=== PATIENT | male | born 1970 | race Caucasian/White ===

== ENCOUNTER 2017-12-05 10:55 | Emergency (ER) | payer MEDICAID, SELFPAY ==
[2017-12-05 10:56] VITALS: BP 152/94; PULSE 109; RESP 16; TEMP 36.4; O2SAT 96; BMI 31.8
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
[2017-12-05] MEDS: Tetracaine 0.5% Ophthalmic Bottle 1 DRP LEFT EYE (11:30)
--- NOTE | 2017-12-05 13:10 | ED.DEP ---
ED Disposition - Plan for ED Patient: Disposition: Home or Assisted Living Chief Complaint: Eye Problem Instructions: ED Eye Injury Corneal Abrasion Referrals: Care Physician,No Primary [Primary Care Provider] - Dio Arredondo MD [STAFF PHYSICIAN] - As soon as possible Additional Instructions: Go to Dr. Arredondo' office immediately for an eye exam. Do not go home first or go get lunch. [address] [place] [address]
== END 2017-12-05 13:18 | disposition home or self-care (01) ==
PROVIDERS: Emergency Provider Emergency Medicine
DX: S05.02XA Injury of conjunctiva and corneal abrasion without foreign body, left eye, initial encounter (principal); H57.12 Ocular pain, left eye; W22.8XXA Striking against or struck by other objects, initial encounter; Y93.9 Activity, unspecified; Y92.9 Unspecified place or not applicable; Y99.0 Civilian activity done for income or pay; Z72.0 Tobacco use
CPT/HCPCS: 99281

== ENCOUNTER 2018-09-23 13:52 | Emergency (ER) | payer MEDICAID, SELFPAY ==
[2018-09-23 13:54] VITALS: BP 164/77; PULSE 106; RESP 17; TEMP 37.1; O2SAT 98; BMI 36.3
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
--- NOTE | 2018-09-23 15:19 | ED.DEP ---
ED Disposition - Plan for ED Patient: Instructions: ED Tooth Pain Prescriptions: Oxycodone HCl/Acetaminophen [Percocet 5/325] 1 tablet PO Q6H PRN PRN 3 Days #12 tablet PRN Reason: Pain Penicillin V Potassium 500 mg PO 4X/DAY #40 tablet
--- NOTE | 2018-09-23 15:31 | ED.VISSUMM ---
- ER Visit Summary Date of Service: 09/23/18 Chief Complaint: Toothache History of Present Illness: The patient is a 48 M presenting with dental pain. He states this started yesterday. He has pain right lower jaw. He has an appointment with his dentist next Sunday. He has tried Tylenol at home. Denies other complaints. Physical Examination: Vitals are stable. Patient is afebrile. Alert no acute distress. HEENT exam right lower molar tenderness with no surrounding fluctuance. No sublingual edema Neck is supple. Lungs are clear and equal bilaterally. Heart is regular rate and rhythm. Extremities are unremarkable. Skin is warm and dry. No focal neurologic deficit. Remainder of exam is unremarkable. Emergency Department Course and Treatment: Patient was given Percocet x1, penicillin. He is advised to follow-up with his dentist as scheduled. Advised return to ED if worsening complaints. Disposition: Discharge home Impression: Odontalgia This note was generated with [employer] dictation software. It may contain incorrect words, spelling, and punctuation that were not noted in review of the chart prior to signing ED Disposition - Plan for ED Patient: Instructions: ED Tooth Pain Prescriptions: Oxycodone HCl/Acetaminophen [Percocet 5/325] 1 tablet PO Q6H PRN PRN 3 Days #12 tablet PRN Reason: Pain Penicillin V Potassium 500 mg PO 4X/DAY #40 tablet
[2018-09-23] MEDS: oxyCODONE 5 MG Tablet PO (15:37)
[2018-09-23] MEDS: Penicillin Vk 250 MG Tablet 500 MG PO (15:37)
== END 2018-09-23 15:42 | disposition home or self-care (01) ==
PROVIDERS: Emergency Provider Emergency Medicine
DX: K08.89 Other specified disorders of teeth and supporting structures (principal); Z72.0 Tobacco use
CPT/HCPCS: 99283

== ENCOUNTER 2018-10-22 02:03 | Emergency (ER) | payer MEDICAID, SELFPAY ==
[2018-10-22 02:05] VITALS: BP 151/126; PULSE 102; RESP 18; TEMP 36.9; O2SAT 96; BMI 33.0
[2018-10-22 02:10] VITALS: BP 158/81
[2018-10-22] MEDS: HYDROcodone Bitartrate/Apap 5/325 Tablet PO (03:33)
[2018-10-22] MEDS: Clindamycin HCl 150 MG Capsule 300 MG PO (03:40)
[2018-10-22 03:43] VITALS: BP 145/82; PULSE 92; RESP 18; O2SAT 94
--- NOTE | 2018-10-22 03:44 | ED.DCSUM_ITS ---
- ER Visit Summary Date of Service: 10/22/18 Chief Complaint: Dental pain and right leg pain History of Present Illness: The patient is a 48 M who presents with dental pain and right leg pain. His dental pain is been present for 3 days. He complains of left lower dental pain. He has an appointment with a dentist next week. He also was recently treated with penicillin for right-sided dental pain about 2-3 weeks ago. He also complains of right leg pain and swelling for the past 4 days. This is isolated to the calf. He is concerned because he has a history of prior DVT. However these were always provoked and related to recent surgery. He denies any injury or surgery. Physical Examination: Heart rate 102 vitals otherwise unremarkable Moist mucous membranes Patient has widespread dental decay no focal dental abscess no facial or jaw swelling Heart regular rate and rhythm Lungs are clear Abdomen soft Patient has edema of the lower extremities, he has some mild baseline edema but notes that it is increased from baseline on the right. 2+ edema on the right, 1+ on the left Patient does have calf tenderness on the right Easily palpable dorsalis pedis pulse with brisk capillary refill skin is warm and no pallor he does not have exam findings suggestive of phlegmasia cerulea dolens Test Results: Declined Emergency Department Course and Treatment: Initial plan was to obtain screening laboratory studies and empirically treat with Lovenox until he can return for venous duplex later today. A venous duplex is not available overnight. However patient states that his ride is here and has to be at work. He states that he needs to leave. I explained that I do not feel empirically getting anticoagulation without having laboratory studies is safe. Given that he can have an ultrasound in several hours I feel empiric Lovenox at this point versus several hours from now is likely of only minimal benefit regardless. He does understand to return for new or worsening. Venous duplex was ordered for once ultrasound is available this morning. Patient discharged. Treatment Plan: [] Disposition: Discharge Impression: Odontalgia Right leg pain and swelling This note was generated with [employer] dictation software. It may contain incorrect words, spelling, and punctuation that were not noted in review of the chart prior to signing ED Disposition - Plan for ED Patient: Referrals: Care Physician,No Primary [Primary Care Provider] -
--- NOTE | 2018-10-22 03:46 | DCINST.ED_ITS ---
ED Disposition - Plan for ED Patient: Instructions: ED Tooth Pain, ED Leg Swelling Unilateral Prescriptions: Hydrocodone Bitart/Apap 5-325 [[place] 5MG-325MG] 1 tab PO Q6H PRN PRN 3 Days #10 tab PRN Reason: Pain Clindamycin HCl [Cleocin] 300 mg PO TID #30 cap Referrals: Care Physician,No Primary [Primary Care Provider] -
--- NOTE | 2018-10-22 03:50 | ED.RN ---
PATIENT DID NOT HAVE A RIDE TO GET HOME SO HE DID NOT WANT TO STAY AND GET THE BLOOD WORK DONE. HE IS GOING TO COME BACK FOR THE VENOUS DOPPLER LATER TODAY THOUGH.
== END 2018-10-22 03:50 | disposition home or self-care (01) ==
PROVIDERS: Emergency Provider Emergency Medicine
DX: K08.89 Other specified disorders of teeth and supporting structures (principal); K02.9 Dental caries, unspecified; R19.7 Diarrhea, unspecified; M79.604 Pain in right leg; R60.0 Localized edema; M79.89 Other specified soft tissue disorders; Z72.0 Tobacco use; Z86.718 Personal history of other venous thrombosis and embolism
CPT/HCPCS: 99283

== ENCOUNTER → 2018-10-23 15:23 | Outpatient (CLI) | payer MEDICAID, SELFPAY ==
[2018-10-22 02:05] VITALS: BMI 33.0
--- NOTE | 2018-10-23 15:27 | VDLE_ITS ---
Reason For Study: SWELLING RIGHT LEFT GSV is normal. CFV is compressible, spontaneous, phasic, CFV is compressible, spontaneous, phasic, competent, and demonstrates normal competent and demonstrates normal augmentation. augmentation. FV is compressible, spontaneous, phasic, competent and demonstrates normal augmentation. POP V is compressible, spontaneous, phasic, competent and demonstrates normal augmentation. T/P Trunk is compressible. PTV is compressible. RT PerV is compressible. Procedure Exam performed in department. The exam was diagnostic. A preliminary report was called and/or faxed to Dr. Calderon ED. Interpretation Summary Deep veins of the right lower extremity are patent and compressible segmentally. There is no evidence of right lower extremity deep vein thrombosis. Valvular competence appears intact within the proximal deep venous system on the right . The right greater saphenous vein appears patent and compressible segmentally. Ordering Physician: Lance Calderon Referring Physician: LEANA PCP Performed By: Jinny Bustamante, MCKENZIE, RVT
== END ==
PROVIDERS: Referring Provider Emergency Medicine; Visit Provider Emergency Medicine
DX: M79.89 Other specified soft tissue disorders (principal)
CPT/HCPCS: 93971

== ENCOUNTER 2018-12-02 13:09 | Emergency (ER) | payer MEDICAID, SELFPAY ==
[2018-12-02 13:10] VITALS: BP 143/93; PULSE 101; RESP 18; TEMP 36.7; O2SAT 95; BMI 30.9
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
[2018-12-02] MEDS: Famotidine 20 MG Tablet 40 MG PO (14:32)
[2018-12-02] MEDS: Erythromycin Base 1 OPTH.TUBE 1 APPLIC EACH EYE ×2 (14:33→16:14)
[2018-12-02] MEDS: DiphenhydrAMINE 25 MG Capsule 50 MG PO (14:33)
[2018-12-02 15:11] LABS: Absolute Lymphocyte Count 1.46 X10^3/ul (0.83-4.51); Basophil# 0.04 X10^3/uL; Basophil% 0.5 % (0-1); Eosinophil# 0.23 X10^3/uL; Hematocrit 46.1 % (40-54); Hemoglobin 15.4 g/dl (13.0-16.5); Lymphocyte # 1.46 X10^3/ul (4.0); Lymphocyte % 19.3 % (19-41); Mean Corp Hgb Conc 33.4 g/gl (32-36); Mean Corpuscular Hgb 32.3 pg (27.0-32.0); Mean Corpuscular Volume 96.6 fL (80-94); Mean Platelet Vol. 10.5 fl (6.2-12.0); Monocyte# 0.82 X10^3/uL; Monocyte% 10.8 % (0-10); Neutrophil # 4.99 X10^3/uL (2.7-7.7); Neutrophil % 66.1 % (47-70); Platelet Count 195 K/mm3 (150-450); RBC Distribution Width CV 13.1 % (11.6-14.6); RBC Distribution Width SD 46.3 fl (35.1-43.9); Red Blood Count 4.77 M/mm3 (4.6-6.2); White Blood Count 7.6 K/mm3 (4.4-11.0)
[2018-12-02] MEDS: Ondansetron 4 MG/2 ML Vial IV (15:12)
[2018-12-02] MEDS: Morphine 4 MG/ML Syringe IV (15:12)
[2018-12-02 15:13] LABS: POSITIVE COUNT NO; POSITIVE DIFFERENTIAL NO; POSITIVE MORPHOLOGY NO
[2018-12-02] MEDS: 0.9% Normal Saline 1,000 ML 30 ML IV (15:13)
[2018-12-02 15:24] LABS: AST(SGOT) 147 U/L (15-37); Albumin, Serum 3.6 g/dL (3.2-5.0); Alkaline Phosphatase 108 U/L (45-117); BUN 11 mg/dL (7-18); BUN/Creat Ratio 13.7 RATIO (10-20); Calcium,Total 8.8 mg/dL (8.5-10.1); EST Glomerular Filtration Rate 108 mL/min (>60); Est Glom Filt Rate - Afr Amer 131 mL/min (>60); Estimated Creatinine Clearance 124.84 ml/min; Globulin 4.2 g/dL (2.2-4.2); Glucose 115 mg/dL (74-106); Lipase 123 U/L (73-393); Protein, Total 7.8 g/dL (6.4-8.2)
[2018-12-02 15:25] LABS: Alanine Aminotransfer ALT/SGPT 267 U/L (16-61); Anion Gap 3 (5-15); Bilirubin, Direct 0.16 mg/dL (0.00-0.30); Chloride 105 mmol/L (98-107); Sodium Level 136 mmol/L (136-145)
--- NOTE | 2018-12-02 16:02 | ED.DEP ---
ED Disposition - Plan for ED Patient: Instructions: ED Bite Sting Insect Gen Allergic React Referrals: Care Physician,No Primary [Primary Care Provider] - Additional Instructions: Please take Benadryl [id number] every 6 hours, Pepcid 20 mg twice a day [id number], consider using Aveeno bath to help with the rash follow-up with your outpatient providers tomorrow
--- NOTE | 2018-12-02 16:03 | DCINST.ED_ITS ---
ED Disposition - Plan for ED Patient: Instructions: ED Bite Sting Insect Gen Allergic React Referrals: Care Physician,No Primary [Primary Care Provider] - Additional Instructions: Please take Benadryl [id number] every 6 hours, Pepcid 20 mg twice a day [id number], consider using Aveeno bath to help with the rash follow-up with your outpatient providers tomorrow
[2018-12-02 16:28] VITALS: BP 136/77; PULSE 79; RESP 18; O2SAT 95
== END 2018-12-02 16:28 | disposition home or self-care (01) ==
LOC: ED 14:36
PROVIDERS: Emergency Provider Emergency Medicine
DX: L50.0 Allergic urticaria (principal); H10.9 Unspecified conjunctivitis; R10.9 Unspecified abdominal pain; G89.29 Other chronic pain
CPT/HCPCS: 80048; 80076; 83690; 85025; 96374; 96375; 99285; J7030; A4216; J2405

== ENCOUNTER 2019-03-11 09:08 | Emergency (ER) | payer MEDICAID, SELFPAY ==
[2019-03-11 09:09] VITALS: BP 154/93; PULSE 109; RESP 17; TEMP 36.7; O2SAT 96; BMI 33.6
--- NOTE | 2019-03-11 09:22 | ED.VISSUMM ---
- ER Visit Summary Date of Service: 03/11/19 Chief Complaint: Left lower lip swelling History of Present Illness: The patient is a 48 M no significant past medical history. Patient just takes [id number] medication. He states that he has a cold sore on his left lower lip. He lanced it last night and is developed swelling in his left lower lip today. Said he used a needle and he lanced it twice. Physical Examination: Middle-aged male no acute distress vital signs stable afebrile. HEENT exam very poor dentition. Mild gum swelling. His left lower lip is swollen. Mildly tender. This may just be swelling and bruising and soft tissue versus an early infection. Otherwise his face is unremarkable. He has no trouble swallowing or breathing. No signs of Scott's angina. Neck is nontender without lymphadenopathy. Lungs are clear to auscultation. Heart is regular rhythm without murmur. Abdomen is soft and nontender. He has chronic 1+ edema both lower extremities. He is moving all 4 extremities. Neurologically he is awake and alert with no focal motor deficits. Test Results: None Emergency Department Course and Treatment: Clinically this may just be soft tissue swelling from bleeding into the gum after he lanced it to be cautious I will start him on antibiotic due to his poor dentition and the risk that this is an early infection after he lanced himself. Will be given a dose of Pen-Vee K in the ER. He has a dental appointment later this week. Treatment Plan: Pen-Vee K 4 times daily for 7 days. Ice to the area. Motrin for pain and swelling. Disposition: Discharge Impression: Left lower lip swelling after lancing a blister Left lower lip hematoma rule out infection This note was generated with [employer] dictation software. It may contain incorrect words, spelling, and punctuation that were not noted in review of the chart prior to signing ED Disposition - Plan for ED Patient: Referrals: Care Physician,No Primary [Primary Care Provider] -
--- NOTE | 2019-03-11 09:25 | ED.DEP ---
ED Disposition - Plan for ED Patient: Disposition: Home or Assisted Living Prescriptions: Penicillin Vk [Pen-Vee K , V-Cillin K] 500 mg PO 4X/DAY #30 tab Prescription Printed Referrals: Fadi Landin MD [NON-STAFF] - As Needed Additional Instructions: Ice to your lip 4 times a day for the next 2 days for 30 minutes to an hour each time. Motrin for pain and swelling. Penicillin 1 pill 4 times a day for the next 7 days in case this is an early infection. This may just be soft tissue swelling from you lancing the blister. Follow-up with your dentist.
[2019-03-11 09:45] VITALS: BP 113/77; PULSE 62; RESP 15; O2SAT 98
[2019-03-11] MEDS: Penicillin Vk 250 MG Tablet 500 MG PO (09:53)
== END 2019-03-11 09:54 | disposition home or self-care (01) ==
LOC: ED 09:32
PROVIDERS: Emergency Provider Emergency Medicine
DX: S00.531A Contusion of lip, initial encounter (principal); X58.XXXA Exposure to other specified factors, initial encounter; Y92.9 Unspecified place or not applicable; Z72.0 Tobacco use
CPT/HCPCS: 99283

== ENCOUNTER 2019-03-29 16:30 | Emergency (ER) | payer MEDICAID, SELFPAY ==
[2019-03-29 16:32] VITALS: BP 127/89; PULSE 114; RESP 18; TEMP 36.9; O2SAT 96; BMI 39.2
--- NOTE | 2019-03-29 16:53 | CT_ITS ---
STUDY: CT ABDOMEN AND PELVIS WITHOUT CONTRAST REASON FOR EXAM: Male, 48 years old. Left testicular left flank pain, prior bowel surgery RADIATION DOSAGE (If Supplied By Facility): CTDIvol = ( 23.58 ) mGy, DLP = ( 1437.42 ) mGycm TECHNIQUE: Transaxial images were obtained from the dome of the diaphragm to the symphysis pubis without oral contrast, and without intravenous contrast. Sagittal and coronal images were reconstructed. Individualized dose optimization techniques were used for this CT. COMPARISON: 09 November 2014 FINDINGS: The visualized lung bases are unremarkable. The visualized portions of the heart are within normal limits. The liver is fatty infiltrated without focal lesions.. Normal gallbladder and extrahepatic biliary system. Normal spleen. Normal pancreas. Normal bilateral adrenal glands. Normal right kidney. Normal left kidney. There is no intestinal obstruction. Normal abdominal aorta. Normal inferior vena cava. Normal retroperitoneum. Normal urinary bladder. There is ventral abdominal mesh hernia repair. There is a left inguinal fat hernia.. Normal osseous structures. There is possible scrotal hydrocele. Refer to dedicated ultrasonographic examination. CT/Abdomen/Pelvis without Cont IMPRESSION: 1. No acute abdominal findings. 2. No urinary stones. 3. Left inguinal fat hernia, not containing bowel. Electronically Signed: Liset Orellana, at 18:07 EDT Tel , Service support ,
--- NOTE | 2019-03-29 16:54 | US_ITS ---
STUDY: TESTICULAR ULTRASONOGRAPHY REASON FOR EXAM: Male, 48 years old. TECHNIQUE: Grayscale and Doppler ultrasonography of the scrotum was performed. COMPARISON: None. FINDINGS: The right testis measures 4.3 x 3.6 x 2.8 cm. Vascular flow is normal. The left testis measures 4.3 x 3.5 x 3 cm. There is increased blood flow to the left testicle and epididymis. There is a 5 mm epididymal cyst. There is a loculated left hydrocele. US/Testicular with Arterial Flow IMPRESSION: 1. Possible left epididymoorchitis. 2. Loculated left hydrocele. Electronically Signed: Liset Orellana, at 18:23 EDT Tel , Service support ,
[2019-03-29] MEDS: 0.9% Normal Saline 1,000 ML 1000 ML IV (17:08)
[2019-03-29] MEDS: Morphine 4 MG/ML Syringe IV ×2 (17:08→18:11)
[2019-03-29] MEDS: Ondansetron 4 MG/2 ML Vial IV (17:08)
--- NOTE | 2019-03-29 17:17 | ED.VIS.GEN ---
History of Present Illness Informant: Patient Onset: Days - 2 days Context: Gradual Onset Timing: Continuous Quality: sharp Location: left testicle Current Severity: Severe Maximum Severity: Severe Worsened by: movement, palpation Relieved by: nothing Associated Symptoms: flank back and low back pain Narrative: 48-year-old male presents to the emergency department with 2 days of progressively worsening left testicular pain. He states it woke him up from sleep 2 days ago in the morning. It is been constant since that time. They radiates to his left lower quadrant and left flank and he is also having left lower back pain. Is worse with any type of palpation or movement. Nothing that he is tried is made it feel better. He states that he has been having hematuria since this morning, total of 2 episodes. He is also having some pressure with urination. No frequency or urgency. No nausea vomiting or diarrhea. No fevers. He denies abdominal or testicular trauma. He states that he is not concerned for an STD but he is sexually active but he states with only one partner. Denies history of testicular torsion, STD. Denies history of kidney stones. He has a history of multiple abdominal surgeries secondary to right inguinal hernia, as well as a volvulus. He denies any other review of systems. Prior similar symptoms: No Recent Illness/Hospitalization: No <Liam Cordoba - Last Filed: 03/29/19 17:17> <Mireya Macedo - Last Filed: 03/29/19 21:49> Chief Complaint: Male Pain/Injury Past Medical History Prior records reviewed: Yes Past Medical History: - - Hep C, Fatty liver disease, Surgical History: colectomy, herniorrhaphy Lives: Alone Smoking Status: Current every day smoker Alcohol: Occasional Drugs: Marijuana <Liam Cordoba - Last Filed: 03/29/19 17:17> <Mireya Macedo - Last Filed: 03/29/19 21:49> - Allergies and Home Meds Allergies/Adverse Reactions: Allergies No Known Allergies Allergy (Verified 03/29/19 16:31) Primary Care Physician: Care Physician,No Primary [Primary Care Provider] - Review of Systems All systems negative except as indicated General: Denies: Chills, Fever Gastrointestinal: Reports: Abdominal pain Genitourinary: Reports: Dysuria, Hematuria, - - left testicular pain <Liam Cordoba - Last Filed: 03/29/19 17:17> Physical Exam Vital Signs/Narrative: Vital Signs Temp Pulse Resp BP Pulse Ox 03/29/19 16:32 98.4 F 114 H 18 127/89 H 96 Inital Vital Signs reviewed: Yes General: Well nourished, Well developed, Obese, No Acute Distress Head: Normocephalic, Atraumatic Eyes: Perrl, EOMI ENT: Moist mucous membranes Neck: Supple, Nontender Cardiovascular: Regular rate, Regular rhythm, No murmurs Respiratory: No distress, CTA bilaterally, Chest nontender Abdomen: Soft, Nondistended, Normal bowel sounds, No masses, Tender. Negative for: Umbilical hernia, Hernia irreducible : - - Scrotum is swollen worse on the left. Left testicle is tender on palpation. No masses are palpated. There is no scrotal warmth or erythema, rash, or gangrenous changes. There is no palpable inguinal lymphadenopathy. I do not appreciate an obvious hernia. Back: Nontender, Normal Inspection Extremities: Nontender, No edema Skin: Normal color, No rash Neurological: Alert, Oriented x3 Psychological: Normal affect <Liam Cordoba - Last Filed: 03/29/19 17:17> Vital Signs/Narrative: Vital Signs Temp Pulse Resp BP Pulse Ox 03/29/19 20:39 100.0 F H 03/29/19 20:00 18 03/29/19 18:30 111 H 18 145/87 H 93 <Mireya Macedo - Last Filed: 03/29/19 21:49> Diagnostic/Tx/Re-eval Impressions Abdomen/Pelvis CT 03/29/19 16:53 IMPRESSION: 1. No acute abdominal findings. 2. No urinary stones. 3. Left inguinal fat hernia, not containing bowel. Electronically Signed: Liset Orellana, at 18:07 EDT Tel , Service support , Testicular Ultrasound 03/29/19 16:54 IMPRESSION: 1. Possible left epididymoorchitis. 2. Loculated left hydrocele. Electronically Signed: Liset Orellana, at 18:23 EDT Tel , Service support , 03/29/19 16:53 Abdomen/Pelvis without Cont [CT] Stat 03/29/19 16:54 US Testicular [Testicular with Arterial Flow] [US] Stat Laboratory Results 03/29/19 03/29/19 03/29/19 17:08 17:08 18:16 WBC 21.4 H RBC 4.84 Hgb 16.0 Hct 47.7 MCV 98.6 H MCH 33.1 H MCHC 33.5 RDW Std Deviation 44.1 H RDW Coeff of Tg 12.2 Plt Count 261 MPV 10.1 Immature Gran % (Auto) 0.700 Neut % (Auto) 83.7 H Lymph % (Auto) 6.0 L [place] % (Auto) 8.9 Eos % (Auto) 0.4 Baso % (Auto) 0.3 Absolute Neuts (auto) 17.9 H Absolute Lymphs (auto) 1.29 Nucleated RBC % 0 Differential Comment SCANNED Diff Path Review May foll Sodium 134 L Potassium 3.8 Chloride 100 Carbon Dioxide 30.0 Anion Gap 4 L BUN 9 Creatinine 0.85 Estim Creat Clear Calc 114.12 Est GFR (MDRD) Af Amer 122 Est GFR (MDRD) Non-Af 101 BUN/Creatinine Ratio 10.5 Glucose 143 H Lactic Acid 1.4 Calcium 9.4 Urine Color Urine Clarity Urine pH Ur Specific Gabriels Urine Protein Urine Glucose (UA) Urine Ketones Urine Occult Blood Urine Nitrite Urine Bilirubin Urine Urobilinogen Ur Leukocyte Esterase Urine RBC Urine WBC Ur Squamous Epith Cells Urine Bacteria Urine Mucus 03/29/19 20:40 WBC RBC Hgb Hct MCV MCH MCHC RDW Std Deviation RDW Coeff of Tg Plt Count MPV Immature Gran % (Auto) Neut % (Auto) Lymph % (Auto) [place] % (Auto) Eos % (Auto) Baso % (Auto) Absolute Neuts (auto) Absolute Lymphs (auto) Nucleated RBC % Differential Comment Diff Path Review Sodium Potassium Chloride Carbon Dioxide Anion Gap BUN Creatinine Estim Creat Clear Calc Est GFR (MDRD) Af Amer Est GFR (MDRD) Non-Af BUN/Creatinine Ratio Glucose Lactic Acid Calcium Urine Color Yellow Urine Clarity Sl. Cloudy Urine pH 7.0 Ur Specific Gabriels 1.005 Urine Protein Negative Urine Glucose (UA) Normal Urine Ketones Negative Urine Occult Blood 25 H Urine Nitrite Positive H Urine Bilirubin Negative Urine Urobilinogen Normal Ur Leukocyte Esterase 500 H Urine RBC 0 SEEN Urine WBC 50-100 SEEN Ur Squamous Epith Cells 0-5 SEEN Urine Bacteria 4+ Urine Mucus 0 SEEN - Medical Decision Making Patient was given morphine, Zofran, and IV fluids. He was given a p.o. dose of Levaquin. I spoke with Dr. Segura to help arrange close follow-up. He states that it would be reasonable to try outpatient treatment, but if the patient worsens he may require inpatient treatment. Patient and family at bedside are comfortable with this plan. <Mireya Macedo - Last Filed: 03/29/19 21:49> ED Disposition <Liam Cordoba - Last Filed: 03/29/19 17:17> <Mierya Macedo - Last Filed: 03/29/19 21:49> - Plan for ED Patient: Disposition: Home or Assisted Living Diagnosis: Epididymoorchitis Instructions: Epididymitis, Orchitis Prescriptions: levoFLOXacin tablet [Levaquin] 500 mg PO DAILY #10 tablet Oxycodone HCl/Acetaminophen [Percocet 5/325] 1 tablet PO Q6H PRN PRN 3 Days #12 tablet PRN Reason: Pain Referrals: Levi Segura MD [STAFF PHYSICIAN] - 3-5 Days
[2019-03-29 17:26] LABS: Absolute Lymphocyte Count 1.29 X10^3/uL (0.83-4.51); Absolute Neutrophil Count 17.9 X10^3/uL (2.0-7.7); Basophil# 0.07 X10^3/uL; Basophil% 0.3 % (0-1); Eosinophil# 0.09 X10^3/uL; Eosinophils% 0.4 % (0-5); Hematocrit 47.7 % (40-54); Lymphocyte # 1.29 X10^3/ul (4.0); Mean Corp Hgb Conc 33.5 g/dL (32-36); Mean Corpuscular Hgb 33.1 pg (27.0-32.0); Mean Corpuscular Volume 98.6 fL (80-94); Mean Platelet Vol. 10.1 fl (6.2-12.0); Monocyte% 8.9 % (0-10); NRBC Flagged by Analyzer 0 % (0-5); Neutrophil # 17.92 X10^3/uL (2.7-7.7); Neutrophil % 83.7 % (47-70); POSITIVE DIFFERENTIAL YES; Platelet Count 261 K/mm3 (150-450); RBC Distribution Width CV 12.2 % (11.6-14.6); RBC Distribution Width SD 44.1 fl (35.1-43.9); Red Blood Count 4.84 M/mm3 (4.6-6.2); White Blood Count 21.4 K/mm3 (4.4-11.0)
[2019-03-29 17:27] LABS: Differential Indicated SCAN CRITERIA MET
[2019-03-29 17:32] LABS: Anion Gap 4 (5-15); BUN 9 mg/dL (7-18); BUN/Creat Ratio 10.5 RATIO (10-20); Calcium,Total 9.4 mg/dL (8.5-10.1); Chloride 100 mmol/L (98-107); Creatinine, Serum 0.85 mg/dL (0.70-1.30); EST Glomerular Filtration Rate 101 mL/min (>60); Est Glom Filt Rate - Afr Amer 122 mL/min (>60); Estimated Creatinine Clearance 114.12 ml/min; Glucose 143 mg/dL (74-106); Potassium 3.8 mmol/L (3.5-5.1); Sodium Level 134 mmol/L (136-145)
[2019-03-29 18:04] LABS: Differential Comment SCANNED
[2019-03-29 18:30] VITALS: BP 145/87; PULSE 111; RESP 18; O2SAT 93
[2019-03-29] MEDS: levoFLOXacin 500 MG Tablet PO (18:51)
[2019-03-29 18:53] LABS: Lactic Acid 1.4 mmol/L (0.4-2.0)
[2019-03-29 20:00] VITALS: RESP 18
[2019-03-29 20:39] VITALS: TEMP 37.8
[2019-03-29 20:47] LABS: Mucous, Urine 0 SEEN /hpf (<or=2+); Red Blood Cells-Urine 0 SEEN /hpf (0-5)
[2019-03-29 20:53] LABS: Color, Urine Yellow (Yellow); Glucose, Dipstick Normal (Normal); Ketone-Dipstick Negative (Negative); Leukocyte Esterase-Dipstick 500 /ul (Negative); Nitrite-Dipstick Positive (Negative); Occult Blood-Urine 25 /ul (Negative); Protein-Dipstick Negative (Negative); Specific Gravity, Urine 1.005 (1.002-1.030); Urine Bilirubin Dipstick Negative (Negative); Urine Clarity Sl. Cloudy (Clear); Urine Urobilinogen Normal (Normal)
[2019-03-29 20:58] LABS: White Blood Cells 50-100 SEEN /hpf (0-5)
[2019-03-29 20:59] LABS: Bacteria 4+ /hpf (None Seen); Squamous Epithelial Cells - UA 0-5 SEEN /hpf (0-5)
[2019-03-29 22:25] LABS: Chlamydia Trachomatis by PCR Negative (Negative); Neisserai gonorrhoeae by PCR Negative (Negative); Probe Check PASS; Sample Adequacy Control PASS; Specimen Processing Control PASS
[2019-04-01 12:19] LABS: Pathologist Review Reviewed
== END 2019-03-29 22:00 | disposition home or self-care (01) ==
PROVIDERS: Emergency Medicine; Emergency Provider Physician Assistant Medical
DX: N45.3 Epididymo-orchitis (principal); R31.9 Hematuria, unspecified; E66.9 Obesity, unspecified; F17.200 Nicotine dependence, unspecified, uncomplicated; Z86.19 Personal history of other infectious and parasitic diseases; Z90.49 Acquired absence of other specified parts of digestive tract
CPT/HCPCS: 74176; 76870; 80048; 81001; 83605; 85025; 87491; 87591; 93976; 96361; 96374; 96375; 96376; 99284; J7030; A4216; J2405

== ENCOUNTER 2019-03-30 23:19 | Emergency (ER) | payer MEDICAID, SELFPAY ==
[2019-03-29 16:32] VITALS: BMI 39.2
[2019-03-30 23:20] VITALS: BP 153/94; PULSE 112; RESP 15; TEMP 36.7; O2SAT 99; BMI 34.9
--- NOTE | 2019-03-31 00:14 | ED.VIS.GEN ---
History of Present Illness Chief Complaint: Male Pain/Injury Informant: Patient Narrative: Patient presents with left testicular swelling. He was seen in the emergency department yesterday with a full work-up and diagnosed with epididymitis orchitis with hydrocele. Lab work showed a white count of 21,000. 4+ bacteria. He is on Levaquin. He has had 2 doses. He comes in because of increased swelling in his left testicle. He was concerned about this. Denies any other new symptoms. He was concerned that his antibiotics are working. Past Medical History - Allergies and Home Meds Allergies/Adverse Reactions: Allergies No Known Allergies Allergy (Verified 03/30/19 23:22) Primary Care Physician: Care Physician,No Primary [Primary Care Provider] - Prior records reviewed: Yes Past Medical History: - - Epididymitis, orchitis Surgical History: colectomy, herniorrhaphy Smoking Status: Current every day smoker Alcohol: None Drugs: None Review of Systems General: Denies: Chills, Fever, Sweats Eyes: Denies: Visual changes - bilaterally, Diplopia ENT: Denies: Rhinorrhea, Sore throat Cardiovascular: Denies: Chest pain, Palpitations Respiratory: Denies: Dyspnea, Cough, Dyspnea on exertion Gastrointestinal: Denies: Abdominal pain, Nausea, Vomiting, Diarrhea, Melena, Hematochezia Genitourinary: Reports: - - See HPI. Denies: Dysuria, Hematuria, Frequency Musculoskeletal: Denies: Back pain, Extremity Pain Skin: Denies: Rash, Wounds Neurological: Denies: Headache, Weakness, Numbness Physical Exam Vital Signs/Narrative: Vital Signs Temp Pulse Resp BP Pulse Ox 03/30/19 23:20 98.0 F 112 H 15 153/94 H 99 General: Well nourished, Well developed, No Acute Distress Head: Normocephalic, Atraumatic Eyes: Perrl, EOMI ENT: Moist mucous membranes, No rhinorrhea Neck: Supple, Nontender Cardiovascular: Regular rate, Regular rhythm, No murmurs Respiratory: No distress, CTA bilaterally, Chest nontender Abdomen: Soft, Nontender, Nondistended, Normal bowel sounds : - - Patient's penis exam is normal. Right testicle and scrotum normal. Left testicle is swollen with a hydrocele and tender in the epididymis as well as the testicle. It is able to be moved around. Negative cremasteric reflex. No evidence of cellulitis or gangrene. At this time patient stated that the swelling is worse and thinks it is double. Back: Nontender, Normal Inspection Extremities: Nontender, No edema Skin: Normal color, No rash Neurological: Alert, Oriented x3, Cranial nerves II-XII grossly intact, Normal Strength, Normal Sensation Psychological: Normal affect, Normal Mood Diagnostic/Tx/Re-eval - Medical Decision Making I discussed care with the patient. He does have an epididymitis orchitis of the left testicle and hydrocele. Yesterday his white count was 21,000. He had 4+ bacteria. He has had 2 doses of levofloxacin. He was concerned because he had increased swelling in his left testicle area. He has been using Percocet with good relief of symptoms. I discussed IV antibiotics and admission with the patient and further lab work. At this time he would like to hold off on this. He wants to give it more time to have the levofloxacin start working. I think this is reasonable. He is not toxic. He does not appear septic. He has more pain medicine at home. He has a follow-up with urology. He will return if he continues to worsen. I do not suspect a testicular torsion. Patient was reassured that his gonorrhea and Chlamydia testing were negative from yesterday. ED Disposition - Plan for ED Patient: Disposition: Home or Assisted Living Diagnosis: Epididymoorchitis Instructions: Orchitis, Epididymitis Referrals: Levi Segura MD [STAFF PHYSICIAN] -
== END 2019-03-31 00:24 | disposition home or self-care (01) ==
PROVIDERS: Emergency Provider Emergency Medicine
DX: N45.3 Epididymo-orchitis (principal); N43.3 Hydrocele, unspecified; F17.200 Nicotine dependence, unspecified, uncomplicated; Z90.49 Acquired absence of other specified parts of digestive tract
CPT/HCPCS: 99282

== ENCOUNTER → 2019-04-15 16:10 | Outpatient (CLI) | payer MEDICAID, SELFPAY ==
[2019-03-30 23:20] VITALS: BMI 34.9
[2019-04-15 17:31] LABS: Absolute Neutrophil Count 4.9 X10^3/uL (2.0-7.7); Basophil# 0.04 X10^3/uL; Basophil% 0.5 % (0-1); Eosinophils% 2.7 % (0-5); Hematocrit 47.2 % (40-54); Hemoglobin 15.3 g/dL (13.0-16.5); Mean Corp Hgb Conc 32.4 g/dL (32-36); Mean Corpuscular Hgb 32.2 pg (27.0-32.0); Mean Corpuscular Volume 99.4 fL (80-94); Mean Platelet Vol. 10.6 fl (6.2-12.0); Monocyte# 0.83 X10^3/uL; Monocyte% 11.1 % (0-10); NRBC Flagged by Analyzer 0 % (0-5); Neutrophil % 65.4 % (47-70); Platelet Count 220 K/mm3 (150-450); RBC Distribution Width CV 12.3 % (11.6-14.6); RBC Distribution Width SD 45.4 fl (35.1-43.9); Red Blood Count 4.75 M/mm3 (4.6-6.2); White Blood Count 7.5 K/mm3 (4.4-11.0)
[2019-04-15 17:47] LABS: ALB/GLOB Ratio 0.6 RATIO (0.9-2.4); AST(SGOT) 150 U/L (15-37); Alanine Aminotransfer ALT/SGPT 185 U/L (16-61); Albumin, Serum 3.1 g/dL (3.2-5.0); Alkaline Phosphatase 164 U/L (45-117); Anion Gap 8 (5-15); BUN 10 mg/dL (7-18); BUN/Creat Ratio 11.5 RATIO (10-20); Calcium,Total 9.4 mg/dL (8.5-10.1); Chloride 102 mmol/L (98-107); Creatinine, Serum 0.87 mg/dL (0.70-1.30); EST Glomerular Filtration Rate 98 mL/min (>60); Est Glom Filt Rate - Afr Amer 119 mL/min (>60); Glucose 148 mg/dL (74-106); Potassium 3.9 mmol/L (3.5-5.1); Protein, Total 8.1 g/dL (6.4-8.2); Sodium Level 140 mmol/L (136-145)
[2019-04-15 18:05] LABS: BNP,B-Type NATRIURETIC PEPTIDE 7.4 pg/mL (0-100)
== END ==
PROVIDERS: Family Provider Family Medicine; PCP Family Medicine; Referring Provider Family Medicine; Visit Provider Family Medicine
DX: N45.1 Epididymitis (principal); M79.89 Other specified soft tissue disorders
CPT/HCPCS: 36415; 80053; 83880; 85025

== ENCOUNTER 2019-09-16 10:21 | Emergency (ER) | payer MEDICAID, SELFPAY ==
[2019-09-16 10:23] VITALS: BP 92/76; PULSE 83; RESP 17; TEMP 36.8; O2SAT 96; BMI 39.6
--- NOTE | 2019-09-16 10:27 | EKG12_ITS ---
Test Reason : Blood Pressure : / mmHG Vent. Rate : 085 BPM Atrial Rate : 085 BPM P-R Int : 144 ms QRS Dur : 096 ms QT Int : 408 ms P-R-T Axes : 051 -08 029 degrees QTc Int : 485 ms Normal sinus rhythm Minimal voltage criteria for LVH, may be normal variant Prolonged QT Abnormal ECG Confirmed by JUNIOR TOTH ([id number]), managing editor JAMAICA ESTRADA ([id number]) on 09/18/2019 1:45:23 PM Referred By: ELDON Confirmed By:JUNIOR TOTH
[2019-09-16 10:28] VITALS: BP 104/64; PULSE 88; RESP 20; O2SAT 97
[2019-09-16 11:21] VITALS: BP 103/74; PULSE 68; RESP 18; O2SAT 99
[2019-09-16 11:25] LABS: Absolute Lymphocyte Count 1.05 X10^3/uL (0.83-4.51); Absolute Neutrophil Count 3.9 X10^3/uL (2.0-7.7); Basophil# 0.03 X10^3/uL; Basophil% 0.5 % (0-1); Eosinophil# 0.17 X10^3/uL; Hematocrit 44.9 % (40-54); Hemoglobin 15.1 g/dL (13.0-16.5); Lymphocyte # 1.05 X10^3/ul (4.0); Lymphocyte % 18.5 % (19-41); Mean Corp Hgb Conc 33.6 g/dL (32-36); Mean Corpuscular Volume 98.2 fL (80-94); Mean Platelet Vol. 11.3 fl (6.2-12.0); Monocyte# 0.57 X10^3/uL; NRBC Flagged by Analyzer 0 % (0-5); Neutrophil # 3.85 X10^3/uL (2.7-7.7); Neutrophil % 67.8 % (47-70); Platelet Count 152 K/mm3 (150-450); RBC Distribution Width CV 12.8 % (11.6-14.6); RBC Distribution Width SD 45.8 fl (35.1-43.9); Red Blood Count 4.57 M/mm3 (4.6-6.2); White Blood Count 5.7 K/mm3 (4.4-11.0)
--- NOTE | 2019-09-16 11:30 | RAD_ITS ---
STUDY: X-RAY CHEST REASON FOR EXAM: Male, 49 years old. chest pain, also recent N/V/D TECHNIQUE: PA and lateral views of the chest. COMPARISON: November 28, 2011 FINDINGS: The lungs are clear and expanded. There is no demonstrated pleural abnormality. Normal size heart. Normal mediastinum and andie. Normal visualized pulmonary arteries. Normal visualized aortic arch and descending thoracic aorta. Normal visualized thoracic spine. Normal visualized ribs, clavicles, and shoulders. There is no demonstrated abnormality of the visualized soft tissue structures of the upper abdomen. RAD/Chest PA and Lateral IMPRESSION: Normal x-ray examination of the chest. Electronically Signed: Mike Murrell DO at 11:56 EST Tel , Service support ,
[2019-09-16 11:39] LABS: ALB/GLOB Ratio 0.8 RATIO (0.9-2.4); AST(SGOT) 271 U/L (15-37); Alanine Aminotransfer ALT/SGPT 345 U/L (16-61); Albumin, Serum 3.2 g/dL (3.2-5.0); Alkaline Phosphatase 142 U/L (45-117); Anion Gap 5 (5-15); BUN 13 mg/dL (7-18); BUN/Creat Ratio 18.4 RATIO (10-20); Calcium,Total 8.5 mg/dL (8.5-10.1); Chloride 105 mmol/L (98-107); Creatinine, Serum 0.71 mg/dL (0.70-1.30); EST Glomerular Filtration Rate 125 mL/min (>60); Est Glom Filt Rate - Afr Amer 151 mL/min (>60); Estimated Creatinine Clearance 139.11 ml/min; Globulin 3.9 g/dL (2.2-4.2); Glucose 159 mg/dL (74-106); Potassium 3.7 mmol/L (3.5-5.1); Protein, Total 7.1 g/dL (6.4-8.2); Sodium Level 138 mmol/L (136-145)
[2019-09-16 12:00] VITALS: BP 119/69; PULSE 70; RESP 16; O2SAT 99
[2019-09-16 13:00] VITALS: BP 128/78; PULSE 73; RESP 16; O2SAT 99
--- NOTE | 2019-09-16 13:45 | ED.VISSUMM ---
- ER Visit Summary Date of Service: 09/16/19 Chief Complaint: Chest pain History of Present Illness: The patient is a 49 M who presents with chest pain that began yesterday. Patient states pain is over the left parasternal area. Patient states the pain is sharp. Patient states the pain comes and goes. Patient states he did have some nausea and vomiting with it. Patient admits to some shortness of breath as well as a cough. Patient also admits to some lightheadedness. Patient denies any diaphoresis, palpitations, fevers, chills, or reflux. Patient states nothing makes his pain worse but it is better with rest. Patient admits to some tingling in his right hand but denies any pain down his left arm. Patient's only cardiac risk factor is smoking. Patient has a prior history of DVT but no pulmonary embolism. Physical Examination: Vital signs are stable. Patient is afebrile. Patient is in no acute distress. Oral mucosa is pink and moist. Neck is supple. Trachea is midline. There is no JVD. Heart was regular rate and rhythm. Lungs are clear and equal bilaterally. Abdomen is soft. Bowel sounds are normal. There is no tenderness. Extremities are intact. There is 1+ edema of the lower extremities bilaterally. There is no calf tenderness. Cranial nerves II through XII are intact. There are no focal motor or sensory deficits noted. Test Results: EKG showed normal sinus rhythm with a rate of 85. There are no acute ST or T wave changes. PA and lateral chest x-ray was obtained. There is no acute cardiopulmonary process. This was interpreted by the radiologist and myself. CBC and comprehensive metabolic profile were obtained and were essentially within normal limits with the exception of a slightly elevated bilirubin of 1.1, slightly elevated alk phos of 142, and slightly elevated AST of 271 and ALT of 345. Troponin was normal. Emergency Department Course and Treatment: Patient was feeling better on reevaluation. Patient has a HEART score of 3. Patient has a LUCIANO risk score of 0. Patient was advised that this is low risk for acute cardiac event. Patient was instructed to follow-up with his primary care physician in 5 to 7 days. Patient understood and was agreeable with the plan. All questions were answered. Disposition: Discharge home Impression: Chest pain This note was generated with Eyel[employer] dictation software. It may contain incorrect words, spelling, and punctuation that were not noted in review of the chart prior to signing ED Disposition - Plan for ED Patient: Disposition: Home or Assisted Living Diagnosis: Chest pain of uncertain etiology Instructions: CHEST PAIN, Uncertain Cause Referrals: David Erwin MD [Primary Care Provider] - 3-5 Days
[2019-09-16 13:56] VITALS: BP 116/82; PULSE 70; RESP 16; O2SAT 98
--- NOTE | 2019-09-16 13:56 | ED.RN ---
REVIEWED D/C INSTRUCTIONS, FOLLOW UP CARE, AND S/S THAT WOULD WARRANT A RETURN TO THE ED WITH PT. PT VERBALIZED AN UNDERSTANDING AND DENIES FURTHER QUESTIONS FOR THIS RN. PT SKIN P/W/D, RESP EVEN AND UNLABORED, PT A&O X 3, NO DISTRESS NOTED. PT AMBULATED OUT OF ED, GAIT STEADY.
== END 2019-09-16 13:57 | disposition home or self-care (01) ==
PROVIDERS: Emergency Provider Emergency Medicine; PCP Family Medicine
DX: R07.9 Chest pain, unspecified (principal); R74.8 Abnormal levels of other serum enzymes; E80.6 Other disorders of bilirubin metabolism; R11.2 Nausea with vomiting, unspecified; R05 Cough; R06.02 Shortness of breath; R42 Dizziness and giddiness; R20.2 Paresthesia of skin; R60.0 Localized edema; M54.2 Cervicalgia; M54.9 Dorsalgia, unspecified; E66.9 Obesity, unspecified; F17.200 Nicotine dependence, unspecified, uncomplicated; Z86.718 Personal history of other venous thrombosis and embolism
CPT/HCPCS: 71046; 80053; 84484; 85025; 93005; 99285; J7030; A4216

== ENCOUNTER → 2020-03-01 13:57 | Outpatient (CLI) | payer MEDICAID, SELFPAY ==
--- NOTE | 2020-03-01 14:02 | ART_ITS ---
Reason For Study: PVD Procedure A bilateral lower extremity continuous wave Doppler with analog waveform analysis,segmental pressures,and ankle brachial indexes without exercise. Left Segmental Pressures Left brachial= 141mmHg. Left posterior tibial artery = 167mmHg. Left dorsalis pedis artery = 152mmHg. Left digit = 148 mmHg. The left ankle waveforms are triphasic. Right Segmental Pressures Right brachial= 133mmHg. Right posterior tibial artery = 175mmHg. Right dorsalis pedis artery = 163mmHg. Right digit = 115 mmHg. The right ankle waveforms are triphasic. Indices The right ankle brachial index by the posterior tibial artery is 1.24. The right ankle brachial index by the dorsalis pedis is 1.16. The right digital-brachial index is 0.82. The left ankle brachial index by the posterior tibial artery is 1.18. The left ankle brachial index by the dorsalis pedis is 1.08. The left digital-brachial index is 1.05. Interpretation Summary Triphasic Doppler waveforms are noted at ankle level bilaterally. Pulse-volume recordings appear satisfactory at all levels bilaterally, including low-thigh, calf, ankle, and digital levels. Resting ankle-brachial indices are normal bilaterally. Digital-brachial indices are normal bilaterally. There is no evidence of significant arterial occlusive disease in the lower extremities bilaterally. Ordering Physician: Gabrielle Yang Referring Physician: Gabrielle Yang Performed By: Tia Ling RVT, RDCS and Student
--- NOTE | 2020-03-01 14:28 | CT_ITS ---
STUDY: CTA CHEST REASON FOR EXAM: Male, 49 years old. CHEST PAIN . H/O VENOUS THROMBOSIS AND EMBOLISM, BILAT LEG SWELLING, CHF, SMOKER, DB, SURG-APPY,HERNIA REPAIR WITH MESH, 6/5 BOWEL RESECTION WITH MESH REVISION -- DUE TO GANGREEN, right knee hardware PT RE INJECTED D/T POOR CONTRAST ENHANCEMENT PER DR AGUILAR RADIATION DOSAGE (If Supplied By Facility): CTDIvol = ( 16.30 ) mGy, DLP = ( 1023.11 ) mGycm TECHNIQUE: The examination was performed with the intravenous administration of 200ML ISOVUE 370. Post-processing of the angiographic images was performed, with multiplanar reformation and 3D reconstruction. Individualized dose optimization techniques were used for this CT. COMPARISON: None. FINDINGS: Evaluation for pulmonary embolus is limited due to the contrast bolus primarily being in the aorta rather than in the pulmonary artery. There is no central or proximal segmental pulmonary embolus. The remainder of the examination is nondiagnostic. There is no thoracic aortic aneurysm or dissection. The great vessels are patent and normal in caliber. The heart and pericardium are within normal limits. There is no thoracic lymphadenopathy. There are mild emphysematous changes noted. There are no pulmonary infiltrates or pleural effusions. There are no pulmonary nodules or masses. There is no pneumothorax. Images through the upper abdomen demonstrate fatty infiltration of the liver. There are no destructive osseous lesions. CT/CTA Chest W/WO Contrast IMPRESSION: Evaluation for pulmonary embolus limited due to poor contrast bolus. No central or proximal segmental pulmonary embolus. No thoracic aortic aneurysm or dissection. Mild emphysema. Otherwise, clear lungs. Fatty liver. Electronically Signed: Brad Balderrama, at 19:57 EDT Tel , Service support ,
[2020-03-01 14:51] LABS: CREATININE FINGERSTICK 0.6 mg/dL (0.70-1.30); EGFR FINGERSTICK > 60.0000 mL/min (>60)
== END ==
PROVIDERS: PCP Family Medicine
DX: I73.9 Peripheral vascular disease, unspecified (principal); R07.9 Chest pain, unspecified; Z86.718 Personal history of other venous thrombosis and embolism; F17.200 Nicotine dependence, unspecified, uncomplicated
CPT/HCPCS: 71275; 93923; Q9967

== ENCOUNTER → 2020-04-08 13:15 | Outpatient (CLI) | payer MEDICAID, SELFPAY ==
[2020-04-08 14:51] LABS: Cholesterol 176 mg/dL (200); High Density Lipoprotein 64 mg/dL; Triglycerides 96 mg/dL; Very Low Density Lipoprotein 19 mg/dL (5-40)
[2020-04-11 07:41] LABS: Anti-Mitochondrial AB <20.0 Units (0.0-20.0)
[2020-04-15 16:09] LABS: Ceruloplasmin 34.1 mg/dL (16.0-31.0); Comment 3 (.); HCV Quant. RNA PCR 1850000 IU/mL (.)
[2020-04-16 02:20] LABS: Copper, Serum or Plasma 151 ug/dL (72-166); HCV log 10 6.267 (.)
== END ==
PROVIDERS: Referring Provider Nurse Practitioner Family; Visit Provider Nurse Practitioner Family
DX: E11.42 Type 2 diabetes mellitus with diabetic polyneuropathy (principal); B18.2 Chronic viral hepatitis C; K74.60 Unspecified cirrhosis of liver
CPT/HCPCS: 36415; 80061; 82390; 82525; 83516; 87522; 87902

== ENCOUNTER → 2020-05-03 12:23 | Outpatient (CLI) | payer MEDICAID, SELFPAY ==
[2020-04-21 11:25] VITALS: BMI 40.9
[2020-05-03 11:27] VITALS: BMI 39.6
--- NOTE | 2020-05-03 14:54 | ECHOCS_ITS ---
Reason For Study: DYSPNEA Procedure This was a 2D Doppler, Color Flow transthoracic echocardiogram. The study was technically difficult. Contrast injection was performed. Exam performed in department. Left Ventricle Normal LV size. Left ventricular systolic function is normal. The estimated ejection fraction is 60 %. No regional wall motion abnormalities noted. Right Ventricle Normal RV size. Normal systolic function. Atria The left atrium is mildly enlarged. Normal right atrium. Mitral Valve Normal mitral valve. Tricuspid Valve Normal tricuspid valve. Aortic Valve Normal aortic valve. Trisinus/trileaflet aortic valve. Pulmonic Valve The pulmonic valve is not well visualized. Great Vessels Mildly dilated aortic root. The pulmonary artery is normal size. Normal inferior vena cava. Pericardium/Pleural No pericardial effusion. Medication 22 gauge I.V. with prn adaptor inserted into right arm. Diluted definity 3.0ml given slow IV push to enhance endocardial definition. MMode/2D Measurements & Calculations LVIDd: 5.4 cm IVSd: 0.96 cm Ao root diam: 4.0 cm LVIDs: 4.2 cm LVPWd: 0.92 cm RVDd: 4.6 cm FS: 22.0 % LAV(MOD-bp): 70.9 ml LA A4 area: 21.4 cm2 LA dimension(2D): 3.6 cm LAV(MOD-bp) Indexed: 28.0 ml/m2 LAV(MOD-sp2): 79.9 ml LAV(MOD-sp4): 62.1 ml RA A4 area: 16.8 cm2 Time Measurements MV dec time: 0.22 sec Doppler Measurements & Calculations MV E max yogi: 90.7 cm/sec Lat Peak E' Yogi: 12.8 cm/sec Med Peak E' Yogi: 8.7 cm/sec MV A max yogi: 80.0 cm/sec E/E' lat: 7.1 E/E' med: 10.4 MV E/A: 1.1 Ao V2 max: 171.0 cm/sec LV V1 max: 104.9 cm/sec Ao max P.7 mmHg LV V1 max P.4 mmHg Interpretation Summary Normal LV size. Left ventricular systolic function is normal. The estimated ejection fraction is 60 %. Mildly dilated aortic root. Contrast injection was performed. Ordering Physician: Rambo Arguello Performed By: Stephie Rivera, MCKENZIE, RVT
[2020-05-03 15:25] LABS: Absolute Lymphocyte Count 1.37 X10^3/uL (0.83-4.51); Absolute Neutrophil Count 4.6 X10^3/uL (2.0-7.7); Basophil# 0.05 X10^3/uL; Basophil% 0.7 % (0-1); Eosinophil# 0.18 X10^3/uL; Eosinophils% 2.5 % (0-5); Hematocrit 47.8 % (40-54); Hemoglobin 15.6 g/dL (13.0-16.5); Lymphocyte # 1.37 X10^3/ul (4.0); Lymphocyte % 19.3 % (19-41); Mean Corp Hgb Conc 32.6 g/dL (32-36); Mean Corpuscular Hgb 32.9 pg (27.0-32.0); Mean Corpuscular Volume 100.8 fL (80-94); Mean Platelet Vol. 10.7 fl (6.2-12.0); Monocyte# 0.87 X10^3/uL; Monocyte% 12.2 % (0-10); NRBC Flagged by Analyzer 0 % (0-5); Neutrophil # 4.62 X10^3/uL (2.7-7.7); Platelet Count 165 K/mm3 (150-450); RBC Distribution Width CV 12.7 % (11.6-14.6); RBC Distribution Width SD 48.1 fl (35.1-43.9); Red Blood Count 4.74 M/mm3 (4.6-6.2); White Blood Count 7.1 K/mm3 (4.4-11.0)
[2020-05-03 15:33] LABS: ALB/GLOB Ratio 0.7 RATIO (0.9-2.4); AST(SGOT) 131 U/L (15-37); Alanine Aminotransfer ALT/SGPT 180 U/L (16-61); Albumin, Serum 3.3 g/dL (3.2-5.0); Alkaline Phosphatase 180 U/L (45-117); Anion Gap 3 (5-15); BUN 10 mg/dL (7-18); BUN/Creat Ratio 13.3 RATIO (10-20); Calcium,Total 9.6 mg/dL (8.5-10.1); Chloride 105 mmol/L (98-107); Creatinine, Serum 0.75 mg/dL (0.70-1.30); EST Glomerular Filtration Rate 116 mL/min (>60); Est Glom Filt Rate - Afr Amer 140 mL/min (>60); Globulin 4.7 g/dL (2.2-4.2); Glucose 196 mg/dL (74-106); Potassium 4.1 mmol/L (3.5-5.1); Sodium Level 138 mmol/L (136-145)
[2020-05-03 15:42] LABS: Erythrocyte Sedimentation Rate 17 mm/hr (0-20)
[2020-05-03 16:00] LABS: CRP < 2.90 mg/L (0.0-3.0)
== END ==
PROVIDERS: PCP Internal Medicine; Visit Provider Internal Medicine Cardiovascular Disease
DX: I89.0 Lymphedema, not elsewhere classified (principal); I87.8 Other specified disorders of veins; K76.9 Liver disease, unspecified; J91.8 Pleural effusion in other conditions classified elsewhere; R06.00 Dyspnea, unspecified; R06.02 Shortness of breath
CPT/HCPCS: 36415; 80053; 85025; 85652; 86140; 93306; Q9957; A4216; C8929

== ENCOUNTER → 2020-05-10 10:53 | Outpatient (CLI) | payer MEDICAID, SELFPAY ==
[2020-05-03 11:27] VITALS: BMI 39.6
--- NOTE | 2020-05-10 10:55 | US_ITS ---
STUDY: ABDOMINAL ULTRASOUND REASON FOR EXAM: Male, 50 years old. Hepatitis C, abdominal mass. TECHNIQUE: Transabdominal ultrasound was performed with real-time and static mendoza scale imaging. TECHNICAL QUALITY: Adequate. COMPARISON: CT abdomen and pelvis 03/29/2019. FINDINGS: Liver: The liver measures 21.6 cm. There is increased echogenicity consistent with fatty infiltration. The bile ducts are within normal limits. There is hepatic color flow. The direction of portal flow is hepatopetal. There is no demonstrated mass lesion. Gallbladder: Normal distended gallbladder. The gallbladder wall measures 2.8 mm. There is a negative sonographic Thacker''s sign. There is no pericholecystic fluid. There are no gallstones. Common Bile Duct (C.B.D.): The common bile duct measures 4.1 mm. Pancreas: The pancreas is obscured by bowel gas. Spleen: Normal size of the spleen. The spleen measures 11.5 cm. Right Kidney: Normal size of the right kidney. The right kidney measures 13.9 cm There is no demonstrated renal mass or cyst. There is no right hydronephrosis. Left Kidney: Normal size of the left kidney. The left kidney measures 14.2 cm There is no demonstrated renal mass or cyst. There is no left hydronephrosis. Aorta: The aorta is obscured by bowel gas and patient body habitus. I.V.C.: The IVC is patent. There is no ascites. US/Abdomen Complete IMPRESSION: There is fibrofatty infiltration of the liver and hepatomegaly. Normal gallbladder. Exam is somewhat limited by bowel gas and patient body habitus. Electronically Signed: Grace Currie, at 10:35 EDT Tel , Service support ,
--- NOTE | 2020-05-10 11:50 | RAD_ITS ---
STUDY: X-RAY CHEST REASON FOR EXAM: Male, 50 years old. Shortness of breath and cough, history of hepatitis C TECHNIQUE: PA and lateral views of the chest. COMPARISON: 09/16/2019 FINDINGS: The lungs are clear and expanded. There is no demonstrated pleural abnormality. Normal size heart. Normal mediastinum and andie. Normal visualized pulmonary arteries. Normal visualized aortic arch and descending thoracic aorta. Normal visualized thoracic spine. Normal visualized ribs, clavicles, and shoulders. There is no demonstrated abnormality of the visualized soft tissue structures of the upper abdomen. RAD/Chest PA and Lateral IMPRESSION: No acute pulmonary process, no interval change Electronically Signed: Pravin Vidales MD at 15:09 EDT , Service support ,
== END ==
PROVIDERS: PCP Internal Medicine; Referring Provider Internal Medicine Infectious Disease; Visit Provider Internal Medicine Infectious Disease
DX: J90 Pleural effusion, not elsewhere classified (principal); B18.2 Chronic viral hepatitis C
CPT/HCPCS: 71046; 76700

== ENCOUNTER → 2020-09-10 15:53 | Outpatient (CLI) | payer MEDICAID, SELFPAY ==
[2020-05-03 11:27] VITALS: BMI 39.6
== END ==
PROVIDERS: PCP Internal Medicine
DX: B18.2 Chronic viral hepatitis C (principal)
CPT/HCPCS: 36415; 87902

== ENCOUNTER → 2020-11-01 13:33 | Outpatient (CLI) | payer MEDICAID, SELFPAY ==
[2020-05-03 11:27] VITALS: BMI 39.6
[2020-11-01 14:28] LABS: Absolute Lymphocyte Count 1.37 X10^3/uL (0.83-4.51); Basophil# 0.05 X10^3/uL; Basophil% 0.7 % (0-1); Hematocrit 46.9 % (40-54); Hemoglobin 15.5 g/dL (13.0-16.5); Lymphocyte # 1.37 X10^3/ul (4.0); Lymphocyte % 18.3 % (19-41); Mean Corpuscular Hgb 33.1 pg (27.0-32.0); Mean Corpuscular Volume 100.2 fL (80-94); Mean Platelet Vol. 10.8 fl (6.2-12.0); Monocyte# 0.74 X10^3/uL; Monocyte% 9.9 % (0-10); NRBC Flagged by Analyzer 0 % (0-5); Neutrophil # 5.02 X10^3/uL (2.7-7.7); Neutrophil % 66.8 % (47-70); Platelet Count 168 K/mm3 (150-450); RBC Distribution Width CV 12.5 % (11.6-14.6); RBC Distribution Width SD 46.1 fl (35.1-43.9); Red Blood Count 4.68 M/mm3 (4.6-6.2); White Blood Count 7.5 K/mm3 (4.4-11.0)
[2020-11-01 14:43] LABS: International Normalized Ratio 1.1; Prothrombin Time (Protime)PT. 13.8 SECONDS (11.7-14.9)
[2020-11-01 14:54] LABS: AST(SGOT) 38 U/L (15-37); Alanine Aminotransfer ALT/SGPT 54 U/L (16-61); Albumin, Serum 3.5 g/dL (3.2-5.0); Alkaline Phosphatase 164 U/L (45-117); Bilirubin, Direct 0.19 mg/dL (0.00-0.30); Globulin 4.7 g/dL (2.2-4.2); Protein, Total 8.2 g/dL (6.4-8.2)
== END ==
PROVIDERS: PCP Internal Medicine; Referring Provider Internal Medicine Infectious Disease; Visit Provider Internal Medicine Infectious Disease
DX: B18.2 Chronic viral hepatitis C (principal)
CPT/HCPCS: 36415; 80076; 85025; 85610; 85730

== ENCOUNTER → 2020-11-08 13:59 | Outpatient (CLI) | payer MEDICAID, SELFPAY ==
[2020-05-03 11:27] VITALS: BMI 39.6
[2020-11-08 15:14] LABS: Absolute Neutrophil Count 5.6 X10^3/uL (2.0-7.7); Basophil# 0.04 X10^3/uL; Basophil% 0.5 % (0-1); Eosinophil# 0.27 X10^3/uL; Eosinophils% 3.2 % (0-5); Hematocrit 47.9 % (40-54); Hemoglobin 15.4 g/dL (13.0-16.5); Lymphocyte % 19.2 % (19-41); Mean Corp Hgb Conc 32.2 g/dL (32-36); Mean Corpuscular Hgb 32.3 pg (27.0-32.0); Mean Corpuscular Volume 100.4 fL (80-94); Mean Platelet Vol. 10.9 fl (6.2-12.0); Monocyte# 0.76 X10^3/uL; Monocyte% 9.1 % (0-10); NRBC Flagged by Analyzer 0 % (0-5); Neutrophil # 5.61 X10^3/uL (2.7-7.7); Neutrophil % 67.5 % (47-70); Platelet Count 140 K/mm3 (150-450); RBC Distribution Width CV 12.3 % (11.6-14.6); RBC Distribution Width SD 46.6 fl (35.1-43.9); Red Blood Count 4.77 M/mm3 (4.6-6.2); White Blood Count 8.3 K/mm3 (4.4-11.0)
[2020-11-08 15:56] LABS: ALB/GLOB Ratio 0.7 RATIO (0.9-2.4); AST(SGOT) 36 U/L (15-37); Alanine Aminotransfer ALT/SGPT 52 U/L (16-61); Albumin, Serum 3.3 g/dL (3.2-5.0); Alkaline Phosphatase 172 U/L (45-117); Anion Gap 3 (5-15); BUN 12 mg/dL (7-18); BUN/Creat Ratio 14.5 RATIO (10-20); Calcium,Total 9.4 mg/dL (8.5-10.1); Chloride 98 mmol/L (98-107); Cholesterol 203 mg/dL (200); Creatinine, Serum 0.83 mg/dL (0.70-1.30); EST Glomerular Filtration Rate 104 mL/min (>60); Est Glom Filt Rate - Afr Amer 126 mL/min (>60); Globulin 4.7 g/dL (2.2-4.2); Glucose 366 mg/dL (74-106); High Density Lipoprotein 71 mg/dL; Magnesium 2.1 mg/dL (1.6-2.6); Sodium Level 133 mmol/L (136-145); T4 Free Direct 1.11 ng/dL (0.76-1.46); Thyroid Stim Hormone (TSH) 1.44 uIU/mL (0.358-3.74); Triglycerides 201 mg/dL; Very Low Density Lipoprotein 40 mg/dL (5-40)
== END ==
PROVIDERS: PCP Internal Medicine
DX: R60.9 Edema, unspecified (principal)
CPT/HCPCS: 36415; 80053; 80061; 83735; 83880; 84439; 84443; 85025

== ENCOUNTER → 2020-11-09 13:32 | Outpatient (CLI) | payer MEDICAID, SELFPAY ==
[2020-05-03 11:27] VITALS: BMI 39.6
--- NOTE | 2020-11-09 13:37 | EKG12_ITS ---
Test Reason : ROUTINE Blood Pressure : / mmHG Vent. Rate : 102 BPM Atrial Rate : 102 BPM P-R Int : 144 ms QRS Dur : 092 ms QT Int : 352 ms P-R-T Axes : 044 006 005 degrees QTc Int : 458 ms Sinus tachycardia Nonspecific T wave abnormality Confirmed by LEI ARRIAZA, ANTONIO ([id number]), health editor KALEY MENEZES ([id number]) on 11/10/2020 11:30:19 AM Referred By: [facility] Confirmed By:ANTONIO ODOM MD
--- NOTE | 2020-11-09 13:53 | RAD_ITS ---
STUDY: X-RAY CHEST REASON FOR EXAM: Male, 50 years old. Chest pain, history of smoking TECHNIQUE: PA and lateral views of the chest. COMPARISON: 05/10/2020 FINDINGS: There are interstitial changes of the lungs. There is no demonstrated pleural abnormality. Normal size heart. Normal mediastinum and andie. Normal visualized pulmonary arteries. Normal visualized aortic arch and descending thoracic aorta. Normal visualized thoracic spine. Normal visualized ribs, clavicles, and shoulders. There is no demonstrated abnormality of the visualized soft tissue structures of the upper abdomen. RAD/Chest PA and Lateral IMPRESSION: Chronic interstitial changes, no superimposed acute pulmonary process Electronically Signed: Pravin Vidales MD at 16:45 EDT , Service support ,
== END ==
PROVIDERS: PCP Internal Medicine
DX: I50.22 Chronic systolic (congestive) heart failure (principal); F17.200 Nicotine dependence, unspecified, uncomplicated
CPT/HCPCS: 71046; 93005

== ENCOUNTER → 2020-12-29 15:52 | Outpatient (CLI) | payer MEDICAID, SELFPAY ==
[2020-05-03 11:27] VITALS: BMI 39.6
[2020-12-29 17:57] LABS: Vitamin B12 758 pg/mL (211-911)
[2021-01-01 12:07] LABS: HCV Quant. RNA PCR HCV Not Detected IU/mL (.)
== END ==
DX: E11.42 Type 2 diabetes mellitus with diabetic polyneuropathy (principal); B18.2 Chronic viral hepatitis C
CPT/HCPCS: 36415; 82607; 82746; 83735; 87522

== ENCOUNTER 2021-04-14 15:30 | Outpatient (RCR) | payer MEDICAID, SELFPAY ==
[2020-05-03 11:27] VITALS: BMI 39.6
--- NOTE | 2021-02-17 14:54 | HP.OTEVAL ---
Patient's Visit Information ANATOLY MCGRAW is a 50 year old M, referred to Occupational Therapy by BILLIE Babin, with a diagnosis of LE lymphedema. Date of Evaluation: 02/17/21 Occupational Therapist: Maribel Hernandez, LEFTYR/Alfredo, CHT - Subjective This 50 year old male was seen for OT eval with dx. of LE lymphedema. Pt was in good health until he woke up one day and couldn't breath and went to hospital- Pt states he was dx with CHF about two years. pt is on dietetic for swelling in LE . pt was also dx with DMII and on medication. pt states he was wearing compression socks- states they are 20-30mmHg and Medi brand. pt sates he was told not to wear his compression socks by one dr and then told by another dr. he need to use them. pt states he sleeps in a recliner. pt states in the morning his legs are smaller in the morning. pt states he would like to know what more he can do to mtg. his leg swelling. - Pain bilateral LE 4 Pain Intensity Range: 3, 8 - Lymphedema (Circumferential Measure) Mid-foot: right 30.5 left 31cm Ankle: right 37.5 left 38cm Lower calf: right 38 left 37 Largest calf: right 47cm left 49cm Below knee: right 44cm left 40cm - Lower Limb Functional Index Lower Extremity Functional Score: 19 - Goals Demonstrate a 20% reduction in edema by d/c: Yes Demonstrate adequate knowledge of self-bangaging by 1st week: Yes Demonstrate adequate knowledge of self-massage by 2nd week: Yes Demonstrate adequate knowledge skin care/prec by 2nd week: Yes Demonstrate adequate knowledge therapeutic exercises by d/c: Yes Select approp compression garment w/donning/care/wear by d/c: Yes Voice need to replace compression garment every 4-6mo by dc: Yes - Rehabilitation General Assessment: pt demo with edema in BLE with skin thickness. Due to fluid in LE pt has increase difficulty with his mobility and is unable to perform IADls or other home mtg. tasks. pt would benefit from skilled OT service 1-2x week for 3 weeks to ed. pt on mtg of LE lymphedema. Today Rehabilitation Potential: Questionable - Anticipated Interventions Education re Diagnosis, Manual Lymph Drainage, Education re Life-long lymphedema Management, Education re Self-Bandaging Techniques, Education re Skin Care and Precautions, Education re Self Massage Techniques, Education re Correct Donning Tech,Care&Wearing Sched Comp Garments, Home Program - Visit Plan Frequency: 1x/Week Duration: 3 Weeks General Plan: Therapy will ed, pt on skin care, lymph stim ex. and ed, pt on self manual lymph drainage. Therapist will ed. pt on need of compression garments 20-30mmHg along with compression alternatives like Velcro closures devices. TEXT: Thank you for the opportunity to evaluate your patient. For Medicare and Medicare HMO plans, please review the plan of care and approve it. It will need to be FAXED BACK to us at [phone] for Medicare purposes. Please let me know if there are questions or concerns regarding this plan of care. Physician Signature: Date:
--- NOTE | 2021-08-15 14:45 | HP.OT.NRP ---
ANATOLY MCGRAW was seen in my office for initial evaluation on 02/17/21. The following Plan of Care was established for this patient: Initial Frequency: 1x/Week Initial Duration: 3 Weeks Plan: therapist recd pt go to [facility] or for pain and redness Anticipated Interventions: Education re Diagnosis, Manual Lymph Drainage, Education re Life-long lymphedema Management, Education re Self-Bandaging Techniques, Education re Skin Care and Precautions, Education re Self Massage Techniques, Education re Correct Donning Tech,Care&Wearing Sched Comp Garments, Home Program This patient was last seen in our office 04/14/21. Pertinent comments regarding their Occupational therapy will appear below: pt was seen for 1 follow up visit- pt has not scheduled further apts. due to time laps in service pt d/c. At this point I will be discontinuing this patient from occupational therapy. I would be happy to see this patient again in the future if found appropriate by the physician. Thank you! Maribel Hernandez, OTR/L, CHT
== END 2021-04-14 19:00 | disposition home or self-care (01) ==
LOC: OT 15:30
PROVIDERS: Referring Provider Nurse Practitioner Adult Health; Visit Provider Nurse Practitioner Adult Health
DX: I89.0 Lymphedema, not elsewhere classified (principal); I73.9 Peripheral vascular disease, unspecified; I87.8 Other specified disorders of veins
CPT/HCPCS: 97166; 97530

== ENCOUNTER 2021-05-27 17:11 | Outpatient (CLI) | payer MEDICAID, SELFPAY ==
[2021-05-27] MEDS: 0.9% Saline Lock 10 ML Syringe IV (17:24)
[2021-05-27 17:29] VITALS: BP 123/75; PULSE 83; RESP 16; TEMP 36.8; O2SAT 95; BMI 29.0
[2021-05-27 18:30] VITALS: BP 131/79; PULSE 77; RESP 16; TEMP 36.9; O2SAT 96
[2021-05-27 19:17] VITALS: BP 132/75; PULSE 77; RESP 16; TEMP 36.9; O2SAT 97
== END 2021-05-27 19:36 | disposition home or self-care (01) ==
LOC: MS3OUT 17:12 → MS3 17:12
PROVIDERS: PCP Nurse Practitioner Adult Health; Referring Provider Nurse Practitioner Acute Care; Visit Provider Nurse Practitioner Acute Care
DX: Z23 Encounter for immunization (principal); U07.1 COVID-19
CPT/HCPCS: J7050; M0245; Q0245; A4216

== ENCOUNTER 2021-07-26 15:50 | Inpatient (IN) | payer MEDICAID, SELFPAY ==
[2021-07-26] VITALS (11 sets, daily range): BP systolic 106–133; BP diastolic 67–105; PULSE 99–110; RESP 16–20; TEMP 36.8–37.1; O2SAT 80–100; BMI 35.6; BMI 33.6
--- NOTE | 2021-07-26 16:37 | ED.RN ---
THIS NURSE TOLD BOTH DR THAT THE PT IS YELLING OUT IN PAIN. THE SIGNIFICANT OTHER IS ALSO SCREAMING AND YELLING AT STAFF. PT YELLING I DON'T WANT TO LOSE MY LEG
--- NOTE | 2021-07-26 16:39 | ED.RN ---
patient brought back from triage via triage cot, patient screaming all the way back to ED room 8. Pt assisted into the bed, still screaming. IV started. ED physicians notified.
--- NOTE | 2021-07-26 16:50 | ED.RN ---
pt calling out in pain, ED physicians notified. Emotional support provided.
--- NOTE | 2021-07-26 16:55 | RAD_ITS ---
STUDY: X-RAY CHEST REASON FOR EXAM: Male, 51 years old. CHEST PAIN dyspnea TECHNIQUE: XR Chest 1 View COMPARISON: 11.09.20 FINDINGS: There is no demonstrated pleural abnormality. Normal size heart. Normal mediastinum and andie. Normal visualized pulmonary arteries. Normal visualized aortic arch and descending thoracic aorta. There are diffuse degenerative changes of the visualized thoracic spine. There is degenerative osteoarthritis of the bilateral shoulders. There is no demonstrated abnormality of the visualized soft tissue structures of the upper abdomen. RAD/Chest 1 View (Portable) IMPRESSION: There are no acute findings. Electronically Signed: Jeffery Bonds MD at 17:38 EST , Service support ,
--- NOTE | 2021-07-26 16:57 | EDS_ITS ---
HPI History of Present Illness Chief Complaint: Edema Detail of Chief Complaint: Pain and swelling to right leg that started today Informant: patient Narrative Narrative: Patient has history of of lymphedema and he is noticed increased swelling and worsening pain to the right leg today. Patient also complaining of some chest discomfort and some shortness of breath. thinks that patient also may have a blood infection because he has bad teeth and an abscess. Patient also is been complaining of urinary symptoms of dysuria and frequency. Patient is a diabetic. Patient has prior history of DVT but not currently anticoagulated. He denies fever or cough. Patient rates his pain 10 out of 10. [facility] Medical History (Updated 07/26/21 @ 19:[address] Yuridia Adame DO) Chronic venous stasis Emphysema, unspecified Hepatitis C History of deep venous thrombosis Lymphedema Nicotine dependence Type 2 diabetes mellitus without complication Home Medications cholecalciferol (vitamin D3) 1,250 mcg (50,000 unit) tablet 1,250 mcg PO QWEEK 04/09/20 [History Last Taken Unknown] furosemide 20 mg tablet 40 mg PO DAILY tab 04/21/20 [History Last Taken Unknown] albuterol sulfate 1 - 2 mcg INHALATION Q4H PRN PRN 05/27/21 [History Last Taken Unknown] insulin detemir U-100 [Levemir FlexTouch U-100 Insuln] 34 unit SUBCUT QHS 05/27/21 [History Last Taken Unknown] metformin 1,000 mg PO BID 05/27/21 [History Last Taken Unknown] Allergy/AdvReac Type Severity Reaction Status Date / Time No Known Allergies Allergy Verified 07/26/21 15:58 Family History Brother Diabetes Sister Cirrhosis Surgical History History of appendectomy History of arthroscopic knee surgery History of bowel resection History of facial surgery History of inguinal hernia repair History of tibial fracture Social History (Updated 05/03/20 @ 12:[address] Romina Vyas MD) Smoking Status: Current every day smoker tobacco type: cigarettes alcohol intake: never substance use type: does not use caffeine: Yes Type: coffee Number of servings: 1 ROS ROS ED Constitutional Constitutional ED: Reports systems reviewed and no addt'l complaints, except as documented; Denies body ache(s), change in weight or chills Eyes Eyes: Denies acute decrease in peripheral vision, change in vision, double vision or loss of vision ENT ENT ED: Reports none; Denies ear pain, lip swelling, loss taste/smell, neck pain, otalgia or sore throat Cardiovascular Cardiovascular: Reports none and chest pain; Denies abdominal pain, chest pain with activity, leg edema, lightheadedness, palpitations, rapid heart rate or syncope Respiratory/Chest Respiratory/Chest: Reports none and dyspnea; Denies change in mental status, dry cough, hemoptysis, shortness of breath at rest or shortness of breath with exertion Gastrointestinal Gastrointestinal: Reports none; Denies abdominal pain, change in stool character, diarrhea, hematemesis, hematochezia, melena, rectal bleeding or vomiting Genitourinary Genitourinary ED: Reports none; Denies abdominal discomfort, anuria, dysuria, genital pain or polyuria Musculoskeletal Musculoskeletal: Reports none and other Details: Right leg pain ; Denies arthralgias, back pain, difficulty walking, extremity pain, muscle weakness or myalgias Integumentary Reports none; Denies abscess or rash Neurologic Neurologic: Reports none; Denies abnormal gait, confusion, focal weakness, frequent falls, headache(s), loss of vision, numbness, paresthesias, radicular pain, vertigo or weakness Psychiatric Psychiatric: Reports systems reviewed and no addt'l complaints, except as documented and none; Denies behavioral changes, confusion, difficulty concentrating, hallucinations, suicidal ideation, tactile hallucinations or visual hallucinations Endocrine Endocrinology: Denies none, cold intolerance, excessive sweating, fatigue or heat intolerance Hematologic/Lymphatic Hematologic/Lymphatic: Reports none; Denies anemia, easy bleeding or easy bruising Allergic/Immunologic Allergic/Immunologic ED: Denies as per HPI, none, lip swelling, mouth swelling, throat swelling, tongue swelling or hives EXAM Physical Exam Const Vital Signs: 07/26/21 15:50 07/26/21 17:07 07/26/21 18:00 Temperature 98.3 F Temperature Source Temporal Pulse Rate 110 H 100 102 H Respiratory Rate 20 H 16 20 H Blood Pressure 118/105 H 129/77 H Blood Pressure Mean 109 94 Pulse Ox 80 98 100 Oxygen Delivery Method Room Air Nasal Cannula Nasal Cannula Oxygen Flow Rate (L/min) 4 4 07/26/21 19:10 Temperature 98.3 F Temperature Source Temporal Pulse Rate 108 H Respiratory Rate 18 Blood Pressure 112/67 Blood Pressure Mean 82 Pulse Ox 100 Oxygen Delivery Method Nasal Cannula Oxygen Flow Rate (L/min) 5 Positive well nourished and well developed General Appearance ED: well developed and NAD HEENT Reports TM's clear and moist mucous membranes normocephalic and atraumatic; Negative for trauma or tenderness Tympanic Membrane ED: Yes TM's clear Eyes PERRL and EOMs intact bilaterally General Eye ED: Negative for pale conjunctiva or scleral icterus Neck no lymphadenopathy, supple and no JVD General: Negative for tenderness Chest Wall inspection of chest normal and palpation of chest normal Chest: Negative for tenderness Resp normal respiratory effort and clear to auscultation bilaterally Effort and Inspection: Negative for respiratory distress or pain with movement Auscultation: Negative for rhonchi, wheezes or diminished lung sounds Cardio regular rate, regular rhythm, S1 normal heart sound, S2 normal heart sound and no murmurs Peripheral Pulses: pulses 2+ throughout GI normal to inspection, nondistended, normoactive bowel sounds, soft to palpation, non-tender, non-distended and no masses Back/Spine no CVA tenderness and no thoracic nor lumbar tenderness Extremity Extremity Narrative: Patient has diffuse tenderness palpation of the right lower extremity to the dorsum of the foot and anterior tibial region. There is no significant erythema or cellulitic changes noted. Patient has significant lymphedema. He does have palpable dorsal pedal and posterior tibial pulses in the foot is warm to touch. He moves the extremity without difficulty. Normal cap refill. General Extremety ED: Negative for edema General Extremity: Negative for edema Neuro oriented x3, CN's II-XII intact bilaterally, no sensory deficits noted and gait normal Sensorium / Orientation: awake, alert, oriented to person, oriented to place and oriented to time Motor Exam: strength 5/5 throughout and strength abnormal Psych mental status grossly normal Skin no rashes or lesions noted and no wounds MDM MDM MDM Narrative Medical decision making narrative: IV line established on arrival. Patient was medicated with Dilaudid and Zofran. Patient started on Zosyn and vancomycin IV. Patient was given subcu insulin 12 units for his elevated glucose. CT scan was negative for PE but did show faint bilateral infiltrates. Patient has been coughing for about 3 days. Patient tells me that he had COVID-19 about 2 months ago. The etiology of patient's pain is unclear although he does appear to be developing a cellulitis of that leg. Given his hypoxemia as well as hyperglycemia and cellulitis he will be admitted for pain control as well as IV antibiotics and oxygen. Lab Data Attestation: I reviewed the patient's lab results. Labs: Laboratory Results - last 24 hr 07/26/21 07/26/21 07/26/21 16:24 17:05 17:05 WBC 12.4 H RBC 4.75 Hgb 15.5 Hct 45.6 MCV 96.0 H MCH 32.6 H MCHC 34.0 RDW Std Deviation 44.7 H RDW Coeff of Tg 12.5 Plt Count 162 MPV 11.0 Immature Gran % (Auto) 0.200 Neut % (Auto) 89.1 H Lymph % (Auto) 5.9 L [place] % (Auto) 4.0 Eos % (Auto) 0.5 Baso % (Auto) 0.3 Absolute Neuts (auto) 11.1 H Absolute Lymphs (auto) 0.73 L Nucleated RBC % 0 Sodium 131 L Potassium 4.0 Chloride 91 L Carbon Dioxide 30.0 Anion Gap 10 BUN 12 Creatinine 0.81 Estim Creat Clear Calc 119.19 Est GFR (MDRD) Af Amer 128 Est GFR (MDRD) Non-Af 106 BUN/Creatinine Ratio 14.8 Glucose 459 H* Lactic Acid 2.0 Calcium 9.5 Total Bilirubin 1.10 H AST 128 H ALT 238 H Alkaline Phosphatase 260 H Total Protein 8.3 H Albumin 3.5 Globulin 4.8 H Albumin/Globulin Ratio 0.7 L Radiography Diagnostic Testing: Clinical Impression(s) from Imaging Studies Chest X-Ray 07/26/21 16:55 IMPRESSION: There are no acute findings. Electronically Signed: Jeffery Bonds MD at 17:38 EST , Service support , Venous Duplex 07/26/21 16:59 IMPRESSION: There is no demonstrated deep venous thrombosis. Please see technologist report in PACS for further details for their impression/ worksheet/ details/ etc. Electronically Signed: Jeffery Bonds MD at 18:14 EST , Service support , Chest CTA 07/26/21 18:46 IMPRESSION: 1. No demonstrated pulmonary embolism or arterial dissection. 2. There is bilateral minimal infiltrates suggesting an early pneumonia. Electronically Signed: Jeffery Bonds MD at 19:41 EST , Service support , Discharge Plan Triage Chief Complaint: Edema ED Provider: Yuridia Adame Dx/Rx/DC Orders Clinical Impression: Cellulitis of leg, right, Acute hyperglycemia, Hypoxemia Prescriptions: No Action furosemide 20 mg tablet 40 mg PO DAILY RF: 0 cholecalciferol (vitamin D3) 1,250 mcg (50,000 unit) tablet 1,250 mcg PO QWEEK RF: 0 metformin 1,000 mg tablet 1,000 mg PO BID RF: 0 albuterol sulfate 90 mcg/actuation HFA aerosol inhaler 1 - 2 mcg INHALATION Q4H PRN PRN (Reason: Shortness Of Breath) RF: 0 Levemir FlexTouch U-100 Insuln 100 unit/mL (3 mL) insulin pen 34 unit SUBCUT QHS RF: 0 Primary Care Provider: Wanda Mallory Referrals: Wanda Mallory, [facility] [Primary Care Provider] - Disposition Disposition: [facility]
--- NOTE | 2021-07-26 16:59 | US_ITS ---
STUDY: VENOUS DOPPLER ULTRASOUND - RIGHT LOWER EXTREMITY REASON FOR EXAM: Male, 51 years old. LEG PAIN AND SWELLING RT LEG PAIN AND SWELLING TECHNIQUE: Ultrasound evaluation of the deep vein system to include magaña-scale imaging and compression was performed. Magaña-scale imaging and Doppler sonographic evaluation, including duplex spectral analysis and qualitative color flow sonography, was performed. COMPARISON: None. FINDINGS: Common Femoral Vein: Normal compression, spontaneity and augmentation. Normal color Doppler. Common Femoral Vein/Greater Saphenous Junction: Normal compression, spontaneity and augmentation. Normal color Doppler. Superficial Femoral Proximal: Normal compression, spontaneity and augmentation. Normal color Doppler. Superficial Femoral Middle: Normal compression, spontaneity and augmentation. Normal color Doppler. Superficial Femoral Distal: Normal compression, spontaneity and augmentation. Normal color Doppler. Popliteal Vein: Normal compression, spontaneity and augmentation. Normal color Doppler. Posterior Tibial Vein: Normal compression, spontaneity and augmentation. Normal color Doppler. Peroneal Vein: Normal compression, spontaneity and augmentation. Normal color Doppler. There is no demonstrated deep venous thrombosis. US/Venous Duplex Imag/Limited/Uni IMPRESSION: There is no demonstrated deep venous thrombosis. Please see technologist report in PACS for further details for their impression/ worksheet/ details/ etc. Electronically Signed: Jeffery Bonds MD at 18:14 EST , Service support ,
[2021-07-26] MEDS: 0.9% Normal Saline 1,000 ML 150 ML IV (17:03)
[2021-07-26] MEDS: Ondansetron 4 MG/2 ML Vial IV (17:05)
[2021-07-26] MEDS: HYDROmorphone 1 MG/ML Syringe IV ×2 (17:06→19:42)
[2021-07-26 17:13] LABS: Absolute Lymphocyte Count 0.73 X10^3/uL (0.83-4.51); Absolute Neutrophil Count 11.1 X10^3/uL (2.0-7.7); Basophil# 0.04 X10^3/uL; Basophil% 0.3 % (0-1); Eosinophil# 0.06 X10^3/uL; Eosinophils% 0.5 % (0-5); Hematocrit 45.6 % (40-54); Hemoglobin 15.5 g/dL (13.0-16.5); Lymphocyte # 0.73 X10^3/ul (0.83-4.51); Lymphocyte % 5.9 % (19-41); Mean Corpuscular Hgb 32.6 pg (27.0-32.0); NRBC Flagged by Analyzer 0 % (0-5); Neutrophil # 11.05 X10^3/uL (2.7-7.7); Neutrophil % 89.1 % (47-70); Platelet Count 162 K/mm3 (150-450); RBC Distribution Width CV 12.5 % (11.6-14.6); RBC Distribution Width SD 44.7 fl (35.1-43.9); Red Blood Count 4.75 M/mm3 (4.6-6.2); White Blood Count 12.4 K/mm3 (4.4-11.0)
[2021-07-26 17:46] LABS: ALB/GLOB Ratio 0.7 RATIO (0.9-2.4); AST(SGOT) 128 U/L (15-37); Alanine Aminotransfer ALT/SGPT 238 U/L (16-61); Albumin, Serum 3.5 g/dL (3.2-5.0); Alkaline Phosphatase 260 U/L (45-117); Anion Gap 10 (5-15); BUN 12 mg/dL (7-18); BUN/Creat Ratio 14.8 RATIO (10-20); Calcium,Total 9.5 mg/dL (8.5-10.1); Chloride 91 mmol/L (98-107); Creatinine, Serum 0.81 mg/dL (0.70-1.30); EST Glomerular Filtration Rate 106 mL/min (>60); Est Glom Filt Rate - Afr Amer 128 mL/min (>60); Estimated Creatinine Clearance 119.19 ml/min; Globulin 4.8 g/dL (2.2-4.2); Glucose 459 mg/dL (74-106); Protein, Total 8.3 g/dL (6.4-8.2); Sodium Level 131 mmol/L (136-145)
--- NOTE | 2021-07-26 18:46 | CT_ITS ---
EXAM: CT ANGIOGRAPHY CHEST WITHOUT AND WITH INTRAVENOUS CONTRAST CLINICAL INDICATION: hypoxia Technologist Notes RT LEG SWELLING, CP, DM TECHNIQUE: Helically acquired angiography images were obtained of the chest without and with intravenous contrast. This CT exam was performed using one or more of the following dose reduction techniques: automated exposure control, adjustment of the mA and/or kV according to patient size, and/or use of iterative reconstruction technique. This report was created using Object [employer] report generation technology. MIP reconstructed images were created and reviewed. CONTRAST: IV 100mL [id number] COMPARISON: None. FINDINGS: PULMONARY ARTERIES: No demonstrated pulmonary embolism or arterial dissection. AORTA: Unremarkable. Normal in caliber. No evidence of dissection. GREAT VESSELS OF AORTIC ARCH: Unremarkable. Normal in caliber. No evidence of dissection. LUNGS AND PLEURAL SPACES: There is bilateral minimal infiltrates suggesting an early pneumonia. No mass. No pleural effusion or thickening. HEART: Unremarkable. Heart size is normal. No pericardial effusion. No signs of right heart strain, ratio of right ventricle to left ventricle measures less than 1. MEDIASTINUM: Unremarkable. No mediastinal or hilar adenopathy. Esophagus is unremarkable. No hiatal hernia. THYROID: Unremarkable. No thyroid lesions. BONES/JOINTS: There are degenerative findings of the thoracic spine. No suspicious lytic or blastic abnormality. CT/CTA Chest W/WO Contrast IMPRESSION: 1. No demonstrated pulmonary embolism or arterial dissection. 2. There is bilateral minimal infiltrates suggesting an early pneumonia. Electronically Signed: Jeffery Bonds MD at 19:41 EST , Service support ,
[2021-07-26] MEDS: Insulin Lispro 100 UNIT/ML INSULN.PEN 12 UNIT SC (19:47)
[2021-07-26 19:56] LABS: Bedside Glucose 330 mg/dL (70-110)
--- NOTE | 2021-07-26 20:18 | NURSING ---
Patient states he still cannot pee. Have prompted to pee 3 times since 1899. He declines a straight cath.
--- NOTE | 2021-07-26 20:23 | PCM.HP.STD ---
HPI - General General Date of Admission: 07/26/21 Date of Service: 07/26/21 Chief Complaint: Right lower extremity pain HPI Narrative ANATOLY MCGRAW, is a 51 M who presented to the emergency department was [facility] on 07/26/2021 with a chief complaint of right lower extremity pain. He reports that it started yesterday. He states the pain is mostly anterior in the right lower extremity and is associated with increased swelling and redness. He does indicate he has been treated twice in the past 12 months for cellulitis but never had a problem previous to this. He states he has a history of chronic lymphedema in bilateral lower extremities but the right leg is more swollen and red compared to his baseline. He is somewhat sleepy during my evaluation from pain medications given but is able to answer questions appropriately although he does fall asleep during our conversation. He indicates he has had chills but no documented fever, some nausea and vomiting with no vomiting in the last 24 hours, cough productive of sputum with color change, mild shortness of breath, and right lower extremity pain as noted above. His vital signs in the emergency department showed that he is afebrile but mildly tachycardic with heart rates in the low 100s, his blood pressure were normal, he had mild tachypnea with respiratory rates from 16-20, his sats on room air were 80% but improved to 98 to 100% on 4 to 5 L and this was able to be weaned to 2 L prior to admission with oxygen saturations at 97 to 98%. His CBC shows a mildly elevated white count at 12.4 with a left shift but is otherwise unremarkable. His CMP shows mild hyponatremia natremia with a sodium of 131 however when corrected for glucose it corrects to 136.7, which is normal. His blood glucose level in the emergency department was 459. His LFTs were elevated with an ALT of 238/AST of 128/bilirubin of 1.10. He does have a history of hepatitis C for which she was treated and the disease process was eradicated with the most recent hep C RNA quant at negative. These are new elevations for him as he had normals prior to this. Given his hypoxia a CTA of his chest was performed and was negative for acute PE. It does show some bilateral patchy infiltrates which may be residual from his recent COVID-19 infection. With his right lower extremity swelling a venous duplex was performed and negative for DVT. In the emergency department he was treated with ampicillin and vancomycin and given IV fluids. [facility] Medical History Chronic venous stasis Emphysema, unspecified Hepatitis C History of deep venous thrombosis Hyponatremia Lymphedema Nicotine dependence Type 2 diabetes mellitus without complication Home Medications cholecalciferol (vitamin D3) 1,250 mcg (50,000 unit) tablet 1,250 mcg PO QWEEK 04/09/20 [History Last Taken Unknown] furosemide 20 mg tablet 40 mg PO DAILY tab 04/21/20 [History Last Taken Unknown] albuterol sulfate 1 - 2 mcg INHALATION Q4H PRN PRN 05/27/21 [History Last Taken Unknown] insulin detemir U-100 [Levemir FlexTouch U-100 Insuln] 34 unit SUBCUT QHS 05/27/21 [History Last Taken Unknown] metformin 1,000 mg PO BID 05/27/21 [History Last Taken Unknown] Allergy/AdvReac Type Severity Reaction Status Date / Time No Known Allergies Allergy Verified 07/26/21 15:58 Family History Brother Diabetes Sister Cirrhosis Surgical History History of appendectomy History of arthroscopic knee surgery History of bowel resection History of facial surgery History of inguinal hernia repair History of tibial fracture Social History Smoking Status: Current every day smoker tobacco type: cigarettes alcohol intake: never substance use type: does not use caffeine: Yes Type: coffee Number of servings: 1 ROS Constitutional Constitutional: Reports chills, fatigue, malaise and weakness; Denies anorexia, change in weight, fever(s), night sweats or other Eyes Eyes: Denies blurry vision, change in eye color, change in vision, discharge from eye(s), double vision, erythema, eye pain, loss of vision or other ENT HEENT: Denies abnormal hearing, dysphagia, ear pain, epistaxis, headache(s), hearing loss, nasal congestion, nasal discharge, post nasal drip, sinus pressure, sore throat or other Cardiovascular Cardiovascular: Reports dyspnea on exertion and edema; Denies chest pain, claudication, lightheadedness, orthopnea, palpitations, paroxysmal nocturnal dyspnea, rapid heart rate, syncope or other Respiratory/Chest Respiratory/Chest: Reports cough, dyspnea, excessive phlegm production, productive cough and shortness of breath with exertion Gastrointestinal Gastrointestinal: Reports nausea; Denies abdominal pain, coffee ground emesis, constipation, diarrhea, dyspepsia, hematemesis, hematochezia, loose stools, melena, vomiting or other Genitourinary Genitourinary: Denies burning urination, difficulty urinating, dysuria, hematuria, nocturia, urinary frequency, urinary hesitancy, urinary incontinence, urinary urgency or other Musculoskeletal Musculoskeletal: Reports other Details: Right distal lower extremity leg pain Psychiatric Psychiatric: Denies anxiety, depression, homicidal ideation, suicidal ideation or other Endocrine Endocrinology: Denies change in body appearance, cold intolerance, excessive sweating, heat intolerance, polydipsia, polyuria or other Hematologic/Lymphatic Hematologic/Lymphatic: Denies anemia, easy bleeding, easy bruising, lymphadenopathy or other Allergic/Immunologic Allergic/Immunologic: Denies rhinitis, hives, eczemia, asthma or other Vital Signs Vital Signs Vital Signs: 07/26/21 15:50 07/26/21 17:07 07/26/21 18:00 Temperature 98.3 F Temperature Source Temporal Pulse Rate 110 H 100 102 H Respiratory Rate 20 H 16 20 H Blood Pressure 118/105 H 129/77 H Blood Pressure Mean 109 94 Pulse Ox 80 98 100 Oxygen Delivery Method Room Air Nasal Cannula Nasal Cannula Oxygen Flow Rate (L/min) 4 4 07/26/21 19:10 07/26/21 19:50 07/26/21 20:15 Temperature 98.3 F 98.8 F Temperature Source Temporal Temporal Pulse Rate 108 H 105 H 108 H Respiratory Rate 18 16 20 H Blood Pressure 112/67 112/67 133/81 H Blood Pressure Mean 82 82 98 Pulse Ox 100 97 98 Oxygen Delivery Method Nasal Cannula Nasal Cannula Nasal Cannula Oxygen Flow Rate (L/min) 5 2 2 07/26/21 20:16 Temperature 98.8 F Temperature Source Temporal Pulse Rate 108 H Respiratory Rate 20 H Blood Pressure 133/81 H Blood Pressure Mean 98 Pulse Ox 98 Oxygen Delivery Method Nasal Cannula Oxygen Flow Rate (L/min) 2 Weight Weight: 122.47 kg Body Mass Index (BMI) 35.6 Physical Exam Const alert, oriented x3, no apparent distress and well nourished Constitutional Narrative: Obese, upper middle-aged white male lying in bed, appears older than stated age, sleeping but awakens easily drifting back to sleep easily as well, nontoxic but appears uncomfortable with regards to right lower extremity pain General Appearance: cooperative HEENT normocephalic, head/scalp atraumatic, hearing grossly normal bilaterally and oropharynx normal; Negative for dentition normal HEENT Narrative: Extremely poor dentition with multiple teeth missing, mucous membranes are dry, no thrush Eyes PERRL, EOMs intact bilaterally and conjunctivae normal Eyes Narrative: No scleral icterus Neck no lymphadenopathy, supple, no JVD and no carotid bruits Neck Narrative: Trachea midline, no thyroid enlargement Resp normal respiratory effort, no retractions and no use of accessory muscles Resp Narrative: Crackles at bilateral bases but no wheeze or rhonchi, no signs of respiratory distress Auscultation: crackles and rales; Negative for rhonchi or wheezes Cardio regular rhythm, S1 normal heart sound, S2 normal heart sound, no murmurs, no rub, no gallops, no clicks and no JVD Cardio Narrative: Mild sinus tachycardia GI normal to inspection, nondistended, normoactive bowel sounds, soft to palpation, non-tender and non-distended; Negative for hepatosplenomegaly Extremity Extremity Narrative: Bilateral lower extremity edema with right being greater than the left, right pitting edema 2+, no cyanosis or clubbing, cap refill is 2+ Peripheral Pulses: Yes pulses 2+ throughout Skin no rashes or lesions noted, no wounds, skin turgor normal, no jaundice, no petechiae and no mottling Skin Narrative: Right lower extremity is erythematous and edematous, erythema is from proximal tibia to ankle region, area is tender to touch and warm, no open lesions noted Neuro oriented x3, CN's II-XII intact bilaterally, moves all extremities and no focal motor deficits Neuro Narrative: Falls back to sleep easily, able to move all extremities but pain with right lower extremity movement, no pain at the right knee joint which has been replaced and range of motion there is intact Sensorium / Orientation: awake, alert, oriented to person, oriented to place and oriented to time Speech: speech normal Psych affect normal Psych Narrative: Appropriate Results Lab / Micro Data Attestation: I reviewed the patient's lab results. Result Diagrams: 07/26/21 16:24 07/26/21 17:05 Labs: Laboratory Results - last 24 hr 07/26/21 16:24: WBC 12.4 H, RBC 4.75, Hgb 15.5, Hct 45.6, MCV 96.0 H, MCH 32.6 H, MCHC 34.0, RDW Std Deviation 44.7 H, RDW Coeff of Tg 12.5, Plt Count 162, MPV 11.0, Immature Gran % (Auto) 0.200, Neut % (Auto) 89.1 H, Lymph % (Auto) 5.9 L, [place] % (Auto) 4.0, Eos % (Auto) 0.5, Baso % (Auto) 0.3, Absolute Neuts (auto) 11.1 H, Absolute Lymphs (auto) 0.73 L, Nucleated RBC % 0 07/26/21 17:05: Sodium 131 L, Potassium 4.0, Chloride 91 L, Carbon Dioxide 30.0, Anion Gap 10, BUN 12, Creatinine 0.81, Estim Creat Clear Calc 119.19, Est GFR (MDRD) Af Amer 128, Est GFR (MDRD) Non-Af 106, BUN/Creatinine Ratio 14.8, Glucose 459 H*, Calcium 9.5, Total Bilirubin 1.10 H, AST 128 H, ALT 238 H, Alkaline Phosphatase 260 H, Total Protein 8.3 H, Albumin 3.5, Globulin 4.8 H, Albumin/Globulin Ratio 0.7 L 07/26/21 17:05: Lactic Acid 2.0 07/26/21 19:45: POC Glucose 330 H Micro: Microbiology 07/26/21 17:05 Nasal Secretion SARS-CoV-2 Antigen (Rapid) - Final Radiology Impression Chest X-Ray 07/26/21 16:55 IMPRESSION: There are no acute findings. Electronically Signed: Jeffery Bonds MD at 17:38 EST , Service support , Venous Duplex 07/26/21 16:59 IMPRESSION: There is no demonstrated deep venous thrombosis. Please see technologist report in PACS for further details for their impression/ worksheet/ details/ etc. Electronically Signed: Jeffery Bonds MD at 18:14 EST , Service support , Chest CTA 07/26/21 18:46 IMPRESSION: 1. No demonstrated pulmonary embolism or arterial dissection. 2. There is bilateral minimal infiltrates suggesting an early pneumonia. Electronically Signed: Jeffery Bonds MD at 19:41 EST , Service support , Assessment & Plan Assessment/Plan (1) Cellulitis of leg, right: (2) Acute hyperglycemia: (3) Acute respiratory failure with hypoxia: (4) Transaminitis: (5) Hyperbilirubinemia: (6) Tachycardia: (7) Leukocytosis: PLAN: Right lower extremity cellulitis -Patient indicates he has had cellulitis in his right leg twice in the last 12 months -Unable to remember his last episode specifically -Has not been admitted for this previously -History of bilateral lower extremity lymphedema and I anticipate this predisposes him to infection -Area was outlined -Continue vancomycin and initiate Zosyn rather than Unasyn to cover Pseudomonas -Blood cultures are pending -No open wounds to culture -Check MRSA PCR -Negative duplex -Oxycodone every 4 hours as needed with morphine every 2 hours as needed for breakthrough pain Acute hypoxic respiratory failure -Patient requires much is 5 L nasal cannula in the emergency department but has been weaned to 2 L at this time -Patient is not O2 dependent at baseline -CTA is unimpressive overall but shows signs of emphysematous changes in the apices/no PE -He is reporting increase in sputum and change in color/production -Covid rapid is negative -Patient did have Covid in April of this year but did not require admission -Check viral PCR to rule out flu and other viral infections -With recent COVID-19 infection patient is higher risk for superimposed bacterial pneumonia -Continue antibiotics as above -Check urine strep pneumo and Legionella antigens -Check sputum culture -DuoNebs and as needed albuterol -Supplemental oxygen--> wean as able Transaminitis/hyperbilirubinemia -This appears to be acute -He has had elevated enzymes in the past but his most recent enzyme were normalized -He has a history of chronic hep C for which she has been treated--> most recent RNA quant is negative -Likely related to acute infection -Repeat in a.m. -May need further work-up if trends up or remains elevated DM-2 with acute hyperglycemia -Check hemoglobin A1c -Marked blood sugar elevation on admission -May be related to acute infection -Continue home Lantus dosing -Hold home metformin -Moderate high-dose SSI -Accu-Cheks Tachycardia -Suspect related to pain and acute infection -Monitor -No acute need for telemetry at this time Chronic lower extremity lymphedema -Anticipate this is related to his history of DVTs -Right leg is increased in size with regards to swelling compared to baseline per patient report -Antibiotics as above -Doppler negative and CTA is negative for PE -Continue home Lasix dosing Tobacco abuse -Suspect COPD at baseline after reviewing his CTA -Tobacco abuse is ongoing -Cessation discussed with patient -Patient currently reporting less than a half a pack use daily -Desires nicotine replacement with nicotine patch -Given smoking amount we will utilize 7 mcg DVT prophylaxis -Lovenox -Avoid SCDs at this time with painful right lower extremity CODE STATUS -Full code as discussed with the patient in the emergency department Charges/Coding Visit Charges Inpatient E&M: 75733 Init Hosp L3
[2021-07-26 20:36] LABS: Bedside Glucose 333 mg/dL (70-110)
[2021-07-26 20:38] LABS: Bacteria 0 SEEN /hpf (None Seen); Mucous, Urine 0 SEEN /hpf (<or=2+); Red Blood Cells-Urine 0 SEEN /hpf (0-5); Squamous Epithelial Cells - UA 0 SEEN /hpf (0-5); White Blood Cells 0 SEEN /hpf (0-5)
[2021-07-26 20:39] LABS: Color, Urine Yellow (Yellow); Glucose, Dipstick 1000 mg/dl (Normal); Ketone-Dipstick Negative (Negative); Leukocyte Esterase-Dipstick Negative /ul (Negative); Nitrite-Dipstick Negative (Negative); Occult Blood-Urine Negative /ul (Negative); Protein-Dipstick Negative (Negative); Specific Gravity, Urine 1.015 (1.002-1.030); Urine Bilirubin Dipstick Negative (Negative); Urine Clarity Clear (Clear); Urine Urobilinogen Normal (Normal)
[2021-07-26 21:10] LABS: Reflex Lactate? Y
[2021-07-26 22:44] LABS: Lactic Acid 1.7 mmol/L (0.4-1.9)
[2021-07-26 23:55] LABS: Bedside Glucose 198 mg/dL (70-110)
--- NOTE | 2021-07-27 01:01 | PCM.RX.CS ---
Consult Pharmacy has been consulted to manage selected antiobiotic: Vancomycin Type of Consult: New start Suspected Infection: Skin/Soft tissue Prior Doses of Antibiotics Received/Current Regimen: Medications Vancomycin HCl 1,500 mg/ (Sodium Chloride) 530 mls @ 250 mls/hr IV Q8H HOLLY Discontinued Medications Vancomycin HCl 1,750 mg/ (Sodium Chloride) 535 mls @ 250 mls/hr IV X1 ONE Stop: 07/26/21 21:34 Last Admin: 07/26/21 21:23 Dose: 250 mls/hr Documented by: Labs: Sodium 131 mmol/L (136-145) L 07/26/21 17:05 Potassium 4.0 mmol/L (3.5-5.1) 07/26/21 17:05 Chloride 91 mmol/L (98-107) L 07/26/21 17:05 Carbon Dioxide 30.0 mmol/L (21.0-32.0) 07/26/21 17:05 Anion Gap 10 (5-15) 07/26/21 17:05 BUN 12 mg/dL (7-18) 07/26/21 17:05 Creatinine 0.81 mg/dL (0.70-1.30) 07/26/21 17:05 Est GFR (MDRD) Af Amer 128 mL/min (>60) 07/26/21 17:05 Est GFR (MDRD) Non-Af 106 mL/min (>60) 07/26/21 17:05 BUN/Creatinine Ratio 14.8 RATIO (10-20) 07/26/21 17:05 Glucose 459 mg/dL (74-106) H* 07/26/21 17:05 Microbiology: Microbiology 07/26/21 17:05 Nasal Secretion SARS-CoV-2 Antigen (Rapid) - Final Weight used for dosin kg Estimated Creatinine Clearance: 119 Goal Trough: 15-20 mcg/mL Pharmacy Plan for Drug Dosing: Pharmacy Service will continue to monitor and adjust dosing as required. Follow-Up Labs: Trough Vancomycin Labs to be done on [date and time ordered]: 07/27/21 @2100
[2021-07-27 03:20] LABS: M R Staph aureus DNA By PCR POSITIVE (Negative); Probe Check PASS
[2021-07-27 04:00] VITALS: RESP 16
[2021-07-27 04:55] VITALS: BP 138/94; PULSE 102; RESP 18; TEMP 37.2; O2SAT 94
[2021-07-27] MEDS: Acetaminophen 325 MG Tablet 650 MG PO ×2 (05:02→18:00)
--- NOTE | 2021-07-27 05:49 | NURSING ---
This nurse was walking past patients room, patients IV pump was beeping, so this nurse proceeded into the room. Patients water bottle fell off bedside table, to which the patient yelled at this nurse What the fuck was that? This nurse proceeded to tell patient that it was his water bottle to which he replied, If that was my phone im gonna be f'n pissed. This nurse was trying to reassure that it wasnt his phone when the patient started yelling that his feet were not elevated, Stating that we dont know what we are doing here because he was always taught that a swollen extremity needs to be elevated. This nurse helped patient with leg and left room.
[2021-07-27] MEDS: Insulin Lispro 100 UNIT/ML INSULN.PEN SC ×3 (07:00→17:04)
[2021-07-27 07:03] LABS: Absolute Lymphocyte Count 1.26 X10^3/uL (0.83-4.51); Absolute Neutrophil Count 12.6 X10^3/uL (2.0-7.7); Basophil# 0.05 X10^3/uL; Basophil% 0.3 % (0-1); Eosinophil# 0.09 X10^3/uL; Eosinophils% 0.6 % (0-5); Hematocrit 40.9 % (40-54); Hemoglobin 13.8 g/dL (13.0-16.5); Lymphocyte # 1.26 X10^3/ul (0.83-4.51); Lymphocyte % 8.4 % (19-41); Mean Corp Hgb Conc 33.7 g/dL (32-36); Mean Corpuscular Hgb 32.5 pg (27.0-32.0); Mean Corpuscular Volume 96.2 fL (80-94); Monocyte# 0.86 X10^3/uL; Monocyte% 5.8 % (0-10); NRBC Flagged by Analyzer 0 % (0-5); Neutrophil # 12.61 X10^3/uL (2.7-7.7); Neutrophil % 84.4 % (47-70); Platelet Count 136 K/mm3 (150-450); RBC Distribution Width CV 12.7 % (11.6-14.6); RBC Distribution Width SD 44.8 fl (35.1-43.9); Red Blood Count 4.25 M/mm3 (4.6-6.2); White Blood Count 14.9 K/mm3 (4.4-11.0)
[2021-07-27 07:06] LABS: Bedside Glucose 433 mg/dL (70-110)
[2021-07-27 07:50] LABS: ALB/GLOB Ratio 0.6 RATIO (0.9-2.4); AST(SGOT) 83 U/L (15-37); Alanine Aminotransfer ALT/SGPT 170 U/L (16-61); Albumin, Serum 2.6 g/dL (3.2-5.0); Alkaline Phosphatase 149 U/L (45-117); Anion Gap 8 (5-15); BUN 9 mg/dL (7-18); BUN/Creat Ratio 18.6 RATIO (10-20); Calcium,Total 8.7 mg/dL (8.5-10.1); Chloride 99 mmol/L (98-107); Creatinine, Serum 0.48 mg/dL (0.70-1.30); EST Glomerular Filtration Rate 192 mL/min (>60); Est Glom Filt Rate - Afr Amer 232 mL/min (>60); Estimated Creatinine Clearance 195.35 ml/min; Globulin 4.3 g/dL (2.2-4.2); Glucose 195 mg/dL (74-106); Magnesium 1.8 mg/dL (1.6-2.6); Phosphorus 2.3 mg/dL (2.5-4.9); Potassium 3.6 mmol/L (3.5-5.1); Protein, Total 6.9 g/dL (6.4-8.2); Sodium Level 133 mmol/L (136-145); Thyroid Stim Hormone (TSH) 0.27 uIU/mL (0.358-3.74)
[2021-07-27 09:15] VITALS: BP 106/56; PULSE 90; RESP 16; TEMP 37.6; O2SAT 94
[2021-07-27] MEDS: Enoxaparin 40 MG/0.4 ML Syringe SC (10:05)
[2021-07-27] MEDS: Furosemide 40 MG Tablet PO (10:05)
[2021-07-27] MEDS: oxyCODONE 5 MG Tablet PO ×3 (10:08→22:34)
--- NOTE | 2021-07-27 10:40 | CASEMGMT ---
Addendum entered by Oanh Quintana 07/27/21 12:23: TANNER DAVIES back into pt room. Pt remains on chair and did not open eyes to answer questions. Original Note: TANNER DAVIES in to pt room for assessment, pt sitting up in chair with eyes closed. Pt unable to answer questions at this time as he appears sleeping.
[2021-07-27 11:45] LABS: Bedside Glucose 313 mg/dL (70-110)
[2021-07-27 13:00] VITALS: BP 129/81; PULSE 101; PULSE 99; RESP 18; TEMP 36.8; O2SAT 95; O2SAT 96
[2021-07-27] MEDS: 0.9% Saline Lock 10 ML Syringe IV (13:53)
[2021-07-27 17:26] LABS: Bedside Glucose 367 mg/dL (70-110)
[2021-07-27 17:42] VITALS: BP 118/67; PULSE 100; RESP 16; TEMP 37.2
--- NOTE | 2021-07-27 20:13 | PN.HOSP_ITS ---
Subjective Subjective Patient was seen and examined today, he still having a great deal of tenderness in his right lower leg, he asked this examiner for more pain medications, outside his room nursing states that they received a phone call from one of the patient's family members expressing concerns that the patient was possibly using narcotics as an outpatient. Patient's white blood cell count today was 14.9, high temp today was 99.6. Objective Data Objective Data Vital Signs: Vital Signs Temp Pulse Resp BP Pulse Ox 98.9 F 100 16 118/67 95 07/27/21 17:42 07/27/21 17:42 07/27/21 17:42 07/27/21 17:42 07/27/21 13:00 Oxygen Flow Rate (L/min) 96 Oxygen Delivery Method Room Air Weight: 112.6 kg Body Mass Index (BMI) 33.6 Intake & Output: Intake and Output for Last 24 Hours 07/25/21 07/26/21 07/27/21 23:59 23:59 23:59 Intake Total 1304.5 / 1604.5 1460 / 1460 Output Total 1675 / 1675 Balance 1304.5 / 1604.5 -215 / -215 Lab / Micro Data Result Diagrams: 07/28/21 05:25 07/28/21 05:25 Labs: Laboratory Results - last 24 hr 07/26/21 16:24: B-Natriuretic Peptide 15.0 07/26/21 20:29: POC Glucose 333 H 07/26/21 20:30: Urine Color Yellow, Urine Clarity Clear, Urine pH 5.0, Ur Specific [place] 1.015, Urine Protein Negative, Urine Glucose (UA) 1000 H, Urine Ketones Negative, Urine Occult Blood Negative, Urine Nitrite Negative, Urine Bilirubin Negative, Urine Urobilinogen Normal, Ur Leukocyte Esterase Negative, Urine RBC 0 SEEN, Urine WBC 0 SEEN, Ur Squamous Epith Cells 0 SEEN, Urine Bacteria 0 SEEN, Urine Mucus 0 SEEN 07/26/21 22:04: Lactic Acid 1.7 07/26/21 22:23: POC Glucose 198 H 07/26/21 : MRSA (PCR) POSITIVE H 07/27/21 06:10: WBC 14.9 H, RBC 4.25 L, Hgb 13.8, Hct 40.9, MCV 96.2 H, MCH 32.5 H, MCHC 33.7, RDW Std Deviation 44.8 H, RDW Coeff of Tg 12.7, Plt Count 136 L, MPV 11.0, Immature Gran % (Auto) 0.500, Neut % (Auto) 84.4 H, Lymph % (Auto) 8.4 L, [place] % (Auto) 5.8, Eos % (Auto) 0.6, Baso % (Auto) 0.3, Absolute Neuts (auto) 12.6 H, Absolute Lymphs (auto) 1.26, Nucleated RBC % 0 07/27/21 06:10: Sodium 133 L, Potassium 3.6, Chloride 99, Carbon Dioxide 26.0, Anion Gap 8, BUN 9, Creatinine 0.48 L, Estim Creat Clear Calc 195.35, Est GFR (MDRD) Af Amer 232, Est GFR (MDRD) Non-Af 192, BUN/Creatinine Ratio 18.6, Glucose 195 H, Calcium 8.7, Phosphorus 2.3 L, Magnesium 1.8, Total Bilirubin 1.80 H, AST 83 H, ALT 170 H, Alkaline Phosphatase 149 H, Total Protein 6.9, Albumin 2.6 L, Globulin 4.3 H, Albumin/Globulin Ratio 0.6 L, TSH 0.27 L 07/27/21 06:57: POC Glucose 433 H 07/27/21 11:29: POC Glucose 313 H 07/27/21 17:01: POC Glucose 367 H Micro: Microbiology 07/27/21 18:10 Urine, Clean Catch Streptococcus pneumoniae Antigen (M - Final 07/27/21 18:10 Urine, Clean Catch Legionella Antigen - Final 07/26/21 17:17 Blood Culture (Wb) - Anticubital Left Blood Culture - Preliminary 07/26/21 17:05 Blood Culture (Wb) - Anticubital Left Blood Culture - Preliminary 07/26/21 17:05 Nasal Secretion SARS-CoV-2 Antigen (Rapid) - Final Physical Exam Const alert Constitutional Narrative: Patient is alert and complains of right leg discomfort General Appearance: cooperative, well kempt and well developed Orientation / Consciousness: awake, oriented to person, oriented to place and oriented to time HEENT normocephalic, head/scalp atraumatic and moist oral mucous membranes Head and Scalp: normocephalic Eyes PERRL, EOMs intact bilaterally and conjunctivae normal Neck nuchal rigidity, supple, no JVD, thyroid normal and no carotid bruits General: trachea midline Resp normal respiratory effort, no retractions, no use of accessory muscles and clear to auscultation bilaterally Auscultation: Negative for rales, rhonchi or wheezes Cardio regular rate, regular rhythm, S1 normal heart sound, S2 normal heart sound, no murmurs, no rub and no gallops GI normal to inspection, nondistended, normoactive bowel sounds, soft to palpation, non-tender and non-distended Extremity Extremity Narrative: Lymphedematous changes are noted bilaterally with the right lower leg appearing more swollen than the left lower leg, right lower leg is also very tender to palpation and appears to be more reddened than the left lower leg. General Extremity: edema Skin no rashes or lesions noted General Skin Exam: no breakdown Neuro oriented x3, CN's II-XII intact bilaterally, no focal motor deficits and no sensory deficits noted Sensorium / Orientation: awake and alert Speech: speech normal Psych thought process normal and affect normal Assessment & Plan Assessment/Plan (1) Cellulitis of leg, right: PLAN: 1. Right lower extremity cellulitis on a backdrop of chronic lymphedema-patient will remain on his current antibiotic coverage for now, he has been given oral and IV pain medications at low dose due to concerns of possible drug-seeking behavior. #2 acute hypoxic respiratory failure-exact etiology is unclear at this time, patient is currently on 2 L of nasal cannula oxygen and appears stable #3 chronic lymphedema of the lower extremities #4 cirrhosis by history-patient's hepatic enzymes are elevated, there is no treatment recommended at this time #5 chronic venous stasis-I will adjust patient's medications including his diuretics #6 type 2 diabetes-blood sugars will be monitored, sliding scale insulin will be administered as needed #7 chronic obstructive pulmonary disease-patient is currently using a nicotine patch, he relates to smoking less than a half a pack of cigarettes daily. Charges/Coding Visit Charges Inpatient E&M: 58758 Subs Hosp L2
[2021-07-27 21:21] LABS: Vancomycin, Trough Level 11.7 ug/mL (5.0-15.0)
[2021-07-27 21:29] VITALS: BP 129/72; PULSE 103; RESP 16; TEMP 37.6; O2SAT 92
[2021-07-28 00:16] LABS: Bedside Glucose 376 mg/dL (70-110)
--- NOTE | 2021-07-28 02:19 | PCM.RX.CS ---
Consult Pharmacy has been consulted to manage selected antiobiotic: Vancomycin Type of Consult: Follow-up Labs: Sodium 133 mmol/L (136-145) L 07/27/21 06:10 Potassium 3.6 mmol/L (3.5-5.1) 07/27/21 06:10 Chloride 99 mmol/L (98-107) 07/27/21 06:10 Carbon Dioxide 26.0 mmol/L (21.0-32.0) 07/27/21 06:10 Anion Gap 8 (5-15) 07/27/21 06:10 BUN 9 mg/dL (7-18) 07/27/21 06:10 Creatinine 0.48 mg/dL (0.70-1.30) L 07/27/21 06:10 Est GFR (MDRD) Af Amer 232 mL/min (>60) 07/27/21 06:10 Est GFR (MDRD) Non-Af 192 mL/min (>60) 07/27/21 06:10 BUN/Creatinine Ratio 18.6 RATIO (10-20) 07/27/21 06:10 Glucose 195 mg/dL (74-106) H 07/27/21 06:10 Vancomycin Trough 11.7 ug/mL (5.0-15.0) 07/27/21 21:00 Microbiology: Microbiology 07/27/21 18:10 Urine, Clean Catch Streptococcus pneumoniae Antigen (M - Final 07/27/21 18:10 Urine, Clean Catch Legionella Antigen - Final 07/26/21 17:17 Blood Culture (Wb) - Anticubital Left Blood Culture - Preliminary 07/26/21 17:05 Blood Culture (Wb) - Anticubital Left Blood Culture - Preliminary 07/26/21 17:05 Nasal Secretion SARS-CoV-2 Antigen (Rapid) - Final Goal Trough: 15-20 mcg/mL Pharmacy Plan for Drug Dosing: Pharmacy Service will continue to monitor and adjust dosing as required. TROUGH 11.7 @ 7.5HRS. INCREASE TO 1750MG Q8H AND FOLLOW UP TROUGH PRIOR TO 4TH DOSE Follow-Up Labs: Trough Vancomycin Labs to be done on [date and time ordered]: 07/29 @ 0500
[2021-07-28 03:27] VITALS: BP 152/73; PULSE 103; RESP 18; TEMP 37.5; O2SAT 92
[2021-07-28] MEDS: oxyCODONE 5 MG Tablet PO ×3 (03:33→18:39)
[2021-07-28] MEDS: Acetaminophen 325 MG Tablet 650 MG PO ×3 (03:33→18:39)
[2021-07-28] MEDS: Insulin Lispro 100 UNIT/ML INSULN.PEN SC ×3 (06:42→16:32)
[2021-07-28 06:50] LABS: Bedside Glucose 266 mg/dL (70-110)
[2021-07-28 07:02] LABS: Absolute Lymphocyte Count 1.12 X10^3/uL (0.83-4.51); Absolute Neutrophil Count 7.9 X10^3/uL (2.0-7.7); Basophil# 0.03 X10^3/uL; Basophil% 0.3 % (0-1); Hematocrit 40.1 % (40-54); Hemoglobin 13.6 g/dL (13.0-16.5); Lymphocyte # 1.12 X10^3/ul (0.83-4.51); Lymphocyte % 10.9 % (19-41); Mean Corp Hgb Conc 33.9 g/dL (32-36); Mean Corpuscular Hgb 32.3 pg (27.0-32.0); Mean Corpuscular Volume 95.2 fL (80-94); Mean Platelet Vol. 11.5 fl (6.2-12.0); Monocyte# 1.09 X10^3/uL; Monocyte% 10.6 % (0-10); NRBC Flagged by Analyzer 0 % (0-5); Neutrophil # 7.87 X10^3/uL (2.7-7.7); Neutrophil % 76.8 % (47-70); Platelet Count 112 K/mm3 (150-450); RBC Distribution Width CV 12.7 % (11.6-14.6); RBC Distribution Width SD 44.1 fl (35.1-43.9); Red Blood Count 4.21 M/mm3 (4.6-6.2); White Blood Count 10.3 K/mm3 (4.4-11.0)
[2021-07-28 07:55] LABS: ALB/GLOB Ratio 0.5 RATIO (0.9-2.4); AST(SGOT) 73 U/L (15-37); Alanine Aminotransfer ALT/SGPT 133 U/L (16-61); Albumin, Serum 2.4 g/dL (3.2-5.0); Alkaline Phosphatase 146 U/L (45-117); Anion Gap 8 (5-15); BUN 10 mg/dL (7-18); BUN/Creat Ratio 20.4 RATIO (10-20); Calcium,Total 8.5 mg/dL (8.5-10.1); Chloride 100 mmol/L (98-107); Creatinine, Serum 0.49 mg/dL (0.70-1.30); EST Glomerular Filtration Rate 189 mL/min (>60); Est Glom Filt Rate - Afr Amer 229 mL/min (>60); Estimated Creatinine Clearance 191.36 ml/min; Globulin 4.4 g/dL (2.2-4.2); Glucose 235 mg/dL (74-106); Potassium 3.2 mmol/L (3.5-5.1); Protein, Total 6.8 g/dL (6.4-8.2); Sodium Level 134 mmol/L (136-145)
[2021-07-28 08:00] VITALS: BP 116/68; PULSE 88; RESP 16; TEMP 36.8; O2SAT 92
[2021-07-28 08:02] VITALS: PULSE 88; O2SAT 91
[2021-07-28] MEDS: Furosemide 40 MG Tablet PO ×2 (11:27→22:14)
[2021-07-28] MEDS: Enoxaparin 40 MG/0.4 ML Syringe SC (11:27)
[2021-07-28 11:40] LABS: Bedside Glucose 426 mg/dL (70-110)
[2021-07-28] MEDS: Potassium Chloride Oral Tablet 20 MEQ 60 MEQ PO (12:10)
[2021-07-28 14:00] VITALS: BP 117/76; PULSE 80; RESP 16; TEMP 36.9; O2SAT 93
--- NOTE | 2021-07-28 15:35 | CASEMGMT ---
TANNER DAVIES Assessment: Face to Face with pt for initial transition planning/care coordination assessment. TANNER DAVIES introduced self and role at [facility], pt voices understanding and consents to assessment. Pt is A/O x4 and answers all questions appropriately at this time. Pt sitting up in chair with legs elevated and eyes closed throughout assessment. Care providers, pharmacy, and demographics verified/updated. Admitting Dx: R LE cellulitis/acute hypoxic resp failure PCP:Mohamud Specialists:Pt denies. Preferred [facility]acy: [facility] Insurance: [facility] Prescription Benefit: yes LW/HPOA: Pt denies having a LW/DPOA and denies need for info regarding AD. LNOK: Bhakti Burton, sig other Living Arrangements: Pt lives with sig other in a two story house with 3 steps to enter with a rail. Pt reports he is I in ADL's and denies concerns at home. Transportation: Pt drives self and denies concerns with transportation. DME/HHC/SNF: Pt has a functioning BGM with strips and lancets, a cane and walker and compression pumps at home. Pt uses mainly his cane. He checks his blood sugars at least 3x/day. Pt denies hx of HHC or SNF stays. Pt states no concerns with going home at time of dc. Pt states no further concerns/needs. CM to follow. Advised pt to ask CM if any further question/concerns/needs arise, voices understanding. Pt Goal: Home Plan: Home
[2021-07-28 17:20] LABS: Bedside Glucose 405 mg/dL (70-110)
--- NOTE | 2021-07-28 19:47 | PN.HOSP_ITS ---
Subjective Subjective Patient was seen and examined today, he continues to complain of pain in his right leg, I told the patient that he has pain medications ordered. According to nursing, most of the time the patient appears to be comfortable and in no distress. Patient's right lower leg appears less edematous today with some signs of wrinkling of the skin. I have made a decision tonight to increase the patient's diuretics, his potassium was slightly low this morning and I will provide replacement potassium. Objective Data Objective Data Vital Signs: Vital Signs Temp Pulse Resp BP Pulse Ox 98.4 F 80 16 117/76 93 07/28/21 14:00 07/28/21 14:00 07/28/21 14:00 07/28/21 14:00 07/28/21 14:00 Oxygen Flow Rate (L/min) 96 Oxygen Delivery Method Room Air Weight: 114.4 kg Body Mass Index (BMI) 33.6 Intake & Output: Intake and Output for Last 24 Hours 07/26/21 07/27/21 07/28/21 23:59 23:59 23:59 Intake Total 1304.5 / 1604.5 1460 / 1460 2716.25 / 2716.25 Output Total 1675 / 1675 2050 / 2050 Balance 1304.5 / 1604.5 -215 / -215 666.25 / 666.25 Lab / Micro Data Result Diagrams: 07/28/21 05:25 07/28/21 05:25 Labs: Laboratory Results - last 24 hr 07/27/21 21:00: Vancomycin Trough 11.7 07/27/21 21:36: POC Glucose 376 H 07/28/21 05:25: WBC 10.3, RBC 4.21 L, Hgb 13.6, Hct 40.1, MCV 95.2 H, MCH 32.3 H , MCHC 33.9, RDW Std Deviation 44.1 H, RDW Coeff of Tg 12.7, Plt Count 112 L, MPV 11.5, Immature Gran % (Auto) 0.400, Neut % (Auto) 76.8 H, Lymph % (Auto) 10.9 L, [place] % (Auto) 10.6 H, Eos % (Auto) 1.0, Baso % (Auto) 0.3, Absolute Neuts (auto) 7.9 H, Absolute Lymphs (auto) 1.12, Nucleated RBC % 0 07/28/21 05:25: Sodium 134 L, Potassium 3.2 L, Chloride 100, Carbon Dioxide 26.0, Anion Gap 8, BUN 10, Creatinine 0.49 L, Estim Creat Clear Calc 191.36, Est GFR (MDRD) Af Amer 229, Est GFR (MDRD) Non-Af 189, BUN/Creatinine Ratio 20.4 H, Glucose 235 H, Calcium 8.5, Total Bilirubin 1.10 H, AST 73 H, ALT 133 H, Alkaline Phosphatase 146 H, Total Protein 6.8, Albumin 2.4 L, Globulin 4.4 H, Albumin/Globulin Ratio 0.5 L 07/28/21 06:41: POC Glucose 266 H 07/28/21 11:18: POC Glucose 426 H 07/28/21 16:31: POC Glucose 405 H Micro: Microbiology 07/26/21 17:05 Blood Culture (Wb) - Anticubital Left Blood Culture - Preliminary Gram negative gina 07/27/21 18:10 Urine, Clean Catch Streptococcus pneumoniae Antigen (M - Final 07/27/21 18:10 Urine, Clean Catch Legionella Antigen - Final 07/26/21 17:17 Blood Culture (Wb) - Anticubital Left Blood Culture - Preliminary 07/26/21 17:05 Nasal Secretion SARS-CoV-2 Antigen (Rapid) - Final Physical Exam Narrative Const alert Constitutional Narrative: Patient is alert and complains of right leg discomfort General Appearance: cooperative, well kempt and well developed Orientation / Consciousness: awake, oriented to person, oriented to place and oriented to time HEENT normocephalic, head/scalp atraumatic and moist oral mucous membranes Head and Scalp: normocephalic Eyes PERRL, EOMs intact bilaterally and conjunctivae normal Neck nuchal rigidity, supple, no JVD, thyroid normal and no carotid bruits General: trachea midline Resp normal respiratory effort, no retractions, no use of accessory muscles and clear to auscultation bilaterally Auscultation: Negative for rales, rhonchi or wheezes Cardio regular rate, regular rhythm, S1 normal heart sound, S2 normal heart sound, no murmurs, no rub and no gallops GI normal to inspection, nondistended, normoactive bowel sounds, soft to palpation, non-tender and non-distended Extremity Extremity Narrative: Lymphedematous changes are noted bilaterally with the right lower leg appearing more swollen than the left lower leg, right lower leg is also very tender to palpation and appears to be more reddened than the left lower leg. General Extremity: edema Skin no rashes or lesions noted General Skin Exam: no breakdown Neuro oriented x3, CN's II-XII intact bilaterally, no focal motor deficits and no sensory deficits noted Sensorium / Orientation: awake and alert Speech: speech normal Psych thought process normal and affect normal Assessment & Plan Assessment/Plan (1) Cellulitis of leg, right: PLAN: 1. Right lower extremity cellulitis on a backdrop of chronic lymphedema-patient will remain on his current antibiotic coverage for now, he has been given oral and IV pain medications at low dose due to concerns of pos sible drug-seeking behavior. #2 acute hypoxic respiratory failure-exact etiology is unclear at this time, patient is currently on room air #3 chronic lymphedema of the lower extremities #4 cirrhosis by history-patient's hepatic enzymes are elevated, there is no treatment recommended at this time #5 chronic venous stasis-I will adjust patient's medications including his diuretics #6 type 2 diabetes-blood sugars will be monitored, sliding scale insulin will be administered as needed #7 chronic obstructive pulmonary disease-patient is currently using a nicotine patch, he relates to smoking less than a half a pack of cigarettes daily. Charges/Coding Visit Charges Inpatient E&M: 44156 Subs Hosp L2
[2021-07-28 20:16] VITALS: BP 112/66; PULSE 85; RESP 18; TEMP 36.9; O2SAT 94
[2021-07-28] MEDS: 0.9% Saline Lock 10 ML Syringe IV (22:24)
[2021-07-28 22:30] LABS: Bedside Glucose 305 mg/dL (70-110)
[2021-07-29] MEDS: Acetaminophen 325 MG Tablet 650 MG PO ×2 (01:22→08:01)
[2021-07-29] MEDS: oxyCODONE 5 MG Tablet PO ×2 (01:22→08:01)
[2021-07-29 03:00] VITALS: BP 108/54; PULSE 82; RESP 18; TEMP 37; O2SAT 94
[2021-07-29 06:09] LABS: Vancomycin, Trough Level 15.2 ug/mL (5.0-15.0)
--- NOTE | 2021-07-29 06:16 | PCM.RX.CS ---
Consult Pharmacy has been consulted to manage selected antiobiotic: Vancomycin Type of Consult: Follow-up Labs: Sodium 134 mmol/L (136-145) L 07/28/21 05:25 Potassium 3.2 mmol/L (3.5-5.1) L 07/28/21 05:25 Chloride 100 mmol/L (98-107) 07/28/21 05:25 Carbon Dioxide 26.0 mmol/L (21.0-32.0) 07/28/21 05:25 Anion Gap 8 (5-15) 07/28/21 05:25 BUN 10 mg/dL (7-18) 07/28/21 05:25 Creatinine 0.49 mg/dL (0.70-1.30) L 07/28/21 05:25 Est GFR (MDRD) Af Amer 229 mL/min (>60) 07/28/21 05:25 Est GFR (MDRD) Non-Af 189 mL/min (>60) 07/28/21 05:25 BUN/Creatinine Ratio 20.4 RATIO (10-20) H 07/28/21 05:25 Glucose 235 mg/dL (74-106) H 07/28/21 05:25 Vancomycin Trough 15.2 ug/mL (5.0-15.0) H 07/29/21 04:37 Microbiology: Microbiology 07/26/21 17:05 Blood Culture (Wb) - Anticubital Left Blood Culture - Preliminary Gram negative gina 07/27/21 18:10 Urine, Clean Catch Streptococcus pneumoniae Antigen (M - Final 07/27/21 18:10 Urine, Clean Catch Legionella Antigen - Final 07/26/21 17:17 Blood Culture (Wb) - Anticubital Left Blood Culture - Preliminary 07/26/21 17:05 Nasal Secretion SARS-CoV-2 Antigen (Rapid) - Final Goal Trough: 15-20 mcg/mL Pharmacy Plan for Drug Dosing: Pharmacy Service will continue to monitor and adjust dosing as required. TROUGH 15.2 @ 8HRS. NO CHANGES, FOLLOW UP TROUGH IN 2 DAYS Follow-Up Labs: Trough Vancomycin Labs to be done on [date and time ordered]: 07/31 @ 0500
[2021-07-29] MEDS: Insulin Lispro 100 UNIT/ML INSULN.PEN SC (06:35)
[2021-07-29 06:41] LABS: Bedside Glucose 238 mg/dL (70-110)
[2021-07-29 07:58] VITALS: BP 149/95; PULSE 85; RESP 18; TEMP 36.7; O2SAT 96
[2021-07-29] MEDS: Enoxaparin 40 MG/0.4 ML Syringe SC (07:59)
[2021-07-29] MEDS: Potassium Chloride Oral Tablet 20 MEQ PO (08:02)
[2021-07-29] MEDS: Furosemide 40 MG Tablet PO (08:02)
--- NOTE | 2021-07-29 08:22 | PCM.DC ---
Discharge Instructions Diet Discharge Diet: 1800 Calorie Control Diet Activity Discharge Activity: Return to Normal Activity Weight Bearing Status: Full weight bearing Follow Up Care Test Results: Test results from this visit will be discussed in further detail at your follow-up appointment, if applicable. Discharge Plan Admission Admit Date/Time: 07/26/21 19:54 Primary Reason for Your Visit: right leg cellulitis, bacteremia Attending Provider: Nish Jenkins Primary Care Provider: Wanda Mallory Discharge Orders/Prescriptions Prescriptions: New furosemide 40 mg Tablet 40 mg PO BIDLX Qty: 60 RF: 0 oxycodone 5 mg Tablet 5 mg PO Q4H PRN PRN (Reason: Pain Score 4-5) 5 Days Qty: 15 RF: 0 potassium chloride [Klor-Con M20] 20 mEq Tablet,Er Particles/Crystals 20 meq PO BIDCM Qty: 60 RF: 0 levofloxacin 500 mg tablet 500 mg PO DAILY Qty: 10 RF: 0 Continued cholecalciferol (vitamin D3) 1,250 mcg (50,000 unit) tablet 1,250 mcg PO MO RF: 0 metformin 1,000 mg tablet 1,000 mg PO BID RF: 0 albuterol sulfate 90 mcg/actuation HFA aerosol inhaler 1 - 2 mcg INHALATION Q4H PRN PRN (Reason: Shortness Of Breath) RF: 0 Levemir FlexTouch U-100 Insuln 100 unit/mL (3 mL) insulin pen 34 unit SUBCUT QHS RF: 0 Discontinued furosemide 20 mg tablet 40 mg PO DAILY RF: 0 Referrals / Follow Up: Wanda Mallory NP-C [Primary Care Provider] - Within 2 Weeks Disposition Disposition (needs filled in before D/C Order can be placed): Home, Self Care
--- NOTE | 2021-07-29 08:43 | PCM.DC.SUM ---
Providers Date of Admission: 07/26/21 Date of Discharge: 07/29/21 Primary Care Physician: BILLIE Babin Reason For Visit: R LE CELLULITIS/ACUTE HYPOXIC RESP FAILURE Diagnosis Discharge Diagnosis (1) Cellulitis of leg, right: Status: Acute Code(s): L03.115 - Cellulitis of right lower limb Plan: 1. Right lower leg cellulitis secondary to Serratia marcescens #2 bacteremia secondary to Serratia marcescens #3 acute hypoxic respiratory failure-etiology unknown #4 chronic lymphedema of the lower extremities #5 cirrhosis by history #6 chronic venous stasis of the legs #7 type 2 diabetes #8 chronic obstructive pulmonary disease Medications at Discharge Home Medications cholecalciferol (vitamin D3) 1,250 mcg (50,000 unit) tablet 1,250 mcg PO MO 04/09/20 Levemir FlexTouch U-100 Insuln 34 unit SUBCUT QHS 05/27/21 albuterol sulfate 1 - 2 mcg INHALATION Q4H PRN PRN 05/27/21 metformin 1,000 mg PO BID 05/27/21 furosemide 40 mg PO BIDLX #60 tab 07/29/21 levofloxacin 500 mg PO DAILY #10 tab 07/29/21 oxycodone 5 mg PO Q4H PRN PRN 5 Days #15 tab 07/29/21 potassium chloride [Klor-Con M20] 20 meq PO BIDCM #60 tab 07/29/21 Hospital Course Operations None Procedures None Summary of Care Provided Minutes Spent on Discharge: 32 Hospital Course: This 51-year-old white male was seen in the emergency room at [facility] with complaints of severe right leg pain with redness and swelling. He had a history of chronic lymphedema of the legs, work-up in the emergency room included a venous duplex of the leg which showed no evidence of deep venous thrombosis. Patient was admitted to [place] [id number], he was placed on IV antibiotics and received IV pain medication. The swelling in the patient's right lower leg lessened during his hospital stay, patient's home diuretics were increased during his hospitalization. Blood cultures grew out Serratia marcescens. On 07/29/2021, patient was seen and examined: On examination he appeared in good health and spirits. Vital signs as documented. Skin warm and dry and without overt rashes. Neck without JVD, neck was supple, trachea midline, thyroid was normal. Lungs clear bilaterally, normal air movement was noted. Heart exam notable for regular rhythm, normal sounds and absence of murmurs, rubs or gallops. Abdomen unremarkable and without evidence of organomegaly, masses, or abdominal aortic enlargement. Bowel sounds are present, abdomen is not distended. Extremities-there was bilateral lower leg edema worse on the right noted with venous stasis changes noted, no cyanosis was noted, no clubbing was noted. Neuro: Cranial nerves II through XII are grossly intact, no focal motor deficits were noted, sensation to light touch and pinprick intact, motor exam 5/5 throughout. Psych: Patient is alert and oriented x3, he does not appear anxious or depressed, he does not appear agitated. Patient was felt to be stable for discharge on 07/29/2021. Weight / BMI Weight Weight: 117 kg Body Mass Index (BMI) 33.6 ABG / Lab / Microbiology Data Result Diagrams: 07/28/21 05:25 07/28/21 05:25 Laboratory: Laboratory Results - last 24 hr 07/28/21 11:18: POC Glucose 426 H 07/28/21 16:31: POC Glucose 405 H 07/28/21 22:13: POC Glucose 305 H 07/29/21 04:37: Vancomycin Trough 15.2 H 07/29/21 06:34: POC Glucose 238 H Microbiology: Microbiology 07/26/21 17:17 Blood Culture (Wb) - Anticubital Left Blood Culture - Preliminary Serratia marcescens 07/26/21 17:05 Blood Culture (Wb) - Anticubital Left Blood Culture - Preliminary Gram negative gina 07/27/21 18:10 Urine, Clean Catch Streptococcus pneumoniae Antigen (M - Final 07/27/21 18:10 Urine, Clean Catch Legionella Antigen - Final 07/26/21 17:05 Nasal Secretion SARS-CoV-2 Antigen (Rapid) - Final D/C Instructions Discharge Diet: 1800 Calorie Control Diet Weight Bearing Status: Full weight bearing Meaningful Use Info Meaningful Use Diagnoses (Choose all that apply): None applicable Discharge Plan Admission Admit Date/Time: 07/26/21 19:54 Primary Reason for Your Visit: right leg cellulitis, bacteremia Attending Provider: Nish Jenkins Primary Care Provider: Wanda Mallory Discharge Orders/Prescriptions Prescriptions: New furosemide 40 mg Tablet 40 mg PO BIDLX Qty: 60 RF: 0 oxycodone 5 mg Tablet 5 mg PO Q4H PRN PRN (Reason: Pain Score 4-5) 5 Days Qty: 15 RF: 0 potassium chloride [Klor-Con M20] 20 mEq Tablet,Er Particles/Crystals 20 meq PO BIDCM Qty: 60 RF: 0 levofloxacin 500 mg tablet 500 mg PO DAILY Qty: 10 RF: 0 Continued cholecalciferol (vitamin D3) 1,250 mcg (50,000 unit) tablet 1,250 mcg PO MO RF: 0 metformin 1,000 mg tablet 1,000 mg PO BID RF: 0 albuterol sulfate 90 mcg/actuation HFA aerosol inhaler 1 - 2 mcg INHALATION Q4H PRN PRN (Reason: Shortness Of Breath) RF: 0 Levemir FlexTouch U-100 Insuln 100 unit/mL (3 mL) insulin pen 34 unit SUBCUT QHS RF: 0 Discontinued furosemide 20 mg tablet 40 mg PO DAILY RF: 0 Referrals / Follow Up: Wanda Mallory NP-C [Primary Care Provider] - Within 2 Weeks Disposition Disposition (needs filled in before D/C Order can be placed): Home, Self Care Charges/Coding Visit Charges Inpatient E&M: 55602 Disch Hosp
[2021-07-29] MEDS: levoFLOXacin 500 MG Tablet PO (09:53)
[2021-07-29 09:55] VITALS: BP 111/73; PULSE 96; RESP 18; TEMP 36.7; O2SAT 96
== END 2021-07-29 10:15 | disposition home or self-care (01) | DRG 383 ==
LOC: ED 19:53 → MS3 20:21
PROVIDERS: Admitting Provider Internal Medicine; Emergency Provider Emergency Medicine; PCP Nurse Practitioner Adult Health; Visit Provider Internal Medicine
DX: L03.115 Cellulitis of right lower limb (principal); J96.01 Acute respiratory failure with hypoxia; E87.6 Hypokalemia; E11.65 Type 2 diabetes mellitus with hyperglycemia; Z20.822 Contact with and (suspected) exposure to COVID-19; J44.9 Chronic obstructive pulmonary disease, unspecified; M79.89 Other specified soft tissue disorders; I89.0 Lymphedema, not elsewhere classified; F17.210 Nicotine dependence, cigarettes, uncomplicated; Z79.84 Long term (current) use of oral hypoglycemic drugs; Z79.890 Hormone replacement therapy; Z79.899 Other long term (current) drug therapy; Z86.16 Personal history of COVID-19; Z86.718 Personal history of other venous thrombosis and embolism; Z86.19 Personal history of other infectious and parasitic diseases
CPT/HCPCS: 36415; 71045; 71275; 80053; 80202; 81001; 82962; 83605; 83735; 83880; 84100; 84443; 85025; 87040; 87077; 87186; 87426; 87449; 87641; 93971; 97110; 97162; 97530; 99282; 99406; J7030; J7040; J7050; Q9967; A4216; J0295; J2405

== ENCOUNTER 2021-09-05 04:17 | Emergency (ER) | payer MEDICAID, SELFPAY ==
[2021-09-05 04:18] VITALS: BP 144/87; PULSE 88; RESP 17; TEMP 37.1; O2SAT 97; BMI 33.0
--- NOTE | 2021-09-05 04:48 | EDS_ITS ---
HPI History of Present Illness Chief Complaint: Ear Problem Narrative Narrative: Patient is 51-year-old male with history of diabetes and hypertension. He states 1 to 2 days ago he had his fianc?e placing a small camera inside his ear to check to see if he was able to remove all of his e arwax. He states that he believes a piece of the camera broke off and got stuck in his right ear. He states has been having increasing pain with some discharge from the ear since that time. He states he is concerned that he may need someone to remove a foreign body in his right ear or that he is developing infection and therefore comes in for evaluation. [facility] Medical History Chronic venous stasis Emphysema, unspecified Hepatitis C History of deep venous thrombosis Hyponatremia Lymphedema Nicotine dependence Type 2 diabetes mellitus without complication Home Medications cholecalciferol (vitamin D3) 1,250 mcg (50,000 unit) tablet 1,250 mcg PO MO 04/09/20 [History Last Taken 07/25/21] Levemir FlexTouch U-100 Insuln 30 unit SUBCUT QHS 05/27/21 [History Last Taken 07/25/21] albuterol sulfate 1 - 2 mcg INHALATION Q4H PRN PRN 05/27/21 [History Last Taken 07/26/21] metformin 1,000 mg PO BID 05/27/21 [History Last Taken 07/26/21] furosemide 40 mg PO BIDLX #60 tab 07/29/21 [Rx Last Taken Unknown] oxycodone 5 mg PO Q4H PRN PRN 5 Days #15 tab 07/29/21 [Rx Last Taken Unknown] potassium chloride [Klor-Con M20] 20 meq PO BIDCM #60 tab 07/29/21 [Rx Last Taken Unknown] ciprofloxacin-hydrocortisone [Cipro HC] 3 drp RIGHT EAR BID 7 Days #10 ml 09/05/21 [Rx Last Taken Unknown] insulin aspart U-100 [Novolog Flexpen U-100 Insulin] SUBCUT 09/05/21 [History Last Taken Unknown] oxycodone-acetaminophen [Endocet] 1 tab PO Q6H PRN 3 Days #12 tab 09/05/21 [Rx Last Taken Unknown] Allergy/AdvReac Type Severity Reaction Status Date / Time No Known Allergies Allergy Verified 07/26/21 15:58 Family History Brother Diabetes Sister Cirrhosis Surgical History History of appendectomy History of arthroscopic knee surgery History of bowel resection History of facial surgery History of inguinal hernia repair History of tibial fracture Social History Smoking Status: Current every day smoker tobacco type: cigarettes alcohol intake: never substance use type: does not use caffeine: Yes Type: coffee Number of servings: 1 ROS ROS ED Constitutional Constitutional ED: Denies chills or fever(s) ENT ENT ED: Reports ear pain right; Denies sore throat Cardiovascular Cardiovascular: Denies chest pain Respiratory/Chest Respiratory/Chest: Denies cough or dyspnea Gastrointestinal Gastrointestinal: Denies abdominal pain, diarrhea, nausea or vomiting Genitourinary Genitourinary ED: Denies dysuria Musculoskeletal Musculoskeletal: Denies myalgias Integumentary Denies rash Neurologic Neurologic: Denies headache(s) Hematologic/Lymphatic Hematologic/Lymphatic: Denies easy bleeding or easy bruising EXAM Physical Exam Const Vital Signs: 09/05/21 04:18 09/05/21 05:01 Temperature 98.7 F Temperature Source Temporal Pulse Rate 88 74 Respiratory Rate 17 16 Blood Pressure 144/87 H 141/91 H Blood Pressure Mean 106 107 Pulse Ox 97 Oxygen Delivery Method Room Air Positive well nourished and well developed General Appearance ED: well developed HEENT Reports moist mucous membranes HEENT Narrative: The left canal and TM are normal. The right canal is erythematous and edematous consistent with otitis externa. The TM is dull but is visualized and there is no obvious foreign body present. There is pain with external manipulation of the right ear. No mastoid pain bilaterally. No secondary changes to suggest malignant otitis externa Eyes PERRL and EOMs intact bilaterally Neck supple Resp normal respiratory effort and clear to auscultation bilaterally Cardio regular rate and regular rhythm Extremity normal to inspection Neuro oriented x3 and CN's II-XII intact bilaterally Sensorium / Orientation: alert Motor Exam: strength 5/5 throughout Psych mental status grossly normal Skin no rashes or lesions noted MDM MDM MDM Narrative Medical decision making narrative: Patient presented mildly hypertensive but does have history of this and is in pain and otherwise has stable vitals. On physical exam I do not see any type of foreign body retained within the right ear. However with his report of recent instrumentation and now asymmetric redness swelling and pain I do believe he has developed a otitis externa. At this time as he did not have changes to suggest malignant otitis externa or systemic infection I do not believe there is need for further work-up. I will place the patient on antibiotics secondary to the infection but otherwise he is safe for discharge. Discharge Plan Triage Chief Complaint: Ear Problem ED Provider: Scotty Wisdom Dx/Rx/DC Orders Clinical Impression: Otitis externa of right ear Instructions: ED External Ear Infection (Adult) Prescriptions: New oxycodone-acetaminophen [Endocet] 5-325 mg tablet 1 tab PO Q6H PRN (Reason: pain) 3 Days Qty: 12 RF: 0 Cipro HC 0.2-1 % drops,suspension 3 drp RIGHT EAR BID 7 Days Qty: 10 RF: 0 No Action cholecalciferol (vitamin D3) 1,250 mcg (50,000 unit) tablet 1,250 mcg PO MO RF: 0 metformin 1,000 mg tablet 1,000 mg PO BID RF: 0 albuterol sulfate 90 mcg/actuation HFA aerosol inhaler 1 - 2 mcg INHALATION Q4H PRN PRN (Reason: Shortness Of Breath) RF: 0 Levemir FlexTouch U-100 Insuln 100 unit/mL (3 mL) insulin pen 30 unit SUBCUT QHS RF: 0 furosemide 40 mg Tablet 40 mg PO BIDLX Qty: 60 RF: 0 oxycodone 5 mg Tablet 5 mg PO Q4H PRN PRN (Reason: Pain Score 4-5) 5 Days Qty: 15 RF: 0 potassium chloride [Klor-Con M20] 20 mEq Tablet,Er Particles/Crystals 20 meq PO BIDCM Qty: 60 RF: 0 insulin aspart U-100 [Novolog Flexpen U-100 Insulin] 100 unit/mL (3 mL) insulin pen SUBCUT RF: 0 Primary Care Provider: Wanda Mallory Referrals: Wanda Mallory, [employer] [employer] [Primary Care Provider] - Disposition Disposition: Home, Self Care Discharge Date/Time: 09/05/21 05:03
[2021-09-05] MEDS: oxyCODONE 5 MG Tablet 10 MG PO (05:00)
[2021-09-05 05:01] VITALS: BP 141/91; PULSE 74; RESP 16
== END 2021-09-05 05:03 | disposition home or self-care (01) ==
LOC: ED 04:54
PROVIDERS: Emergency Provider Emergency Medicine; PCP Nurse Practitioner Adult Health; Visit Provider Emergency Medicine
DX: H60.91 Unspecified otitis externa, right ear (principal); J43.9 Emphysema, unspecified; E11.9 Type 2 diabetes mellitus without complications; Z79.4 Long term (current) use of insulin; H92.10 Otorrhea, unspecified ear; I10 Essential (primary) hypertension; Z86.718 Personal history of other venous thrombosis and embolism; Z86.19 Personal history of other infectious and parasitic diseases; F17.210 Nicotine dependence, cigarettes, uncomplicated
CPT/HCPCS: 99283

== ENCOUNTER → 2022-02-14 | Outpatient (CLI) | payer MEDICAID, SELFPAY ==
--- NOTE | 2022-02-14 10:07 | RAD_ITS ---
STUDY: X-RAY CHEST REASON FOR EXAM: Male, 51 years old. PAIN R SHOULDER TECHNIQUE: PA and lateral views of the chest. COMPARISON: Comparison is made with prior study dated 04/26/2021. FINDINGS: The lungs are clear and expanded. There is no demonstrated pleural abnormality. Normal size heart. Normal mediastinum and andie. Normal visualized pulmonary arteries. Normal visualized aortic arch and descending thoracic aorta. Normal visualized thoracic spine. Normal visualized ribs, clavicles, and shoulders. There is no demonstrated abnormality of the visualized soft tissue structures of the upper abdomen. RAD/Chest PA and Lateral IMPRESSION: Normal x-ray examination of the chest. Electronically Signed: Yoni Shelley MD at 13:09 EDT ,
[2022-02-14 10:27] LABS: Absolute Lymphocyte Count 1.63 X10^3/uL (0.83-4.51); Absolute Neutrophil Count 4.3 X10^3/uL (2.0-7.7); Basophil# 0.04 X10^3/uL; Basophil% 0.6 % (0-1); Eosinophil# 0.13 X10^3/uL; Hematocrit 41.4 % (40-54); Hemoglobin 14.3 g/dL (13.0-16.5); Lymphocyte # 1.63 X10^3/ul (0.83-4.51); Lymphocyte % 24.5 % (19-41); Mean Corp Hgb Conc 34.5 g/dL (32-36); Mean Corpuscular Hgb 32.4 pg (27.0-32.0); Mean Corpuscular Volume 93.9 fL (80-94); Mean Platelet Vol. 10.3 fl (6.2-12.0); Monocyte# 0.57 X10^3/uL; Monocyte% 8.6 % (0-10); NRBC Flagged by Analyzer 0 % (0-5); Neutrophil # 4.25 X10^3/uL (2.7-7.7); Platelet Count 148 K/mm3 (150-450); RBC Distribution Width CV 12.1 % (11.6-14.6); RBC Distribution Width SD 42.2 fl (35.1-43.9); Red Blood Count 4.41 M/mm3 (4.6-6.2); White Blood Count 6.6 K/mm3 (4.4-11.0)
[2022-02-14 11:19] LABS: ALB/GLOB Ratio 0.9 RATIO (0.9-2.4); AST(SGOT) 62 U/L (15-37); Alanine Aminotransfer ALT/SGPT 111 U/L (16-61); Albumin, Serum 3.5 g/dL (3.2-5.0); Alkaline Phosphatase 185 U/L (45-117); Anion Gap 4 (5-15); BUN 8 mg/dL (7-18); BUN/Creat Ratio 9.3 RATIO (10-20); Calcium,Total 9.1 mg/dL (8.5-10.1); Chloride 98 mmol/L (98-107); Creatinine, Serum 0.86 mg/dL (0.70-1.30); EST Glomerular Filtration Rate 99 mL/min (>60); Est Glom Filt Rate - Afr Amer 119 mL/min (>60); Globulin 3.9 g/dL (2.2-4.2); Glucose 452 mg/dL (74-106); Potassium 4.2 mmol/L (3.5-5.1); Protein, Total 7.4 g/dL (6.4-8.2); Sodium Level 133 mmol/L (136-145); Thyroid Stim Hormone (TSH) 0.65 uIU/mL (0.358-3.74)
== END | disposition home or self-care (01) ==
LOC: LABSPEC 09:50 → LAB 09:56
PROVIDERS: PCP Nurse Practitioner Adult Health; Referring Provider Family Medicine; Visit Provider Family Medicine
DX: M25.511 Pain in right shoulder (principal); E11.42 Type 2 diabetes mellitus with diabetic polyneuropathy
CPT/HCPCS: 36415; 71046; 80053; 84443; 85025

== ENCOUNTER 2022-08-31 06:51 | Emergency (ER) | payer MEDICAID, SELFPAY ==
[2022-08-31 06:53] VITALS: BP 145/87; PULSE 117; RESP 12; TEMP 37; O2SAT 98; BMI 31.8
[2022-08-31 06:58] VITALS: O2SAT 97
--- NOTE | 2022-08-31 07:03 | EKG12_ITS ---
Test Reason : HYPOGLYCEMIA Blood Pressure : / mmHG Vent. Rate : 101 BPM Atrial Rate : 101 BPM P-R Int : 140 ms QRS Dur : 094 ms QT Int : 352 ms P-R-T Axes : 051 -08 022 degrees QTc Int : 456 ms Sinus tachycardia Otherwise normal ECG Confirmed by WALE ARRIAZA, ALLEN ([id number]), telegraph editor JAGRUTI MARIN ([id number]) on 09/01/2022 2:47:35 PM Referred By: JAMES Confirmed By:ERON ECHEVARRIA MD
--- NOTE | 2022-08-31 07:07 | EDS_ITS ---
HPI History of Present Illness Chief Complaint: Hyperglycemia Informant: patient and spouse/S.O. Narrative Narrative: 2-day history of feeling ill fatigue polyuria polydipsia. Today nausea and vomiting no hematemesis. No fevers. No chest pains or cough. Insulin- dependent diabetic for the past 2 years. Per significant other not take his medications. He decided take a metformin dose this morning. History of chronic lymphedema. Denies CHF history. Denies dysuria. Prior similar symptoms: Yes PFSH [facility] Medical History Acute hyperglycemia Chronic venous stasis Emphysema, unspecified Hepatitis C History of deep venous thrombosis Hyponatremia Lymphedema Nicotine dependence Transaminitis Type 2 diabetes mellitus without complication Home Medications cholecalciferol (vitamin D3) 1,250 mcg (50,000 unit) tablet 1,250 mcg PO MO supplement 04/09/20 [History Last Taken 07/25/21] albuterol sulfate 90 mcg/actuation aerosol inhaler 1 - 2 mcg inhalation Q4H PRN PRN Shortness Of Breath 05/27/21 [History Last Taken 07/26/21] insulin detemir U-100 100 unit/mL (3 mL) subcutaneous pen (Levemir FlexTouch U- 100 Insulin) 30 unit subcut QHS diabetes 05/27/21 [History Last Taken 07/25/21] metformin 1,000 mg tablet 1,000 mg PO BID diabetes 05/27/21 [History Last Taken 07/26/21] furosemide 40 mg tablet 40 mg PO BIDLX #60 tabs 07/29/21 [Rx Last Taken Unknown] oxycodone 5 mg tablet 5 mg PO Q4H PRN PRN Pain Score 4-5 5 days #15 tabs 07/29/21 [Rx Last Taken Unknown] potassium chloride 20 mEq tablet,extended release(part/cryst) (Klor-Con M) 20 meq PO BIDCM #60 tabs 07/29/21 [Rx Last Taken Unknown] ciprofloxacin 0.2 %-hydrocortisone 1 % ear drops,suspension (Cipro HC) 3 drp RIGHT EAR BID 7 days #10 mL 09/05/21 [Rx Last Taken Unknown] insulin aspart U-100 100 unit/mL (3 mL) subcutaneous pen (Novolog FlexPen U-100 Insulin aspart) subcut 09/05/21 [History Last Taken Unknown] oxycodone-acetaminophen 5 mg-325 mg tablet (Endocet) 1 tab PO Q6H PRN pain 3 days #12 tabs 09/05/21 [Rx Last Taken Unknown] Allergy/AdvReac Type Severity Reaction Status Date / Time No Known Allergies Allergy Verified 07/26/21 15:58 Family History Brother Diabetes Sister Cirrhosis Surgical History History of appendectomy History of arthroscopic knee surgery History of bowel resection History of facial surgery History of inguinal hernia repair History of tibial fracture Social History Smoking Status: Current every day smoker tobacco type: cigarettes alcohol intake: never substance use type: does not use caffeine: Yes Type: coffee Number of servings: 1 ROS ROS ED Constitutional Constitutional ED: Denies chills, fever(s) or sweats Eyes Eyes: Denies change in vision ENT ENT ED: Denies dysphagia or sore throat Cardiovascular Cardiovascular: Denies chest pain, leg edema, palpitations or racing heartbeat Respiratory/Chest Respiratory/Chest: Denies cough, dyspnea or dyspnea on exertion Gastrointestinal Gastrointestinal: Reports nausea and vomiting; Denies abdominal pain or diarrhea Genitourinary Genitourinary ED: Reports other; Denies dysuria, hematuria or urinary frequency Musculoskeletal Musculoskeletal: Denies back pain, extremity pain or neck pain Integumentary Denies rash or wounds Neurologic Neurologic: Denies headache(s), paresthesias or weakness Endocrine Endocrinology: Reports polydipsia and polyuria EXAM Physical Exam Const Vital Signs: 08/31/22 06:53 08/31/22 06:58 08/31/22 09:27 Temperature 98.6 F Temperature Source Temporal Pulse Rate 117 H 100 Respiratory Rate 12 16 Respiratory Effort Short of Breath Respiratory Depth Normal Respiratory Pattern Normal Blood Pressure 145/87 H 147/88 H Blood Pressure Mean 106 107 Pulse Ox 98 99 Oxygen Delivery Method Room Air Room Air Room Air 08/31/22 10:29 Temperature Temperature Source Pulse Rate 82 Respiratory Rate 16 Respiratory Effort Respiratory Depth Respiratory Pattern Blood Pressure 138/9 H Blood Pressure Mean Pulse Ox 97 Oxygen Delivery Method Positive well nourished and well developed Constitutional Narrative: Fatigued, nontoxic General Appearance ED: well developed HEENT Reports dry mucous membranes normocephalic and atraumatic Mouth ED: Yes dry mucous membranes Mouth: dry mucous membranes Eyes PERRL, EOMs intact bilaterally and conjunctivae normal General Eye ED: Yes normal appearance of both eyes Neck no lymphadenopathy and supple General: Negative for tenderness Chest Wall Chest: Negative for tenderness Resp normal respiratory effort and normal air movement Effort and Inspection: symmetric chest movement; Negative for respiratory distress Cardio regular rhythm and no murmurs Rate: tachycardic Peripheral Pulses: pulses 2+ throughout GI normal to inspection, nondistended, normoactive bowel sounds and non-tender Palpation: Negative for guarding or rebound tenderness present Back/Spine no CVA tenderness and no thoracic nor lumbar tenderness Extremity normal to inspection Extremity Narrative: Lymphedema lower extremities 1-2+. General Extremety ED: Yes edema; Negative for tenderness General Extremity: edema Neuro oriented x3 and no sensory deficits noted Sensorium / Orientation: awake and alert Skin no rashes or lesions noted and no wounds MDM MDM MDM Narrative Medical decision making narrative: Blood glucose in the 400s. Dry mucosal membranes polyuria or polydipsia. Differential includes hyperglycemia diabetes, diabetic ketoacidosis, viral syndrome, dehydration. Noncompliance with medications. Denies CHF history has chronic lymphedema. IV fluids will be given, Zofran. Diabetic ketoacidosis labs with rule out. 0805: Labs hyperglycemia normal anion gap, Therefore not DKA. Diabetic hyperglycemia his creatinine 0.98. He is receiving fluids. We will clinically reevaluate after treatment. 0855: Clinically feeling better. He states insulin regimen 35 units Lantus at night he takes 15 units of short acting before meals plus sliding scale. I will give him 10 units of short acting insulin who will observe. Considered initial admission however due to stable with no DKA clinically improving, he will be stable for outpatient follow-up. 1015: Recheck glucose 295. Clinically improved. Discussed with patient importance of his insulin and diabetic treatment for prevention. He understands this. He is given follow-up with podiatry due to possible neuropathy for continued follow-up and management. He is also given endocrinology follow-up. All questions were answered. Lab Data Attestation: I reviewed the patient's lab results. Labs: Laboratory Results - last 24 hr 08/31/22 08/31/22 08/31/22 07:04 07:12 07:40 WBC 8.3 RBC 4.93 Hgb 16.0 Hct 47.2 MCV 95.7 H MCH 32.5 H MCHC 33.9 RDW Std Deviation 43.9 RDW Coeff of Tg 12.4 Plt Count 167 MPV 10.7 Immature Gran % (Auto) 0.500 Neut % (Auto) 76.3 H Lymph % (Auto) 13.3 L Day % (Auto) 8.3 Eos % (Auto) 1.2 Baso % (Auto) 0.4 Absolute Neuts (auto) 6.3 Absolute Lymphs (auto) 1.10 Nucleated RBC % 0 Sodium 134 L Potassium 3.6 Chloride 97 L Carbon Dioxide 24.0 Anion Gap 13 BUN 14 Creatinine 0.98 Estim Creat Clear Calc 97.38 Est GFR (MDRD) Af Amer 103 Est GFR (MDRD) Non-Af 85 BUN/Creatinine Ratio 14.3 Glucose 427 H Calcium 9.2 Magnesium 1.9 Urine Color Urine Clarity Urine pH Ur Specific [place] Urine Protein Urine Glucose (UA) Urine Ketones Urine Occult Blood Urine Nitrite Urine Bilirubin Urine Urobilinogen Ur Leukocyte Esterase Urine RBC Urine WBC Ur Squamous Epith Cells Urine Bacteria Urine Mucus Acetone Level POC Glucose 434 H 08/31/22 08/31/22 08/31/22 07:40 07:40 08:04 WBC RBC Hgb Hct MCV MCH MCHC RDW Std Deviation RDW Coeff of Tg Plt Count MPV Immature Gran % (Auto) Neut % (Auto) Lymph % (Auto) Day % (Auto) Eos % (Auto) Baso % (Auto) Absolute Neuts (auto) Absolute Lymphs (auto) Nucleated RBC % Sodium 135 L Potassium 4.1 Chloride 97 L Carbon Dioxide 30.0 Anion Gap 8 BUN 14 Creatinine 0.94 Estim Creat Clear Calc 101.53 Est GFR (MDRD) Af Amer 108 Est GFR (MDRD) Non-Af 89 BUN/Creatinine Ratio 14.9 Glucose 440 H Calcium 9.6 Magnesium Urine Color Yellow Urine Clarity Sl. Cloudy Urine pH 6.5 Ur Specific [place] 1.010 Urine Protein 30 H Urine Glucose (UA) 1000 H Urine Ketones 15 H Urine Occult Blood Negative Urine Nitrite Negative Urine Bilirubin Negative Urine Urobilinogen Normal Ur Leukocyte Esterase 25 H Urine RBC 0 SEEN Urine WBC 0-5 SEEN Ur Squamous Epith Cells 0-5 SEEN Urine Bacteria 0 SEEN Urine Mucus 0 SEEN Acetone Level NEGATIVE POC Glucose 08/31/22 08/31/22 09:19 10:08 WBC RBC Hgb Hct MCV MCH MCHC RDW Std Deviation RDW Coeff of Tg Plt Count MPV Immature Gran % (Auto) Neut % (Auto) Lymph % (Auto) Day % (Auto) Eos % (Auto) Baso % (Auto) Absolute Neuts (auto) Absolute Lymphs (auto) Nucleated RBC % Sodium Potassium Chloride Carbon Dioxide Anion Gap BUN Creatinine Estim Creat Clear Calc Est GFR (MDRD) Af Amer Est GFR (MDRD) Non-Af BUN/Creatinine Ratio Glucose Calcium Magnesium Urine Color Urine Clarity Urine pH Ur Specific [place] Urine Protein Urine Glucose (UA) Urine Ketones Urine Occult Blood Urine Nitrite Urine Bilirubin Urine Urobilinogen Ur Leukocyte Esterase Urine RBC Urine WBC Ur Squamous Epith Cells Urine Bacteria Urine Mucus Acetone Level POC Glucose 318 H 295 H EKG Initial EKG: Attestation: I personally reviewed and interpreted this EKG as follows: Comments: Sinus rate of 101, no ST or T wave changes. Discharge Plan Triage Chief Complaint: Hyperglycemia ED Provider: Guru Lagos Dx/Rx/DC Orders Clinical Impression: Hyperglycemia due to diabetes mellitus, Polydipsia, Polyuria, Noncompliance with medications, Dehydration Instructions: Diabetes: Caring for Your Body, Diabetes: Living Your Life Prescriptions: No Action cholecalciferol (vitamin D3) 1,250 mcg (50,000 unit) tablet 1,250 mcg PO MO metformin 1,000 mg tablet 1,000 mg PO BID albuterol sulfate 90 mcg/actuation HFA aerosol inhaler 1 - 2 mcg INHALATION Q4H PRN PRN (Reason: Shortness Of Breath) Levemir FlexTouch U-100 Insuln 100 unit/mL (3 mL) insulin pen 30 unit SUBCUT QHS furosemide 40 mg Tablet 40 mg PO BIDLX Qty: 60 0RF oxycodone 5 mg Tablet 5 mg PO Q4H PRN PRN (Reason: Pain Score 4-5) 5 Days Qty: 15 0RF potassium chloride [Klor-Con M20] 20 mEq Tablet,Er Particles/Crystals 20 meq PO BIDCM Qty: 60 0RF insulin aspart U-100 [Novolog FlexPen U-100 Insulin] 100 unit/mL (3 mL) insulin pen SUBCUT oxycodone-acetaminophen [Endocet] 5-325 mg tablet 1 tab PO Q6H PRN (Reason: pain) 3 Days Qty: 12 0RF Cipro HC 0.2-1 % drops,suspension 3 drp RIGHT EAR BID 7 Days Qty: 10 0RF Primary Care Provider: Wanda Mallory Referrals: Dio Mishra DPM [Med Staff - Active Staff] - 1-2 Weeks Sherman Read MD [Med Staff - Courtesy Staff] - 1-2 Weeks Wanda Mallory, MARCUS-C [Primary Care Provider] - 3-5 Days Activity Restrictions/Additional Instructions: Your work-up today negative for DKA. Elevated blood glucose. Take your insulin and medication as prescribed for you. Follow-up with your doctor. Follow podi atry due to diabetes for neuropathy evaluation. Return if worsening symptoms. Disposition Disposition: Home, Self Care Discharge Date/Time: 08/31/22 10:30
[2022-08-31 07:25] LABS: Bedside Glucose 434 mg/dL (74-106)
[2022-08-31 07:44] LABS: Anion Gap 13 (5-15); BUN 14 mg/dL (7-18); BUN/Creat Ratio 14.3 RATIO (10-20); Calcium,Total 9.2 mg/dL (8.5-10.1); Chloride 97 mmol/L (98-107); Creatinine, Serum 0.98 mg/dL (0.70-1.30); EST Glomerular Filtration Rate 85 mL/min (>60); Est Glom Filt Rate - Afr Amer 103 mL/min (>60); Estimated Creatinine Clearance 97.38 ml/min; Glucose 427 mg/dL (74-106); Magnesium 1.9 mg/dL (1.6-2.6); Potassium 3.6 mmol/L (3.5-5.1); Sodium Level 134 mmol/L (136-145)
[2022-08-31] MEDS: Ondansetron 4 MG/2 ML Vial IV (07:44)
[2022-08-31] MEDS: 0.9% Normal Saline 1,000 ML 999 ML IV ×2 (07:44→09:16)
[2022-08-31 08:01] LABS: Absolute Neutrophil Count 6.3 X10^3/uL (2.0-7.7); Basophil# 0.03 X10^3/uL; Basophil% 0.4 % (0-1); Eosinophils% 1.2 % (0-5); Hematocrit 47.2 % (40-54); Lymphocyte % 13.3 % (19-41); Mean Corp Hgb Conc 33.9 g/dL (32-36); Mean Corpuscular Hgb 32.5 pg (27.0-32.0); Mean Corpuscular Volume 95.7 fL (80-94); Mean Platelet Vol. 10.7 fl (6.2-12.0); Monocyte# 0.69 X10^3/uL; Monocyte% 8.3 % (0-10); NRBC Flagged by Analyzer 0 % (0-5); Neutrophil # 6.31 X10^3/uL (2.7-7.7); Neutrophil % 76.3 % (47-70); Platelet Count 167 K/mm3 (150-450); RBC Distribution Width CV 12.4 % (11.6-14.6); RBC Distribution Width SD 43.9 fl (35.1-43.9); Red Blood Count 4.93 M/mm3 (4.6-6.2); White Blood Count 8.3 K/mm3 (4.4-11.0)
[2022-08-31 08:03] LABS: Anion Gap 8 (5-15); BUN 14 mg/dL (7-18); BUN/Creat Ratio 14.9 RATIO (10-20); Calcium,Total 9.6 mg/dL (8.5-10.1); Chloride 97 mmol/L (98-107); Creatinine, Serum 0.94 mg/dL (0.70-1.30); EST Glomerular Filtration Rate 89 mL/min (>60); Est Glom Filt Rate - Afr Amer 108 mL/min (>60); Estimated Creatinine Clearance 101.53 ml/min; Glucose 440 mg/dL (74-106); Potassium 4.1 mmol/L (3.5-5.1); Sodium Level 135 mmol/L (136-145)
[2022-08-31 08:10] LABS: Bacteria 0 SEEN /hpf (None Seen); Mucous, Urine 0 SEEN /hpf (<or=2+); Red Blood Cells-Urine 0 SEEN /hpf (0-5)
[2022-08-31 08:12] LABS: Color, Urine Yellow (Yellow); Glucose, Dipstick 1000 mg/dl (Normal); Ketone-Dipstick 15 mg/dl (Negative); Leukocyte Esterase-Dipstick 25 /ul (Negative); Nitrite-Dipstick Negative (Negative); Occult Blood-Urine Negative /ul (Negative); Protein-Dipstick 30 mg/dl (Negative); Urine Bilirubin Dipstick Negative (Negative); Urine Clarity Sl. Cloudy (Clear); Urine Urobilinogen Normal (Normal); Urine pH 6.5 (5.0 - 8.0)
[2022-08-31 08:19] LABS: Squamous Epithelial Cells - UA 0-5 SEEN /hpf (0-5); White Blood Cells 0-5 SEEN /hpf (0-5)
[2022-08-31] MEDS: Insulin Lispro 100 UNIT/ML INSULN.PEN 10 UNIT SC (09:13)
[2022-08-31 09:27] VITALS: BP 147/88; PULSE 100; RESP 16; O2SAT 99
[2022-08-31 09:40] LABS: Bedside Glucose 318 mg/dL (74-106)
[2022-08-31 10:29] VITALS: BP 138/9; PULSE 82; RESP 16; O2SAT 97
[2022-08-31 10:30] LABS: Bedside Glucose 295 mg/dL (74-106)
== END 2022-08-31 10:30 | disposition home or self-care (01) ==
PROVIDERS: Emergency Provider Emergency Medicine; PCP Nurse Practitioner Adult Health; Visit Provider Emergency Medicine
DX: E11.65 Type 2 diabetes mellitus with hyperglycemia (principal); J43.9 Emphysema, unspecified; Z79.4 Long term (current) use of insulin; E86.0 Dehydration; Z91.14 Patient's other noncompliance with medication regimen; R11.2 Nausea with vomiting, unspecified; Z79.899 Other long term (current) drug therapy; F17.210 Nicotine dependence, cigarettes, uncomplicated; I89.0 Lymphedema, not elsewhere classified
CPT/HCPCS: 96361; 96374; 80048; 81001; 82009; 82962; 83735; 85025; 87811; 93005; 99284; J7030; A4216; J2405

== ENCOUNTER 2022-09-11 00:44 | Emergency (ER) | payer MEDICAID, SELFPAY ==
[2022-09-11 00:44] VITALS: BP 136/74; PULSE 94; RESP 20; TEMP 36.6; O2SAT 92; BMI 33.5
--- NOTE | 2022-09-11 00:50 | EKG12_ITS ---
Test Reason : CP Blood Pressure : / mmHG Vent. Rate : 087 BPM Atrial Rate : 087 BPM P-R Int : 146 ms QRS Dur : 104 ms QT Int : 380 ms P-R-T Axes : 047 -02 029 degrees QTc Int : 457 ms Normal sinus rhythm Minimal voltage criteria for LVH, may be normal variant ( R in aVL ) Nonspecific T wave abnormality Abnormal ECG Confirmed by LEI ARRIAZA, ANTONIO ([id number]), writer editor KALEY MENEZES ([id number]) on 09/12/2022 10:06:23 AM Referred By: Confirmed By:ANTONIO ODOM MD
--- NOTE | 2022-09-11 01:17 | RAD_ITS ---
STUDY: X-RAY CHEST REASON FOR EXAM: Male, 52 years old. Sob/chest pain TECHNIQUE: Single AP portable view of the chest. COMPARISON: February 14, 2022 chest x-ray FINDINGS: Lung markings are stable when compared to prior study. There is no demonstrated pleural abnormality. Normal size heart. Normal mediastinum and andie. Normal visualized pulmonary arteries. Normal visualized aortic arch and descending thoracic aorta. Normal visualized thoracic spine. Normal visualized ribs, clavicles, and shoulders. There is no demonstrated abnormality of the visualized soft tissue structures of the upper abdomen. RAD/Chest 1 View (Portable) IMPRESSION: Stable chest no definitive acute focal infiltrate. Electronically Signed: Deborah Hayden MD at 2:13 EST ,
[2022-09-11] MEDS: Morphine 4 MG/ML Syringe IV (01:22)
[2022-09-11 01:23] VITALS: O2SAT 99
[2022-09-11 01:27] LABS: Absolute Lymphocyte Count 1.13 X10^3/uL (0.83-4.51); Basophil# 0.03 X10^3/uL; Basophil% 0.4 % (0-1); Eosinophil# 0.15 X10^3/uL; Eosinophils% 2.2 % (0-5); Hematocrit 44.6 % (40-54); Hemoglobin 15.7 g/dL (13.0-16.5); Lymphocyte # 1.13 X10^3/ul (0.83-4.51); Lymphocyte % 16.2 % (19-41); Mean Corp Hgb Conc 35.2 g/dL (32-36); Mean Corpuscular Hgb 33.3 pg (27.0-32.0); Mean Corpuscular Volume 94.7 fL (80-94); Mean Platelet Vol. 11.9 fl (6.2-12.0); Monocyte# 0.62 X10^3/uL; Monocyte% 8.9 % (0-10); NRBC Flagged by Analyzer 0 % (0-5); Neutrophil # 5.01 X10^3/uL (2.7-7.7); Neutrophil % 71.9 % (47-70); POSITIVE COUNT YES; Platelet Count 91 K/mm3 (150-450); RBC Distribution Width CV 12.1 % (11.6-14.6); RBC Distribution Width SD 42.5 fl (35.1-43.9); Red Blood Count 4.71 M/mm3 (4.6-6.2)
[2022-09-11 01:29] LABS: Differential Indicated SCAN CRITERIA MET
[2022-09-11 01:44] LABS: Platelet Estimate MOD DEC (ADEQ)
[2022-09-11 01:47] LABS: Anion Gap 9 (5-15); BNP,B-Type NATRIURETIC PEPTIDE 7.3 pg/mL (0-100); BUN 12 mg/dL (7-18); BUN/Creat Ratio 13.7 RATIO (10-20); Calcium,Total 9.1 mg/dL (8.5-10.1); Chloride 96 mmol/L (98-107); Creatinine, Serum 0.88 mg/dL (0.70-1.30); EST Glomerular Filtration Rate 96 mL/min (>60); Est Glom Filt Rate - Afr Amer 117 mL/min (>60); Estimated Creatinine Clearance 105.33 ml/min; Glucose 482 mg/dL (74-106); Magnesium 1.8 mg/dL (1.6-2.6); Potassium 3.8 mmol/L (3.5-5.1); Sodium Level 134 mmol/L (136-145); Troponin-I HS 6 pg/mL (3.0-78.0)
[2022-09-11 03:27] LABS: Troponin-I HS 8 pg/mL (3.0-78.0)
[2022-09-11 03:41] VITALS: BP 115/61
--- NOTE | 2022-09-11 04:06 | EDS_ITS ---
HPI History of Present Illness Chief Complaint: Shortness of Breath Narrative Narrative: Patient is a 52-year-old male with history of diabetes and nicotine dependence. He states he been having increased swelling to his legs and some increased shortness of breath. He denies any fevers or chills or known sick contact. He states because of his increasing symptoms he was worried about possible infection or derangement to his diabetes and therefore comes in for evaluation. [facility] Medical History Acute hyperglycemia Chronic venous stasis Emphysema, unspecified Hepatitis C History of deep venous thrombosis Hyponatremia Lymphedema Nicotine dependence Transaminitis Type 2 diabetes mellitus without complication Home Medications cholecalciferol (vitamin D3) 1,250 mcg (50,000 unit) tablet 1,250 mcg PO MO supplement 04/09/20 [History Last Taken 07/25/21] albuterol sulfate 90 mcg/actuation aerosol inhaler 1 - 2 mcg inhalation Q4H PRN PRN Shortness Of Breath 05/27/21 [History Last Taken 07/26/21] insulin detemir U-100 100 unit/mL (3 mL) subcutaneous pen (Levemir FlexTouch U- 100 Insulin) 30 unit subcut QHS diabetes 05/27/21 [History Last Taken 07/25/21] metformin 1,000 mg tablet 1,000 mg PO BID diabetes 05/27/21 [History Last Taken 07/26/21] furosemide 40 mg tablet 40 mg PO BIDLX #60 tabs 07/29/21 [Rx Last Taken Unknown] oxycodone 5 mg tablet 5 mg PO Q4H PRN PRN Pain Score 4-5 5 days #15 tabs 07/29/21 [Rx Last Taken Unknown] potassium chloride 20 mEq tablet,extended release(part/cryst) (Klor-Con M) 20 meq PO BIDCM #60 tabs 07/29/21 [Rx Last Taken Unknown] ciprofloxacin 0.2 %-hydrocortisone 1 % ear drops,suspension (Cipro HC) 3 drp RIGHT EAR BID 7 days #10 mL 09/05/21 [Rx Last Taken Unknown] insulin aspart U-100 100 unit/mL (3 mL) subcutaneous pen (Novolog FlexPen U-100 Insulin aspart) subcut 09/05/21 [History Last Taken Unknown] oxycodone-acetaminophen 5 mg-325 mg tablet (Endocet) 1 tab PO Q6H PRN pain 3 days #12 tabs 09/05/21 [Rx Last Taken Unknown] desonide 0.05 % topical cream 1 applic topical TID PRN itching #60 grams 09/11/22 [Rx Last Taken Unknown] Allergy/AdvReac Type Severity Reaction Status Date / Time No Known Allergies Allergy Verified 07/26/21 15:58 Family History Brother Diabetes Sister Cirrhosis Surgical History History of appendectomy History of arthroscopic knee surgery History of bowel resection History of facial surgery History of inguinal hernia repair History of tibial fracture Social History Smoking Status: Current every day smoker tobacco type: cigarettes alcohol intake: never substance use type: does not use caffeine: Yes Type: coffee Number of servings: 1 ROS ROS ED Constitutional Constitutional ED: Denies chills or fever(s) ENT ENT ED: Denies sore throat Cardiovascular Cardiovascular: Denies chest pain Respiratory/Chest Respiratory/Chest: Reports cough and dyspnea Gastrointestinal Gastrointestinal: Denies abdominal pain, diarrhea, nausea or vomiting Genitourinary Genitourinary ED: Denies dysuria Musculoskeletal Musculoskeletal: Reports other Details: Positive leg edema ; Denies myalgias Integumentary Denies rash Neurologic Neurologic: Denies headache(s) Hematologic/Lymphatic Hematologic/Lymphatic: Denies easy bleeding or easy bruising EXAM Physical Exam Const Vital Signs: 09/11/22 00:44 09/11/22 01:23 09/11/22 03:41 Temperature 97.9 F Temperature Source Oral Pulse Rate 94 Respiratory Rate 20 H Respiratory Effort Normal Non-Labored Respiratory Depth Normal Respiratory Pattern Normal Blood Pressure 136/74 H 115/61 Blood Pressure Mean 94 79 Pulse Ox 92 Oxygen Delivery Method Room Air Room Air Positive well nourished and well developed General Appearance ED: well developed HEENT Reports moist mucous membranes HEENT Narrative: No tongue or lip swelling no oral lesions no airway edema or compromise Eyes PERRL and EOMs intact bilaterally Neck supple and no JVD Chest Wall palpation of chest normal Resp normal respiratory effort Resp Narrative: Breath sounds are diminished throughout with faint expiratory wheeze in the bilateral bases but otherwise no nasal flaring retractions tachypnea or accesso ry muscle use Cardio regular rate and regular rhythm GI normal to inspection, nondistended, normoactive bowel sounds, non-tender, non-distended and no masses GI Narrative: No voluntary guarding or rigidity no pulsatile mass or fluid wave Auscultation: normoactive bowel sounds Palpation: soft Extremity Extremity Narrative: Patient has +2 pitting edema to the bilateral lower extremities that are equal and symmetric with negative Homans' sign bilaterally Neuro oriented x3 and CN's II-XII intact bilaterally Sensorium / Orientation: alert Psych mental status grossly normal Skin Skin Narrative: Patient does have a diffuse erythematous blanchable urticarial rash to the neck arms chest and back consistent with acute allergic reaction with no involvement of the palms or soles MDM MDM MDM Narrative Medical decision making narrative: Patient presented to the ER with stable vitals and in no acute respiratory distress. He was worried about his edema leading to heart failure and possibly worsening of his diabetes. Secondary to these concerns I did elect to perform basic laboratory studies to rule out congestive heart failure acute kidney injury anemia or electrolyte disturbance. Labs revealed no clinically significant finding other than his sugar of 482 but he has no changes to suggest DKA or HHS. Chest x-ray revealed no pleural effusions or pulmonary edema which fits his proBNP of 7. He does have a diffuse rash that is more allergic in nature and as it is not infectious or causing respiratory distress I do not feel there is need for work-up for this. At this time as signs of acute coronary syndrome DKA HHS acute kidney injury or congestive heart failure are not apparent on today's work-up and vitals are stable he is otherwise safe for discharge Lab Data Attestation: I reviewed the patient's lab results. Labs: Laboratory Results - last 24 hr 09/11/22 09/11/22 09/11/22 01:05 01:05 01:05 WBC 7.0 RBC 4.71 Hgb 15.7 Hct 44.6 MCV 94.7 H MCH 33.3 H MCHC 35.2 RDW Std Deviation 42.5 RDW Coeff of Tg 12.1 Plt Count 91 L MPV 11.9 Immature Gran % (Auto) 0.400 Neut % (Auto) 71.9 H Lymph % (Auto) 16.2 L [place] % (Auto) 8.9 Eos % (Auto) 2.2 Baso % (Auto) 0.4 Absolute Neuts (auto) 5.0 Absolute Lymphs (auto) 1.13 Nucleated RBC % 0 Platelet Estimate MOD DEC Sodium 134 L Potassium 3.8 Chloride 96 L Carbon Dioxide 29.0 Anion Gap 9 BUN 12 Creatinine 0.88 Estim Creat Clear Calc 105.33 Est GFR (MDRD) Af Amer 117 Est GFR (MDRD) Non-Af 96 BUN/Creatinine Ratio 13.7 Glucose 482 H* Calcium 9.1 Magnesium 1.8 Troponin I High Sens 6 B-Natriuretic Peptide 7.3 09/11/22 03:05 WBC RBC Hgb Hct MCV MCH MCHC RDW Std Deviation RDW Coeff of Tg Plt Count MPV Immature Gran % (Auto) Neut % (Auto) Lymph % (Auto) [place] % (Auto) Eos % (Auto) Baso % (Auto) Absolute Neuts (auto) Absolute Lymphs (auto) Nucleated RBC % Platelet Estimate Sodium Potassium Chloride Carbon Dioxide Anion Gap BUN Creatinine Estim Creat Clear Calc Est GFR (MDRD) Af Amer Est GFR (MDRD) Non-Af BUN/Creatinine Ratio Glucose Calcium Magnesium Troponin I High Sens 8 B-Natriuretic Peptide Radiography Diagnostic Testing: Clinical Impression(s) from Imaging Studies Chest X-Ray 09/11/22 01:17 IMPRESSION: Stable chest no definitive acute focal infiltrate. Electronically Signed: Deborah Hayden MD at 2:13 EST Reading Location ID and State: [address] [place] [address] Tel , Service support , Chest x-ray as interpreted by the emergency medicine physician reveals chronic/stable findings without acute infiltrate pneumothorax or pleural effusion Discharge Plan Triage Chief Complaint: Shortness of Breath ED Provider: Scotty Wisdom Dx/Rx/DC Orders Clinical Impression: Lymphedema, Hyperglycemia, Insulin dependent diabetes mellitus, Urticaria Instructions: Diabetes: Caring for Your Body, ED Lymphedema Prescriptions: New desonide 0.05 % cream 1 applic topical TID PRN (Reason: itching) Qty: 60 2RF No Action cholecalciferol (vitamin D3) 1,250 mcg (50,000 unit) tablet 1,250 mcg PO MO metformin 1,000 mg tablet 1,000 mg PO BID albuterol sulfate 90 mcg/actuation HFA aerosol inhaler 1 - 2 mcg INHALATION Q4H PRN PRN (Reason: Shortness Of Breath) Levemir FlexTouch U-100 Insuln 100 unit/mL (3 mL) insulin pen 30 unit SUBCUT QHS furosemide 40 mg Tablet 40 mg PO BIDLX Qty: 60 0RF oxycodone 5 mg Tablet 5 mg PO Q4H PRN PRN (Reason: Pain Score 4-5) 5 Days Qty: 15 0RF potassium chloride [Klor-Con M20] 20 mEq Tablet,Er Particles/Crystals 20 meq PO BIDCM Qty: 60 0RF insulin aspart U-100 [Novolog FlexPen U-100 Insulin] 100 unit/mL (3 mL) insulin pen SUBCUT oxycodone-acetaminophen [Endocet] 5-325 mg tablet 1 tab PO Q6H PRN (Reason: pain) 3 Days Qty: 12 0RF Cipro HC 0.2-1 % drops,suspension 3 drp RIGHT EAR BID 7 Days Qty: 10 0RF Primary Care Provider: Wanda Mallory Referrals: Wanda Mallory, [facility] [Primary Care Provider] - Activity Restrictions/Additional Instructions: Your work-up today showed your blood sugar is elevated but there are no signs of internal derangement from this. You also have no signs of active heart disease or congestive heart failure indicating your leg swelling is from lymphedema. Please follow-up with your family doctor to discuss further treatment options regarding your symptoms and return to the ER should you have any further concerns Disposition Disposition: Home, Self Care Discharge Date/Time: 09/11/22 04:24
[2022-09-11 04:22] VITALS: BP 115/60; PULSE 78; RESP 18
== END 2022-09-11 04:24 | disposition home or self-care (01) ==
PROVIDERS: Emergency Provider Emergency Medicine; PCP Nurse Practitioner Adult Health; Visit Provider Emergency Medicine
DX: E11.65 Type 2 diabetes mellitus with hyperglycemia (principal); J43.9 Emphysema, unspecified; I89.0 Lymphedema, not elsewhere classified; L50.9 Urticaria, unspecified; R06.02 Shortness of breath
CPT/HCPCS: 71045; 80048; 83735; 83880; 84484; 85025; 93005; 96374; 99283; A4216

== ENCOUNTER 2022-10-28 04:13 | Emergency (ER) | payer MEDICAID, SELFPAY ==
[2022-10-28 04:14] VITALS: BP 150/84; PULSE 134; RESP 18; TEMP 36.5; O2SAT 90; BMI 31.4
[2022-10-28 04:41] LABS: Bedside Glucose 363 mg/dL (74-106)
[2022-10-28] MEDS: LORazepam 1 MG Tablet PO (05:10)
[2022-10-28 05:44] LABS: Absolute Lymphocyte Count 0.93 X10^3/uL (0.83-4.51); Absolute Neutrophil Count 10.5 X10^3/uL (2.0-7.7); Basophil# 0.05 X10^3/uL; Basophil% 0.4 % (0-1); Eosinophil# 0.03 X10^3/uL; Eosinophils% 0.2 % (0-5); Hemoglobin 14.7 g/dL (13.0-16.5); Lymphocyte # 0.93 X10^3/ul (0.83-4.51); Lymphocyte % 7.5 % (19-41); Mean Corp Hgb Conc 34.2 g/dL (32-36); Mean Corpuscular Hgb 32.7 pg (27.0-32.0); Mean Corpuscular Volume 95.6 fL (80-94); Mean Platelet Vol. 10.5 fl (6.2-12.0); Monocyte# 0.89 X10^3/uL; Monocyte% 7.2 % (0-10); NRBC Flagged by Analyzer 0 % (0-5); Neutrophil # 10.46 X10^3/uL (2.7-7.7); Neutrophil % 84.1 % (47-70); Platelet Count 146 K/mm3 (150-450); RBC Distribution Width CV 12.4 % (11.6-14.6); RBC Distribution Width SD 43.5 fl (35.1-43.9); White Blood Count 12.4 K/mm3 (4.4-11.0)
[2022-10-28 05:55] LABS: Allen Test Positive; Base Excess 2 mmol/L (-2 to +2); Blood Gas Specimen Type ART; O2 Delivery Device Room Air; PO2 71 mmHG (75-100); SITE R Radial; SO2 95 % (95-99); Total Carbon Dioxide 27 mmol/L; pCO2 38.9 mmHg (35-45); pH 7.43 (7.35-7.45)
[2022-10-28 05:58] LABS: Anion Gap 8 (5-15); BUN 16 mg/dL (7-18); BUN/Creat Ratio 19.7 RATIO (10-20); Calcium,Total 9.1 mg/dL (8.5-10.1); Chloride 102 mmol/L (98-107); Creatinine, Serum 0.81 mg/dL (0.70-1.30); EST Glomerular Filtration Rate 105 mL/min (>60); Est Glom Filt Rate - Afr Amer 127 mL/min (>60); Estimated Creatinine Clearance 114.43 ml/min; Glucose 350 mg/dL (74-106); Potassium 3.4 mmol/L (3.5-5.1); Sodium Level 135 mmol/L (136-145)
[2022-10-28 06:24] LABS: Acetaminophen (Tylenol) Level < 2.0 ug/mL (10.0-30.0); Alcohol, Blood (Medical)-Serum < 3.0 mg/dL; Salicylate < 1.7 mg/dL (2.8-20.0)
[2022-10-28 07:16] LABS: Amphetamine Urine VISTA POSITIVE (<1000 ng/mL); Barbiturate Urine VISTA NEGATIVE (< 200 ng/mL); Benzodiazepine Urine VISTA NEGATIVE (< 200 ng/mL); Cocaine Urine VISTA NEGATIVE (< 300 ng/mL); Ecstacy Urine VISTA NEGATIVE (< 500 ng/mL); Methadone Urine VISTA NEGATIVE (< 300 ng/mL); PCP Urine VISTA NEGATIVE (< 25 ng/mL); THC Urine VISTA NEGATIVE (< 50 ng/mL); Vista UDS pH Range 7
--- NOTE | 2022-10-28 07:36 | EX.ED.DYSGE1 ---
HPI History of Present Illness Chief Complaint: Anxiety Narrative Narrative: Patient is a 52-year-old male who states he went out this evening with some acquaintances. He states that he was drinking a little bit of alcohol and he smoked what he thought was marijuana. He states after this he started feeling nervous and anxious and is concerned that he may have ingested something other than marijuana and secondary to this comes in for evaluation. He also is a insulin-dependent diabetic and has concerned that he is in DKA. [facility] Medical History Acute hyperglycemia Chronic venous stasis Emphysema, unspecified Hepatitis C History of deep venous thrombosis Hyponatremia Lymphedema Nicotine dependence Transaminitis Type 2 diabetes mellitus without complication Home Medications cholecalciferol (vitamin D3) 1,250 mcg (50,000 unit) tablet 1,250 mcg PO MO supplement 04/09/20 [History Last Taken 07/25/21] albuterol sulfate 90 mcg/actuation aerosol inhaler 1 - 2 mcg inhalation Q4H PRN PRN Shortness Of Breath 05/27/21 [History Last Taken 07/26/21] insulin detemir U-100 100 unit/mL (3 mL) subcutaneous pen (Levemir FlexTouch U-100 Insulin) 30 unit subcut QHS diabetes 05/27/21 [History Last Taken 07/25/21] metformin 1,000 mg tablet 1,000 mg PO BID diabetes 05/27/21 [History Last Taken 07/26/21] furosemide 40 mg tablet 40 mg PO BIDLX #60 tabs 07/29/21 [Rx Last Taken Unknown] potassium chloride 20 mEq tablet,extended release(part/cryst) (Klor-Con M) 20 meq PO BIDCM #60 tabs 07/29/21 [Rx Last Taken Unknown] insulin aspart U-100 100 unit/mL (3 mL) subcutaneous pen (Novolog FlexPen U-100 Insulin aspart) subcut 09/05/21 [History Last Taken Unknown] desonide 0.05 % topical cream 1 applic topical TID PRN itching #60 grams 09/11/22 [Rx Last Taken Unknown] Allergy/AdvReac Type Severity Reaction Status Date / Time No Known Allergies Allergy Verified 10/28/22 04:19 Family History Brother Diabetes Sister Cirrhosis Surgical History History of appendectomy History of arthroscopic knee surgery History of bowel resection History of facial surgery History of inguinal hernia repair History of tibial fracture Social History Smoking Status: Current every day smoker tobacco type: cigarettes alcohol intake: never substance use type: does not use caffeine: Yes Type: coffee Number of servings: 1 ROS ROS ED Constitutional Constitutional ED: Denies chills or fever(s) Eyes Eyes: Denies change in vision ENT ENT ED: Denies sore throat Cardiovascular Cardiovascular: Reports palpitations and racing heartbeat; Denies chest pain Respiratory/Chest Respiratory/Chest: Denies cough or dyspnea Gastrointestinal Gastrointestinal: Reports diarrhea; Denies abdominal pain, nausea or vomiting Genitourinary Genitourinary ED: Denies dysuria Musculoskeletal Musculoskeletal: Denies myalgias Integumentary Denies rash Neurologic Neurologic: Denies headache(s) Psychiatric Psychiatric: Reports anxiety; Denies suicidal ideation or suicidal thoughts Hematologic/Lymphatic Hematologic/Lymphatic: Denies easy bleeding or easy bruising EXAM Physical Exam Const Vital Signs: 10/28/22 04:14 Temperature 97.7 F L Temperature Source Temporal Pulse Rate 134 H Respiratory Rate 18 Blood Pressure 150/84 H Blood Pressure Mean 106 Pulse Ox 90 Oxygen Delivery Method Room Air Positive well nourished, well developed and obese General Appearance ED: well developed Nutritional Appearance: obese HEENT Reports moist mucous membranes Eyes PERRL and EOMs intact bilaterally Neck supple Neck Narrative: No nuchal rigidity or meningeal signs noted Chest Wall palpation of chest normal Resp normal respiratory effort and clear to auscultation bilaterally Cardio regular rhythm Rate: tachycardic and other Other Details: Radial pulses are plus 2 out of 4 bilaterally are equal and symmetric GI non-tender and non-distended GI Narrative: Abdomen is soft nontender and nondistended with hyperactive bowel sounds no voluntary guarding or rigidity no pulsatile mass Auscultation: hyperactive bowel sounds Palpation: soft Extremity normal to inspection Neuro oriented x3 and CN's II-XII intact bilaterally Sensorium / Orientation: alert Psych Psych Narrative: Patient has a nervous/anxious affect without homicidal or suicidal ideations Skin no rashes or lesions noted MDM MDM MDM Narrative Medical decision making narrative: Patient presented to the ER slightly hypertensive and tachycardic. He is very nervous and anxious and has concern he may have ingested an illicit substance. He also has concern that he may be developing DKA because he is a diabetic and has been in the past. At this time differential includes illicit drug ingestion/unintentional overdose versus acute alcohol intoxication panic attack hyperglycemia or DKA or HHS. Secondary to these concerns basic blood work was obtained. Patient's white count is slightly elevated at 12.4 which is nonspecific his glucose is elevated at 350 however his bicarb is normal and his anion gap is not elevated and his pH is normal going against DKA and his serum osmolality level is 298 going against HHS. Patient's alcohol value is normal there is no Tylenol or aspirin ingested but he does test positive for methamphetamines which would correlate with the hypertension and tachycardia as well as anxiety symptoms. At this time he is not homicidal or suicidal he is not in DKA or HHS and therefore he does not need admitted to the hospital secondary to the unintentional methamphetamine ingestion. Patient was advised he needs to allow the drug to metabolize from his system but there is no life-threatening changes associated with this and therefore he is safe for discharge. History & Record Review Discussion w/independent historian: Patient Lab Data Attestation: I reviewed the patient's lab results. Labs: Laboratory Results - last 24 hr 10/28/22 10/28/22 10/28/22 04:18 05:35 05:35 WBC 12.4 H RBC 4.50 L Hgb 14.7 Hct 43.0 MCV 95.6 H MCH 32.7 H MCHC 34.2 RDW Std Deviation 43.5 RDW Coeff of Tg 12.4 Plt Count 146 L MPV 10.5 Immature Gran % (Auto) 0.600 Neut % (Auto) 84.1 H Lymph % (Auto) 7.5 L [place] % (Auto) 7.2 Eos % (Auto) 0.2 Baso % (Auto) 0.4 Absolute Neuts (auto) 10.5 H Absolute Lymphs (auto) 0.93 Nucleated RBC % 0 Sodium Potassium Chloride Carbon Dioxide Anion Gap BUN Creatinine Estim Creat Clear Calc Est GFR (MDRD) Af Amer Est GFR (MDRD) Non-Af BUN/Creatinine Ratio Glucose Calcium Salicylates < 1.7 L Urine Opiates Screen Urine Methadone Screen Acetaminophen < 2.0 L Ur Barbiturates Screen Ur Phencyclidine Scrn Ur Amphetamines Screen MDMA (Ecstasy) Screen U Benzodiazepines Scrn Urine Cocaine Screen U Cannabinoids Screen Ur Drug Screen Comment Ethyl Alcohol < 3.0 POC Glucose 363 H 10/28/22 10/28/22 05:35 06:40 WBC RBC Hgb Hct MCV MCH MCHC RDW Std Deviation RDW Coeff of Tg Plt Count MPV Immature Gran % (Auto) Neut % (Auto) Lymph % (Auto) [place] % (Auto) Eos % (Auto) Baso % (Auto) Absolute Neuts (auto) Absolute Lymphs (auto) Nucleated RBC % Sodium 135 L Potassium 3.4 L Chloride 102 Carbon Dioxide 25.0 Anion Gap 8 BUN 16 Creatinine 0.81 Estim Creat Clear Calc 114.43 Est GFR (MDRD) Af Amer 127 Est GFR (MDRD) Non-Af 105 BUN/Creatinine Ratio 19.7 Glucose 350 H Calcium 9.1 Salicylates Urine Opiates Screen NEGATIVE Urine Methadone Screen NEGATIVE Acetaminophen Ur Barbiturates Screen NEGATIVE Ur Phencyclidine Scrn NEGATIVE Ur Amphetamines Screen POSITIVE H MDMA (Ecstasy) Screen NEGATIVE U Benzodiazepines Scrn NEGATIVE Urine Cocaine Screen NEGATIVE U Cannabinoids Screen NEGATIVE Ur Drug Screen Comment Ethyl Alcohol POC Glucose ABG Data ABG results: ABG 10/28/22 05:48 Specimen Type ART Sample Site R Radial pH 7.43 Bicarbonate Actual 26.0 Total CO2 27 Base Excess 2 O2 Saturation 95 ABG pCO2 38.9 ABG pO2 71 L Wilmer Test Positive O2 Delivery Device Room Air Discharge Plan Triage Chief Complaint: Anxiety ED Provider: Scotty Wisdom Dx/Rx/DC Orders Clinical Impression: Exposure to methamphetamine, Insulin dependent diabetes mellitus Instructions: Meth Abuse Addiction Prescriptions: No Action cholecalciferol (vitamin D3) 1,250 mcg (50,000 unit) tablet 1,250 mcg PO MO metformin 1,000 mg tablet 1,000 mg PO BID albuterol sulfate 90 mcg/actuation HFA aerosol inhaler 1 - 2 mcg INHALATION Q4H PRN PRN (Reason: Shortness Of Breath) Levemir FlexTouch U-100 Insuln 100 unit/mL (3 mL) insulin pen 30 unit SUBCUT QHS furosemide 40 mg Tablet 40 mg PO BIDLX Qty: 60 0RF potassium chloride [Klor-Con M20] 20 mEq Tablet,Er Particles/Crystals 20 meq PO BIDCM Qty: 60 0RF insulin aspart U-100 [Novolog FlexPen U-100 Insulin] 100 unit/mL (3 mL) insulin pen SUBCUT desonide 0.05 % cream 1 applic topical TID PRN (Reason: itching) Qty: 60 2RF Primary Care Provider: Wanda Mallory Referrals: Wanda Mallory, [employer] [Primary Care Provider] - Activity Restrictions/Additional Instructions: You were given methamphetamine this evening which caused a spike your blood pressure as well as increased anxiety. This is not life-threatening and there is no acute antidote for it. It will take hours for the medication to metabolize out of your system. There were no signs of diabetic ketoacidosis on today's evaluation. Please continue all of your medication as previously directed and return to the ER should you have any further concerns. Disposition Disposition: Home, Self Care Discharge Date/Time: 10/28/22 08:17
== END 2022-10-28 08:17 | disposition home or self-care (01) ==
PROVIDERS: Emergency Provider Emergency Medicine; PCP Nurse Practitioner Adult Health; Visit Provider Emergency Medicine
DX: T43.651A Poisoning by methamphetamines accidental (unintentional), initial encounter (principal); J43.9 Emphysema, unspecified; E11.65 Type 2 diabetes mellitus with hyperglycemia; Z79.4 Long term (current) use of insulin; F41.9 Anxiety disorder, unspecified; R00.0 Tachycardia, unspecified; I10 Essential (primary) hypertension; R19.7 Diarrhea, unspecified; E66.9 Obesity, unspecified; F17.210 Nicotine dependence, cigarettes, uncomplicated; Z79.84 Long term (current) use of oral hypoglycemic drugs; Z79.899 Other long term (current) drug therapy
CPT/HCPCS: 36415; 36600; 80048; 80307; 80329; 82077; 82803; 82962; 85025; 99283; G0480

== ENCOUNTER 2023-01-03 13:41 | Emergency (ER) | payer MEDICAID, SELFPAY ==
[2023-01-03 13:43] VITALS: BP 137/87; PULSE 122; RESP 18; TEMP 36.5; O2SAT 97; BMI 28.8
[2023-01-03] MEDS: Doxycycline 100 MG CAPSULE PO (14:45)
--- NOTE | 2023-01-03 14:55 | EX.ED.DYSGE1 ---
HPI History of Present Illness Chief Complaint: Abscess Informant: patient Onset/Context/Timing Onset: Days (2) Context: Gradual Onset Timing: Continuous Quality: Sharp, burning Location: Tailbone, right gluteal area Worsened by: Sitting Relieved by: Nothing Narrative Narrative: Patient presents with perirectal abscess that has been getting worse over the past 2 days. Patient describes pain as sharp and burning. Patient states it has been constant. Patient states it is gradually gotten worse. Patient states it feels like it is over his tailbone and into his right gluteal area. Patient states it is worse with sitting. Patient states nothing makes it better. Patient denies any fevers or chills. Patient denies any discharge or drainage. [facility] Medical History Acute hyperglycemia Chronic venous stasis Emphysema, unspecified Hepatitis C History of deep venous thrombosis Hyponatremia Lymphedema Nicotine dependence Transaminitis Type 2 diabetes mellitus without complication Home Medications cholecalciferol (vitamin D3) 1,250 mcg (50,000 unit) tablet 1,250 mcg PO MO supplement 04/09/20 [History Last Taken 07/25/21] albuterol sulfate 90 mcg/actuation aerosol inhaler 1 - 2 mcg inhalation Q4H PRN PRN Shortness Of Breath 05/27/21 [History Last Taken 07/26/21] insulin detemir U-100 100 unit/mL (3 mL) subcutaneous pen (Levemir FlexTouch U-100 Insulin) 30 unit subcut QHS diabetes 05/27/21 [History Last Taken 07/25/21] metformin 1,000 mg tablet 1,000 mg PO BID diabetes 05/27/21 [History Last Taken 07/26/21] furosemide 40 mg tablet 40 mg PO BIDLX #60 tabs 07/29/21 [Rx Last Taken Unknown] potassium chloride 20 mEq tablet,extended release(part/cryst) (Klor-Con M) 20 meq PO BIDCM #60 tabs 07/29/21 [Rx Last Taken Unknown] insulin aspart U-100 100 unit/mL (3 mL) subcutaneous pen (Novolog FlexPen U-100 Insulin aspart) subcut 09/05/21 [History Last Taken Unknown] desonide 0.05 % topical cream 1 applic topical TID PRN itching #60 grams 09/11/22 [Rx Last Taken Unknown] doxycycline monohydrate 100 mg capsule 100 mg PO BID #20 CAPSULES 01/03/23 [Rx Last Taken Unknown] hydrocodone-acetaminophen 5-325mg 5mg-325mg 1 tab PO Q6H PRN PRN Pain 1 day #5 TABLETS 01/03/23 [Rx Last Taken Unknown] Allergy/AdvReac Type Severity Reaction Status Date / Time No Known Allergies Allergy Verified 01/03/23 13:42 Family History Brother Diabetes Sister Cirrhosis Surgical History History of appendectomy History of arthroscopic knee surgery History of bowel resection History of facial surgery History of inguinal hernia repair History of tibial fracture Social History Smoking Status: Current every day smoker tobacco type: cigarettes alcohol intake: never substance use type: does not use caffeine: Yes Type: coffee Number of servings: 1 ROS ROS ED Constitutional Constitutional ED: Denies chills or fever(s) Eyes Eyes: Denies blurry vision or change in vision ENT ENT ED: Denies rhinorrhea or sore throat Cardiovascular Cardiovascular: Denies chest pain or palpitations Respiratory/Chest Respiratory/Chest: Denies cough or dyspnea Gastrointestinal Gastrointestinal: Reports nausea; Denies vomiting Genitourinary Genitourinary ED: Denies dysuria or hematuria Musculoskeletal Musculoskeletal: Reports back pain; Denies neck pain Integumentary Reports abscess; Denies rash Neurologic Neurologic: Denies headache(s) or weakness Allergic/Immunologic Allergic/Immunologic ED: Denies mouth swelling or urticaria EXAM Physical Exam Const Vital Signs: 01/03/23 13:43 Temperature 97.7 F L Temperature Source Temporal Pulse Rate 122 H Respiratory Rate 18 Blood Pressure 137/87 H Blood Pressure Mean 103 Pulse Ox 97 Oxygen Delivery Method Room Air Positive well nourished and well developed General Appearance ED: well developed and NAD HEENT Reports moist mucous membranes Neck supple and no JVD Extremity normal to inspection General Extremety ED: Negative for edema or tenderness General Extremity: Negative for edema Neuro oriented x3, CN's II-XII intact bilaterally and no sensory deficits noted Sensorium / Orientation: alert Motor Exam: strength 5/5 throughout Psych mental status grossly normal Skin Skin Narrative: There is a tender indurated area over the right perirectal area. There is some fluctuance in the perianal area. There is no discharge or drainage. There is surrounding erythema. MDM MDM MDM Narrative Medical decision making narrative: Smoking cessation was discussed. Patient was advised that this is most likely a perianal abscess. Patient was given a dose of doxycycline here. Patient was advised of the need for incision and drainage. Patient is agreeable with this. Patient was advised of the risks and benefits associated with incision and drainage. Patient understood. Patient was given the opportunity ask any further questions. Patient had no other questions. The area was cleaned and prepped in a sterile manner. The area was anesthetized with 1% plain lidocaine locally. A small cruciate incision was made. There is a large amount of purulent drainage expressed. Dressing was applied. Patient tolerated the procedure well. Patient was given a dose of doxycycline here. Patient was given a prescription for doxycycline. Patient was instructed to follow-up with his primary care physician in 5 to 7 days. Patient understood and was agreeable with the plan. All questions were answered. Procedures Other Procedures Procedure(s): The area was cleaned with chlorhexidine prep. The area was anesthetized with 1% plain lidocaine locally. A small cruciate incision was made using an 11 blade scalpel. A large amount of purulent drainage was expressed. The wound was left open. Bacitracin dressing was applied. Patient tolerated the procedure well. Discharge Plan Triage Chief Complaint: Abscess ED Provider: Danny Aj Dx/Rx/DC Orders Clinical Impression: Perianal abscess, Nicotine dependence Instructions: ED Abscess Incision And Drainage Prescriptions: New doxycycline monohydrate 100 mg capsule 100 mg PO BID Qty: 20 0RF hydrocodone-acetaminophen [hydrocodone-acetaminophen] 5-325 mg tablet 1 tab PO Q6H PRN PRN (Reason: Pain) 1 Days Qty: 5 0RF No Action cholecalciferol (vitamin D3) 1,250 mcg (50,000 unit) tablet 1,250 mcg PO MO metformin 1,000 mg tablet 1,000 mg PO BID albuterol sulfate 90 mcg/actuation HFA aerosol inhaler 1 - 2 mcg INHALATION Q4H PRN PRN (Reason: Shortness Of Breath) Levemir FlexTouch U100 Insulin 100 unit/mL (3 mL) insulin pen 30 unit SUBCUT QHS furosemide 40 mg Tablet 40 mg PO BIDLX Qty: 60 0RF potassium chloride [Klor-Con M20] 20 mEq Tablet,Er Particles/Crystals 20 meq PO BIDCM Qty: 60 0RF insulin aspart U-100 [Novolog FlexPen U-100 Insulin] 100 unit/mL (3 mL) insulin pen SUBCUT desonide 0.05 % cream 1 applic topical TID PRN (Reason: itching) Qty: 60 2RF Primary Care Provider: Wanda Mallory Referrals: Wanda Mallory, [employer] [Primary Care Provider] - 5-7 Days Disposition Disposition: Home, Self Care
[2023-01-03] MEDS: Lidocaine 1% (20 ml mdv) 20 ML Vial INFILT (15:10)
[2023-01-03 15:30] VITALS: BP 136/78; PULSE 64; RESP 14; TEMP 36.6; O2SAT 100
[2023-01-03] MEDS: HYDROcodone Bitartrate/Apap 5/325 Tablet PO (15:35)
== END 2023-01-03 15:42 | disposition home or self-care (01) ==
PROVIDERS: Emergency Provider Emergency Medicine; PCP Nurse Practitioner Adult Health; Visit Provider Emergency Medicine
DX: K61.0 Anal abscess (principal); J43.9 Emphysema, unspecified; E11.9 Type 2 diabetes mellitus without complications; Z79.4 Long term (current) use of insulin; Z79.84 Long term (current) use of oral hypoglycemic drugs; Z79.899 Other long term (current) drug therapy; F17.210 Nicotine dependence, cigarettes, uncomplicated
CPT/HCPCS: 10060; 99283; A4216